=== PATIENT | male | born 1995 | race Caucasian/White ===

== ENCOUNTER 2017-12-17 23:28 | Emergency (ER) | payer MEDICAID, OTHER ==
[2017-12-18] MEDS ORDERED: Lopressor 50 MG PO ONE (00:06)
--- NOTE | 2017-12-18 00:06 | ERPHSYRPT ---
- History of Present Illness Time Seen by Provider: 12/17/17 23:55 Source: patient Exam Limitations: clinical condition Patient Subjective Stated Complaint: pt states he has a swollen gland on the right side of his throat that has been painful and edematous for approx 1 week. Triage Nursing Assessment: pt a&o x3; skin p, w, & d; no obvious distress noted ; ambulated to room per self. Physician History: PATIENT COMPLAINS OF SWOLLEN GLANDS, PAIN UPON SWALLOWING, OVER THE PAST 2 DAYS. DENIES DYSPNEA, COUGH, FEVER. Timing/Duration: day(s) Cough Quality/Degree: no cough Possible Cause: occasional episodes Modifying Factors: Improves With: activity Associated Symptoms: sore throat International travel in last 2 weeks: No Allergies/Adverse Reactions: No Known Drug Allergies Allergy (Verified 12/17/17 23:51) Hx Tetanus, Diphtheria Vaccination/Date Given: Yes Hx Influenza Vaccination/Date Given: No Hx Pneumococcal Vaccination/Date Given: Yes Immunizations Up to Date: No - Review of Systems Constitutional: No Fever, No Chills Eyes: No Symptoms Ears, Nose, & Throat: Throat Pain Respiratory: No Symptoms Cardiac: No Symptoms Abdominal/Gastrointestinal: No Symptoms Musculoskeletal: No Symptoms - Past Medical History Pertinent Past Medical History: Yes Neurological History: No Pertinent History ENT History: No Pertinent History Cardiac History: Arrhythmia Respiratory History: Asthma Endocrine Medical History: Hyperthyroidism, Other Musculoskeletal History: No Pertinent History GI Medical History: No Pertinent History History: No Pertinent History Psycho-Social History: Anxiety, Panic Disorder Male Reproductive Disorders: No Pertinent History Other Medical History: TACHYCARDIA. GRAVES DISEASE - Past Surgical History Past Surgical History: Yes Neuro Surgical History: No Pertinent History Cardiac: No Pertinent History Respiratory: No Pertinent History Gastrointestinal: No Pertinent History Genitourinary: No Pertinent History Musculoskeletal: No Pertinent History Male Surgical History: No Pertinent History Other Surgical History: TONSILS - Social History Smoking Status: Current every day smoker How long have you smoked: 5 Exposure to second hand smoke: Yes Drug Use: none Patient Lives Alone: No - Nursing Vital Signs Nursing Vital Signs: Initial Vital Signs Temperature 97.8 F 12/17/17 23:37 Pulse Rate 144 H 12/17/17 23:37 Respiratory Rate 20 12/17/17 23:37 Blood Pressure 137/90 12/17/17 23:37 O2 Sat by Pulse Oximetry 98 12/17/17 23:37 Pain Scale Pain Intensity 0 - Physical Exam General Appearance: no apparent distress, alert Eye Exam: PERRL/EOMI, eyes nml inspection Ears, Nose, Throat Exam: normal ENT inspection, TMs normal, pharynx normal, moist mucous membranes Neck Exam: normal inspection, non-tender, supple, full range of motion, lymphadenopathy Respiratory Exam: normal breath sounds, lungs clear, No respiratory distress Cardiovascular Exam: regular rate/rhythm, normal heart sounds, tachycardia Gastrointestinal/Abdomen Exam: soft, No tenderness Back Exam: normal inspection, No CVA tenderness, No vertebral tenderness Extremity Exam: normal inspection, normal range of motion Neurologic Exam: alert, oriented x 3, cooperative, normal mood/affect, sensation nml, No motor deficits Skin Exam: normal color, warm, dry, No rash Lymphatic Exam: No adenopathy SpO2: 98 Oxygen Delivery: Room Air Ordered Tests: Medication Summary Discontinued Medications Generic Name Dose Route Start Last Admin Trade Name Redq PRN Reason Stop Dose Admin Metoprolol Tartrate 50 mg 12/18/17 00:06 12/18/17 00:11 Lopressor 50 Mg PO 12/18/17 00:07 50 mg STAT ONE Administration Metoprolol Tartrate Confirm 12/18/17 00:10 Lopressor 50 Mg Administered 12/18/17 00:11 Dose 50 mg .ROUTE .[facility]-MED ONE - Progress Progress: re-examined, unchanged Progress Note: 12/18/17 00:32 ADMINISTERED LOPRESSOR 50MG ORALLY, AMOXICILLIN 500MG ORALLY Counseled pt/family regarding: lab results, diagnosis, need for follow-up - Departure Time of Disposition: 01:00 Departure Disposition: Home Clinical Impression: CERVICAL ADENITIS, MEDICATION NONCOMPLIANCE Condition: Stable Critical Care Time: No Referrals: EDDIE ROBERTSON [ACTIVE STAFF] - Additional Instructions: TAKE MEDICATIONS LOPRESSOR 50MG TWICE DAILY AND METHIMAZOLE 20 MG DAILY ALONG WITH ANTIBIOTIC AMOXICILLIN 500MG EVERY 8 HOURS FOR 10 DAYS. CONSULT YOUR PRIMARY CARE PROVIDER FOR FOLLOWUP IN 1 WEEK. Prescriptions: Amoxicillin 500 mg PO TID #21 capsule Methimazole [Northyx] 20 mg PO DAILY #30 tablet Metoprolol Tartrate [Lopressor] 50 mg PO BID #60 tablet
[2017-12-18] MEDS ORDERED: Lopressor 50 MG ONE (00:10)
[2017-12-18 01:08] VITALS: BP 115/91; PULSE 112; O2SAT 100
== END 2017-12-18 01:05 | disposition home or self-care (01) ==
LOC: ED 23:28
DX: I88.9 Nonspecific lymphadenitis, unspecified (principal); Z91.14 Patient's other noncompliance with medication regimen
CPT/HCPCS: 87651; 99283; A9270-GY

== ENCOUNTER 2017-12-27 08:27 | Emergency (ER) | payer OTHER ==
[2017-12-27] MEDS ORDERED: Sodium Chloride 0.9% 1000 ML 1,000 ML IV STA (08:38)
[2017-12-27] MEDS ORDERED: MORPHINE SULFATE 4 MG INJ IV ONE (08:38)
[2017-12-27] MEDS ORDERED: Zofran 4 MG/2 ML VIAL IV ONE (08:38)
[2017-12-27] MEDS ORDERED: Sodium Chloride 0.9% 1000 ML 1,000 ML ONE (08:43)
[2017-12-27] MEDS ORDERED: Zofran 4 MG/2 ML VIAL ONE (08:46)
[2017-12-27] MEDS ORDERED: MORPHINE SULFATE 4 MG INJ ONE (08:46)
[2017-12-27] MEDS ORDERED: BABY ASPIRIN 81 MG CHEW ONE (08:47)
[2017-12-27] MEDS ORDERED: BABY ASPIRIN 81 MG CHEW PO ONE (08:49)
--- NOTE | 2017-12-27 08:49 | ERPHSYRPT ---
- History of Present Illness Time Seen by Provider: 12/27/17 08:43 Historian: patient Exam Limitations: no limitations Physician History: 22-year-old white male with history of hyperthyroidism, asthma, arrhythmia, panic disorder, anxiety, tachycardia, Patient arrives with complaint of pain in the epigastric and low substernal region described as sharp worse with breathing associated with nausea associated with shortness of breath onset at approximately 7:30 this morning patient states he was playing video games when it came on. Past medical history includes hyperthyroidism, asthma, arrhythmia, panic disorder, anxiety, tachycardia. Past surgical history includes tonsils is he still him him social history includes tobacco use gasoline given aspirin there is no reason he can't transfer techs to him. . Timing/Duration: today (7:30 this morning states similar episode yesterday am same time) Activities at Onset: other (playing video games) Quality: sharpness Location: substernal, epigastric Chest Pain Radiation: no radiation Severity of Pain-Max: moderate Modifying Factors: Improves With: breathing (worse with breathing) Associated Symptoms: nausea, abdominal pain (epigastric pain), shortness of breath, hurts to breathe (pain with breathing), No vomiting, No palpitations, No heartburn, No cough, No diaphoresis, No fever, No fatigue, No weakness, No swelling/lump in chest, No syncope, No rash, No headache, No dizziness, No edema , No back pain Prior Chest Pain/Cardiac Workup: no prior chest pain Nitro Today/Relief: no nitro taken today Aspirin Treatment Today: 81 mg x 4, provided by ED Allergies/Adverse Reactions: No Known Drug Allergies Allergy (Verified 12/17/17 23:51) Hx Tetanus, Diphtheria Vaccination/Date Given: Yes Hx Influenza Vaccination/Date Given: No Hx Pneumococcal Vaccination/Date Given: Yes - Review of Systems Constitutional: No Fever, No Chills Eyes: No Symptoms Ears, Nose, & Throat: No Symptoms, Stridor Respiratory: Dyspnea, No Cough, No Cyanosis, No Stridor, No Wheezing, No Other Cardiac: Chest Pain (low substernal and epigastric chest pain) Abdominal/Gastrointestinal: Abdominal Pain (Epigastric pain), Nausea, No Vomiting, No Diarrhea, No Constipation, No Hematemesis, No Hematochezia, No Melena, No Dysphagia, No Appetite Changes Genitourinary Symptoms: No Symptoms Musculoskeletal: No Back Pain, No Neck Pain Skin: No Symptoms, No Rash Neurological: No Dizziness, No Focal Weakness, No Sensory Changes Psychological: No Symptoms Endocrine: No Symptoms All Other Systems: Reviewed and Negative - Past Medical History Pertinent Past Medical History: Yes Neurological History: No Pertinent History ENT History: No Pertinent History Cardiac History: Arrhythmia Respiratory History: Asthma Endocrine Medical History: Hyperthyroidism, Other Musculoskeletal History: No Pertinent History GI Medical History: No Pertinent History History: No Pertinent History Psycho-Social History: Anxiety, Panic Disorder Male Reproductive Disorders: No Pertinent History Other Medical History: TACHYCARDIA. GRAVES DISEASE - Past Surgical History Past Surgical History: Yes Neuro Surgical History: No Pertinent History Cardiac: No Pertinent History Respiratory: No Pertinent History Gastrointestinal: No Pertinent History Genitourinary: No Pertinent History Musculoskeletal: No Pertinent History Male Surgical History: No Pertinent History Other Surgical History: TONSILS - Social History Smoking Status: Current every day smoker How long have you smoked: 5 Exposure to second hand smoke: Yes Drug Use: none Patient Lives Alone: No - Nursing Vital Signs Nursing Vital Signs: Initial Vital Signs Temperature 97.7 F 12/27/17 08:28 Pulse Rate 118 H 12/27/17 08:28 Respiratory Rate 18 12/27/17 08:28 Blood Pressure 160/99 12/27/17 08:28 O2 Sat by Pulse Oximetry 99 12/27/17 08:28 Pain Scale Pain Intensity 0 - Physical Exam General Appearance: moderate distress, anxiety, thin Eye Exam: PERRL/EOMI, eyes nml inspection Ears, Nose, Throat Exam: normal ENT inspection, moist mucous membranes Neck Exam: normal inspection, non-tender, supple, full range of motion Respiratory Exam: normal breath sounds, lungs clear, No respiratory distress Cardiovascular Exam: regular rate/rhythm, normal heart sounds, tachycardia ( mild tachycardia), capillary refill <2 sec Gastrointestinal/Abdomen Exam: soft, normal bowel sounds, No tenderness, No mass Back Exam: normal inspection, No CVA tenderness, No vertebral tenderness Extremity Exam: normal inspection, normal range of motion Neurologic Exam: alert, oriented x 3, cooperative, note teller II-XII nml as tested, normal mood/affect, sensation nml, No motor deficits Skin Exam: normal color, warm, dry SpO2 Interpretation: normal (99%), borderline oxygenation - Course Nursing assessment & vital signs reviewed: Yes EKG Interpreted by Me: RATE (105 bpm), Sinus Rhythm, Sinus Tach, NORMAL AXIS, Other (EKG: Sinus tachycardia 105 bpm, normal axis, no acute ST or T wave changes) - Radiology Exams Chest X-ray Interpretation: Interpreted by me (no acute disease process noted) Ordered Tests: Active Orders 24 hr Category Date Time Status Refrigerator Repairman STAT Care 12/27/17 08:39 Active EKG-ER Only STAT Care 12/27/17 08:38 Active IV Insertion STAT Care 12/27/17 08:38 Active Pulse Oximetry (ED) STAT Care 12/27/17 08:38 Active Regular Diet Diet 12/27/17 Dinner Active CHEST 1 VIEW (PORTABLE) Stat Exams 12/27/17 08:39 Taken AMYLASE Routine Lab 12/27/17 08:40 Completed CBC W DIFF Stat Lab 12/27/17 08:40 Completed CMP Routine Lab 12/27/17 08:40 Completed D-DIMER QUANTITATION Stat Lab 12/27/17 08:40 Completed LIPASE Routine Lab 12/27/17 08:40 Completed PROTIME WITH INR Stat Lab 12/27/17 08:40 Completed PTT Stat Lab 12/27/17 08:40 Completed TROPONIN Q3H Lab 12/27/17 08:40 Completed TROPONIN Q3H Lab 12/27/17 11:47 Completed TROPONIN Q3H Lab 12/27/17 14:45 Ordered TROPONIN Q3H Lab 12/27/17 17:45 Ordered TROPONIN Q3H Lab 12/27/17 20:45 Ordered TSH [TSH, 3RD Generation] Stat Lab 12/27/17 08:40 Completed Urine Triage Profile Stat Lab 12/27/17 09:47 Completed Medication Summary Discontinued Medications Generic Name Dose Route Start Last Admin Trade Name Freq PRN Reason Stop Dose Admin Aspirin 324 mg 12/27/17 08:49 12/27/17 08:58 Baby Aspirin 81 Mg Chew PO 12/27/17 08:50 324 mg STAT ONE Administration Aspirin Confirm 12/27/17 08:47 Baby Aspirin 81 Mg Chew Administered 12/27/17 08:48 Dose 324 mg .ROUTE .STK-MED ONE Sodium Chloride 1,000 mls @ 999 mls/hr 12/27/17 08:38 12/27/17 10:05 Sodium Chloride 0.9% 1000 Ml IV 12/27/17 09:38 Infused .Q1H1M STA Infusion Sodium Chloride Confirm 12/27/17 08:43 Sodium Chloride 0.9% 1000 Ml Administered 12/27/17 08:44 Dose 1,000 mls @ ud .ROUTE .STK-MED ONE Morphine Sulfate 4 mg 12/27/17 08:38 12/27/17 08:48 Morphine Sulfate 4 Mg Inj IV 12/27/17 08:39 4 mg STAT ONE Administration Morphine Sulfate Confirm 12/27/17 08:46 Morphine Sulfate 4 Mg Inj Administered 12/27/17 08:47 Dose 4 mg .ROUTE .STK-MED ONE Ondansetron HCl 4 mg 12/27/17 08:38 12/27/17 08:48 Zofran 4 Mg/2 Ml Vial IV 12/27/17 08:39 4 mg STAT ONE Administration Ondansetron HCl Confirm 12/27/17 08:46 Zofran 4 Mg/2 Ml Vial Administered 12/27/17 08:47 Dose 4 mg .ROUTE .STK-MED ONE Potassium Chloride 20 meq 12/27/17 09:49 12/27/17 10:02 Klor Con 10 Meq PO 12/27/17 09:50 20 meq STAT ONE Administration Potassium Chloride Confirm 12/27/17 10:01 Klor Con 10 Meq Administered 12/27/17 10:02 Dose 20 meq PO .STK-MED ONE Lab/Rad Data: Laboratory Result Diagrams 12/27/17 08:40 12/27/17 08:40 Laboratory Results 12/27/17 12/27/17 12/27/17 Range/Units 11:47 09:47 08:40 WBC (4.0-10.5) K/mm3 RBC (4.1-5.6) M/mm3 Hgb (12.5-18.0) gm/dl Hct (42-50) % MCV (78-100) fl MCH (26-32) pg MCHC (32-36) g/dl RDW (11.5-14.0) % Plt Count (150-450) K/mm3 MPV (6-9.5) fl Gran % (36.0-66.0) % Eos # (Auto) (0-0.5) Absolute Lymphs (auto) (1.0-4.6) Absolute Monos (auto) (0.0-1.3) Lymphocytes % (24.0-44.0) % Monocytes % (0.0-12.0) % Eosinophils % (0.00-5.0) % Basophils % (0.0-0.4) % Absolute Granulocytes (1.4-6.9) Basophils # (0-0.4) PT (8.83-12.87) SECONDS INR (0.8-3.0) APTT (24.1-36.1) SECONDS D-Dimer (215-500) ng/mL Sodium (137-145) mmol/L Potassium (3.5-5.1) mmol/L Chloride (98-107) mmol/L Carbon Dioxide (22-30) mmol/L Anion Gap (5-15) MEQ/L BUN (9-20) mg/dL Creatinine (0.66-1.25) mg/dL Estimated GFR ML/MIN Glucose (74-106) mg/dL Calcium (8.4-10.2) mg/dL Total Bilirubin (0.2-1.3) mg/dL AST (17-59) U/L ALT (0-50) U/L Alkaline Phosphatase (38-126) U/L Troponin I < 0.012 (0.000-0.034) ng/mL Serum Total Protein (6.3-8.2) g/dL Albumin (3.5-5.0) g/dL Amylase (30-110) U/L Lipase (23-300) U/L Free T4 5.02 H (0.76-1.46) ng/dL TSH 3rd Generation (0.47-4.68) mIU/L Urine Opiates Level POSITIVE (NEGATIVE) Ur Methadone NEGATIVE (NEGATIVE) Urine Barbiturates NEGATIVE (NEGATIVE) Ur Phencyclidine (PCP) NEGATIVE (NEGATIVE) Urine Amphetamine NEGATIVE (NEGATIVE) U Benzodiazepine Level NEGATIVE (NEGATIVE) Urine Cocaine NEGATIVE (NEGATIVE) Urine Marijuana (THC) NEGATIVE (NEGATIVE) Slides for Path Review 12/27/17 12/27/17 12/27/17 Range/Units 08:40 08:40 08:40 WBC (4.0-10.5) K/mm3 RBC (4.1-5.6) M/mm3 Hgb (12.5-18.0) gm/dl Hct (42-50) % MCV (78-100) fl MCH (26-32) pg MCHC (32-36) g/dl RDW (11.5-14.0) % Plt Count (150-450) K/mm3 MPV (6-9.5) fl Gran % (36.0-66.0) % Eos # (Auto) (0-0.5) Absolute Lymphs (auto) (1.0-4.6) Absolute Monos (auto) (0.0-1.3) Lymphocytes % (24.0-44.0) % Monocytes % (0.0-12.0) % Eosinophils % (0.00-5.0) % Basophils % (0.0-0.4) % Absolute Granulocytes (1.4-6.9) Basophils # (0-0.4) PT 12.6 (8.83-12.87) SECONDS INR 1.08 (0.8-3.0) APTT 29.5 (24.1-36.1) SECONDS D-Dimer < 215 L (215-500) ng/mL Sodium 139 (137-145) mmol/L Potassium 3.2 L (3.5-5.1) mmol/L Chloride 101 (98-107) mmol/L Carbon Dioxide 25 (22-30) mmol/L Anion Gap 16.4 H (5-15) MEQ/L BUN 10 (9-20) mg/dL Creatinine 0.33 L (0.66-1.25) mg/dL Estimated GFR > 60.0 ML/MIN Glucose 120 H (74-106) mg/dL Calcium 9.9 (8.4-10.2) mg/dL Total Bilirubin 0.40 (0.2-1.3) mg/dL AST 30 (17-59) U/L ALT 31 (0-50) U/L Alkaline Phosphatase 206 H (38-126) U/L Troponin I < 0.012 (0.000-0.034) ng/mL Serum Total Protein 7.9 (6.3-8.2) g/dL Albumin 4.8 (3.5-5.0) g/dL Amylase 43 (30-110) U/L Lipase 72 (23-300) U/L Free T4 (0.76-1.46) ng/dL TSH 3rd Generation < 0.015 L (0.47-4.68) mIU/L Urine Opiates Level (NEGATIVE) Ur Methadone (NEGATIVE) Urine Barbiturates (NEGATIVE) Ur Phencyclidine (PCP) (NEGATIVE) Urine Amphetamine (NEGATIVE) U Benzodiazepine Level (NEGATIVE) Urine Cocaine (NEGATIVE) Urine Marijuana (THC) (NEGATIVE) Slides for Path Review 12/27/17 Range/Units 08:40 WBC 11.1 H (4.0-10.5) K/mm3 RBC 5.37 (4.1-5.6) M/mm3 Hgb 14.7 (12.5-18.0) gm/dl Hct 44.0 (42-50) % MCV 81.9 (78-100) fl MCH 27.4 (26-32) pg MCHC 33.4 (32-36) g/dl RDW 13.0 (11.5-14.0) % Plt Count 270 (150-450) K/mm3 MPV 10.0 H (6-9.5) fl Gran % 39.6 (36.0-66.0) % Eos # (Auto) 0.25 (0-0.5) Absolute Lymphs (auto) 5.32 H (1.0-4.6) Absolute Monos (auto) 1.09 (0.0-1.3) Lymphocytes % 48.1 H (24.0-44.0) % Monocytes % 9.8 (0.0-12.0) % Eosinophils % 2.3 (0.00-5.0) % Basophils % 0.2 (0.0-0.4) % Absolute Granulocytes 4.39 (1.4-6.9) Basophils # 0.02 (0-0.4) PT (8.83-12.87) SECONDS INR (0.8-3.0) APTT (24.1-36.1) SECONDS D-Dimer (215-500) ng/mL Sodium (137-145) mmol/L Potassium (3.5-5.1) mmol/L Chloride (98-107) mmol/L Carbon Dioxide (22-30) mmol/L Anion Gap (5-15) MEQ/L BUN (9-20) mg/dL Creatinine (0.66-1.25) mg/dL Estimated GFR ML/MIN Glucose (74-106) mg/dL Calcium (8.4-10.2) mg/dL Total Bilirubin (0.2-1.3) mg/dL AST (17-59) U/L ALT (0-50) U/L Alkaline Phosphatase (38-126) U/L Troponin I (0.000-0.034) ng/mL Serum Total Protein (6.3-8.2) g/dL Albumin (3.5-5.0) g/dL Amylase (30-110) U/L Lipase (23-300) U/L Free T4 (0.76-1.46) ng/dL TSH 3rd Generation (0.47-4.68) mIU/L Urine Opiates Level (NEGATIVE) Ur Methadone (NEGATIVE) Urine Barbiturates (NEGATIVE) Ur Phencyclidine (PCP) (NEGATIVE) Urine Amphetamine (NEGATIVE) U Benzodiazepine Level (NEGATIVE) Urine Cocaine (NEGATIVE) Urine Marijuana (THC) (NEGATIVE) Slides for Path Review YES - Progress Progress: improved Air Movement: fair Progress Note: 12/27/17 09:39 22-year-old white male with history of hyperthyroidism, asthma, arrhythmia, panic disorder, anxiety, tachycardia, Graves' disease Patient arrives with complaint of epigastric and low substernal chest pain described as a sharpness onset at 7:30 this morning associated with nausea and shortness of breath. Patient states he took a metoprolol tablet this morning He states he has not been taking this regularly. He is given morphine and Zofran 1 L of fluids he is feeling better. Blood pressure is somewhat elevated. Patient's labs essentially normal with the exception of a potassium of 3.2 troponin within normal limits white count mildly elevated at 11.1 chest x-ray no acute disease process are noted. Plan to repeat troponin 3 hours after last draw. 12/27/17 10:40 Patient continues to do well. Blood pressure is stable heart rate improved. Family states patient has not been taking his home medications. Patient's troponin within normal limits chemistry essentially normal with the exception of a potassium of 3.2. CBC White blood cell 11.1 hemoglobin 14.7 hematocrit 44. Amylase and lipase within normal limits chest x-ray no acute changes EKG sinus tachycardia 10 5 bpm normal axis no acute ST or T wave changes. Patient did have elevated free T4 of 5.02 TSH is less than 0.015. I've discussed the patient's case with Dr. Fontenot. Patient will most likely be released after second troponin if it is normal. will be reinforced that the patient needs to take his medications as prescribed on a regular basis. Patient will need to follow-up with Dr. Fontenot. 12/27/17 12:32 Patient without further chest pain. Patient's blood pressure heart rate are stable. Repeat troponin within normal limits. Will plan to discharge patient. Patient advised to be sure that he takes his medications at home as prescribed. Patient advised to contact Dr. Fontenot's office and schedule an appointment for follow-up. - Departure Time of Disposition: 12:33 Departure Disposition: Home Clinical Impression: Hyperthyroidism, Epigastric abdominal pain Chest pain Qualifiers: Chest pain type: unspecified Qualified Code(s): R07.9 - Chest pain, unspecified Condition: Fair Critical Care Time: No Referrals: DOCTOR,NO FAMILY [NON-STAFF PHY W/O PRIVILEGES] - Additional Instructions: Return home. Rest. Take your medications as prescribed by your family doctor. Follow-up with your family doctor. Return for acute distress or for severe symptoms.
[2017-12-27 09:15] LABS: BASOPHIL % 0.2 % (0.0-0.4); Basophil (Absolute #) 0.02 (0-0.4); Eosinophil % 2.3 % (0.00-5.0); Eosinophil (Absolute #) 0.25 (0-0.5); Granulocyte Absolute (ANC) 4.39 (1.4-6.9); Granulocytes % 39.6 % (36.0-66.0); Hemoglobin 14.7 gm/dl (12.5-18.0); Lymphocyte (Absolute #) 5.32 (1.0-4.6); Lymphocytes % 48.1 % (24.0-44.0); Mean Cell Volume 81.9 fl (78-100); Mean Corpuscular Hemoglobin 27.4 pg (26-32); Mean Corpuscular Hgb Concent. 33.4 g/dl (32-36); Monocyte (Absolute #) 1.09 (0.0-1.3); Monocytes % 9.8 % (0.0-12.0); Platelet Count 270 K/mm3 (150-450); Red Blood Count 5.37 M/mm3 (4.1-5.6); White Blood Count 11.1 K/mm3 (4.0-10.5)
[2017-12-27 09:17] LABS: INR 1.08 (0.8-3.0)
[2017-12-27 09:19] LABS: PTT 29.5 SECONDS (24.1-36.1)
[2017-12-27 09:30] LABS: D-DIMER QUANTITATION < 215 ng/mL (215-500)
[2017-12-27 09:32] LABS: ALBUMIN 4.8 g/dL (3.5-5.0); ALKALINE PHOSPHATASE 206 U/L (38-126); AMYLASE 43 U/L (30-110); ANION GAP 16.4 MEQ/L (5-15); BLOOD UREA NITROGEN 10 mg/dL (9-20); CHLORIDE 101 mmol/L (98-107); Calcium 9.9 mg/dL (8.4-10.2); Carbon Dioxide 25 mmol/L (22-30); Creatinine 1 0.33 mg/dL (0.66-1.25); Glucose 120 mg/dL (74-106); LIPASE 72 U/L (23-300); Potassium 3.2 mmol/L (3.5-5.1); SGOT/AST 30 U/L (17-59); SGPT/ALT 31 U/L (0-50); SODIUM 139 mmol/L (137-145); TROPONIN < 0.012 ng/mL (0.000-0.034); Total Protein 7.9 g/dL (6.3-8.2)
[2017-12-27] MEDS ORDERED: Klor Con 10 MEQ PO ONE ×2 (09:49→10:01)
[2017-12-27 10:11] LABS: Amphetamine,Urine NEGATIVE (NEGATIVE); Barbiturate,Urine NEGATIVE (NEGATIVE); Benzodiazepine,Urine NEGATIVE (NEGATIVE); Cocaine,Urine NEGATIVE (NEGATIVE); Methadone,Urine NEGATIVE (NEGATIVE); Opiate,Urine POSITIVE (NEGATIVE); PCP,Urine NEGATIVE (NEGATIVE); THC,Urine NEGATIVE (NEGATIVE)
[2017-12-27 11:37] LABS: Slide Review 1 YES
[2017-12-27 12:45] VITALS: BP 126/63; PULSE 80; O2SAT 97
--- NOTE | 2017-12-28 10:48 | XRAY ---
Indication: Lower chest/upper abdomen pain. Comparison: June 10, 2014. Portable chest remains hyperinflated and clear. Heart and mediastinal structures within normal limits. Bony thorax intact. Impression: Stable nonacute hyperinflated chest.
== END 2017-12-27 12:43 | disposition home or self-care (01) ==
LOC: ED 08:27
DX: R07.89 Other chest pain (principal); E05.90 Thyrotoxicosis, unspecified without thyrotoxic crisis or storm; R10.13 Epigastric pain; R06.00 Dyspnea, unspecified; R11.0 Nausea
CPT/HCPCS: 36000; 36415; 71045; 80053; 80307; 82150; 83690; 84439; 84443; 84484; 85025; 85379; 85610; 85730; 93005; 93041; 96360; 96374; 96375; 99284; J2270; J2405; A9270-GY

== ENCOUNTER 2017-12-31 04:13 | Observation (INO) | payer OTHER ==
[2017-12-31] MEDS ORDERED: Sodium Chloride 0.9% 1000 ML 1,000 ML IV STA (04:28)
[2017-12-31] MEDS ORDERED: BABY ASPIRIN 81 MG CHEW PO ONE (04:28)
[2017-12-31] MEDS ORDERED: Pepcid 20 MG VIAL IV ONE ×2 (04:30→04:33)
[2017-12-31] MEDS ORDERED: Sodium Chloride 0.9% 1000 ML 1,000 ML ONE (04:30)
[2017-12-31] MEDS ORDERED: BABY ASPIRIN 81 MG CHEW ONE (04:33)
--- NOTE | 2017-12-31 04:36 | ERPHSYRPT ---
- History of Present Illness Time Seen by Provider: 12/31/17 04:26 Historian: patient Exam Limitations: no limitations Patient Subjective Stated Complaint: pt states he has been having chest pain since approx . points to lt lower chest/luq Triage Nursing Assessment: pt alert and oriented, asnwers questions approp. pt ambulatory with steady gait noted. respirations nonlabored with lungs cta. heart rate 110 on monitor sinus tach. skin pink warn and dry. Physician History: This is a 22-year-old white male with history of hyperthyroidism, asthma, arrhythmia, panic disorder, anxiety, tachycardia, Graves' disease Patient arrives with complaint of pain in his upper abdomen low chest the symptoms for 1-3 hours associated with shortness of breath no nausea no vomiting. Patient was seen here on December 27 for the same thing at that time patient had normal EKG normal troponin 2 he was noted to have an elevated free T4 and a decreased thyroid stimulating hormone. Patient at that time as well had not been taking his metoprolol. He states he has now been taking his metoprolol he states he was out walking when the pain began today. Past medical history includes hyperthyroidism, asthma, arrhythmia, panic disorder, anxiety, tachycardia, Graves' disease. Past surgical history includes tonsils. Timing/Duration: today (1-3 hours ago) Activities at Onset: other (walking) Quality: sharpness Location: epigastric, abdomen (upper abdomen), other (low chest epigastric region) Chest Pain Radiation: no radiation Severity of Pain-Max: moderate Severity of Pain-Current: moderate Modifying Factors: Improves With: nothing Associated Symptoms: shortness of breath, No nausea, No vomiting, No palpitations, No heartburn, No abdominal pain, No cough, No hurts to breathe, No diaphoresis, No chills, No fever, No fatigue, No weakness, No swelling/lump in chest, No syncope, No rash, No headache, No dizziness, No edema, No back pain Prior Chest Pain/Cardiac Workup: no prior chest pain (patient seen here 4 days ago for same complaint) Nitro Today/Relief: no nitro taken today Aspirin Treatment Today: 81 mg x 4, provided by ED Allergies/Adverse Reactions: No Known Drug Allergies Allergy (Verified 12/31/17 04:24) Hx Tetanus, Diphtheria Vaccination/Date Given: Yes Hx Influenza Vaccination/Date Given: No Hx Pneumococcal Vaccination/Date Given: Yes Immunizations Up to Date: Yes - Review of Systems Constitutional: No Fever, No Chills Eyes: No Symptoms Ears, Nose, & Throat: No Symptoms Respiratory: Dyspnea, No Cough, No Cyanosis, No Dyspnea on Exertion (LINDQUIST), No Stridor Cardiac: Chest Pain, No Edema, No Palpitations, No Syncope, No Orthopnea Abdominal/Gastrointestinal: No Abdominal Pain, No Nausea, No Vomiting, No Diarrhea Genitourinary Symptoms: No Dysuria Musculoskeletal: No Back Pain, No Neck Pain Skin: No Rash Neurological: No Dizziness, No Focal Weakness, No Sensory Changes Psychological: No Symptoms Endocrine: No Symptoms All Other Systems: Reviewed and Negative - Past Medical History Pertinent Past Medical History: Yes Neurological History: No Pertinent History ENT History: No Pertinent History Cardiac History: Arrhythmia Respiratory History: Asthma Endocrine Medical History: Hyperthyroidism, Other Musculoskeletal History: No Pertinent History GI Medical History: No Pertinent History History: No Pertinent History Psycho-Social History: Anxiety, Panic Disorder Male Reproductive Disorders: No Pertinent History Other Medical History: TACHYCARDIA. GRAVES DISEASE - Past Surgical History Past Surgical History: Yes Neuro Surgical History: No Pertinent History Cardiac: No Pertinent History Respiratory: No Pertinent History Gastrointestinal: No Pertinent History Genitourinary: No Pertinent History Musculoskeletal: No Pertinent History Male Surgical History: No Pertinent History Other Surgical History: TONSILS - Social History Smoking Status: Current every day smoker How long have you smoked: 5 Exposure to second hand smoke: Yes Drug Use: none Patient Lives Alone: No - Nursing Vital Signs Nursing Vital Signs: Initial Vital Signs Pulse Rate 110 H 12/31/17 04:14 Respiratory Rate 18 12/31/17 04:14 Blood Pressure 152/90 12/31/17 04:14 O2 Sat by Pulse Oximetry 100 12/31/17 04:14 Pain Scale Pain Intensity 5 - Physical Exam General Appearance: mild distress, anxiety Eye Exam: PERRL/EOMI, eyes nml inspection Ears, Nose, Throat Exam: normal ENT inspection, moist mucous membranes Neck Exam: normal inspection, non-tender, supple, full range of motion Respiratory Exam: normal breath sounds, lungs clear, No respiratory distress Cardiovascular Exam: tachycardia Gastrointestinal/Abdomen Exam: soft, No tenderness, No mass Back Exam: normal inspection, No CVA tenderness, No vertebral tenderness Extremity Exam: normal inspection, normal range of motion Neurologic Exam: alert, oriented x 3, cooperative, director of patient financial services II-XII nml as tested, normal mood/affect, sensation nml, No motor deficits Skin Exam: normal color, warm, dry SpO2 Interpretation: normal (100%) SpO2: 100 Oxygen Delivery: Room Air - Course Nursing assessment & vital signs reviewed: Yes EKG Interpreted by Me: RATE (101 bpm), Sinus Tach, NORMAL AXIS, Other (EKG: Sinus tachycardia, 101 bpm, normal axis, no acute sst or t wave changes noted.) Ordered Tests: Active Orders 24 hr Category Date Time Status Entry Driver Operator STAT Care 12/31/17 04:29 Active EKG-ER Only STAT Care 12/31/17 04:28 Active IV Insertion STAT Care 12/31/17 04:28 Active Pulse Oximetry (ED) STAT Care 12/31/17 04:28 Active CHEST 1 VIEW (PORTABLE) Stat Exams 12/31/17 04:29 Taken AMYLASE Stat Lab 12/31/17 04:20 Completed CBC W DIFF Stat Lab 12/31/17 04:20 Completed CMP Stat Lab 12/31/17 04:20 Completed D-DIMER QUANTITATION Stat Lab 12/31/17 04:20 Completed LIPASE Stat Lab 12/31/17 04:20 Completed PROTIME WITH INR Stat Lab 12/31/17 04:20 Completed PTT Stat Lab 12/31/17 04:20 Completed TROPONIN Q3H Lab 12/31/17 04:20 Completed TROPONIN Q3H Lab 12/31/17 07:30 Ordered TROPONIN Q3H Lab 12/31/17 10:30 Ordered TROPONIN Q3H Lab 12/31/17 13:30 Ordered TROPONIN Q3H Lab 12/31/17 16:30 Ordered Medication Summary Discontinued Medications Generic Name Dose Route Start Last Admin Trade Name Freq PRN Reason Stop Dose Admin Aspirin 324 mg 12/31/17 04:28 12/31/17 04:38 Baby Aspirin 81 Mg Chew PO 12/31/17 04:29 324 mg STAT ONE Administration Aspirin Confirm 12/31/17 04:33 Baby Aspirin 81 Mg Chew Administered 12/31/17 04:34 Dose 324 mg .ROUTE .STK-MED ONE Famotidine 20 mg 12/31/17 04:30 12/31/17 04:38 Pepcid 20 Mg Vial IV 12/31/17 04:31 20 mg STAT ONE Administration Famotidine Confirm 12/31/17 04:33 Pepcid 20 Mg Vial Administered 12/31/17 04:34 Dose 20 mg IV .STK-MED ONE Sodium Chloride 1,000 mls @ 999 mls/hr 12/31/17 04:28 12/31/17 04:38 Sodium Chloride 0.9% 1000 Ml IV 12/31/17 05:28 999 mls/hr .Q1H1M STA Administration Sodium Chloride Confirm 12/31/17 04:30 Sodium Chloride 0.9% 1000 Ml Administered 12/31/17 04:31 Dose 1,000 mls @ ud .ROUTE .STK-MED ONE Lab/Rad Data: Laboratory Result Diagrams 12/31/17 04:20 12/31/17 04:20 Laboratory Results 12/31/17 12/31/17 12/31/17 Range/Units 04:20 04:20 04:20 WBC (4.0-10.5) K/mm3 RBC (4.1-5.6) M/mm3 Hgb (12.5-18.0) gm/dl Hct (42-50) % MCV (78-100) fl MCH (26-32) pg MCHC (32-36) g/dl RDW (11.5-14.0) % Plt Count (150-450) K/mm3 MPV (6-9.5) fl Gran % (36.0-66.0) % Eos # (Auto) (0-0.5) Absolute Lymphs (auto) (1.0-4.6) Absolute Monos (auto) (0.0-1.3) Lymphocytes % (24.0-44.0) % Monocytes % (0.0-12.0) % Eosinophils % (0.00-5.0) % Basophils % (0.0-0.4) % Absolute Granulocytes (1.4-6.9) Basophils # (0-0.4) PT 12.9 H (8.83-12.87) SECONDS INR 1.11 (0.8-3.0) APTT 30.7 (24.1-36.1) SECONDS D-Dimer < 215 L (215-500) ng/mL Sodium (137-145) mmol/L Potassium (3.5-5.1) mmol/L Chloride (98-107) mmol/L Carbon Dioxide (22-30) mmol/L Anion Gap (5-15) MEQ/L BUN (9-20) mg/dL Creatinine (0.66-1.25) mg/dL Estimated GFR ML/MIN Glucose (74-106) mg/dL Calcium (8.4-10.2) mg/dL Total Bilirubin (0.2-1.3) mg/dL AST (17-59) U/L ALT (0-50) U/L Alkaline Phosphatase (38-126) U/L Troponin I < 0.012 (0.000-0.034) ng/mL Serum Total Protein (6.3-8.2) g/dL Albumin (3.5-5.0) g/dL Amylase 34 (30-110) U/L Lipase 69 (23-300) U/L 12/31/17 12/31/17 Range/Units 04:20 04:20 WBC 8.9 (4.0-10.5) K/mm3 RBC 5.89 H (4.1-5.6) M/mm3 Hgb 16.2 (12.5-18.0) gm/dl Hct 48.2 (42-50) % MCV 81.8 (78-100) fl MCH 27.5 (26-32) pg MCHC 33.6 (32-36) g/dl RDW 13.3 (11.5-14.0) % Plt Count 264 (150-450) K/mm3 MPV 9.9 H (6-9.5) fl Gran % 52.8 (36.0-66.0) % Eos # (Auto) 0.17 (0-0.5) Absolute Lymphs (auto) 3.38 (1.0-4.6) Absolute Monos (auto) 0.65 (0.0-1.3) Lymphocytes % 37.9 (24.0-44.0) % Monocytes % 7.3 (0.0-12.0) % Eosinophils % 1.9 (0.00-5.0) % Basophils % 0.1 (0.0-0.4) % Absolute Granulocytes 4.71 (1.4-6.9) Basophils # 0.01 (0-0.4) PT (8.83-12.87) SECONDS INR (0.8-3.0) APTT (24.1-36.1) SECONDS D-Dimer (215-500) ng/mL Sodium 138 (137-145) mmol/L Potassium 3.6 (3.5-5.1) mmol/L Chloride 100 (98-107) mmol/L Carbon Dioxide 24 (22-30) mmol/L Anion Gap 17.5 H (5-15) MEQ/L BUN 13 (9-20) mg/dL Creatinine 0.37 L (0.66-1.25) mg/dL Estimated GFR > 60.0 ML/MIN Glucose 106 (74-106) mg/dL Calcium 10.0 (8.4-10.2) mg/dL Total Bilirubin 0.40 (0.2-1.3) mg/dL AST 20 (17-59) U/L ALT 28 (0-50) U/L Alkaline Phosphatase 200 H (38-126) U/L Troponin I (0.000-0.034) ng/mL Serum Total Protein 8.4 H (6.3-8.2) g/dL Albumin 5.2 H (3.5-5.0) g/dL Amylase (30-110) U/L Lipase (23-300) U/L - Progress Progress: improved Air Movement: fair Progress Note: 12/31/17 05:31 22-year-old white male with history of hyperthyroidism, asthma, arrhythmia, panic disorder, anxiety, tachycardia, Graves' disease. Patient arrives with complaint of pain in his anterior chest upper abdomen described as sharp and shortness of breath for 1-3 hours prior to arrival. Patient had been seen on December 27 for essentially the same thing. At that time patient had normal troponin normal chest x-ray he did was noted to have an elevated free T4 and a decreased TSH. Patient also at that time was not taking his metoprolol. Patient states that he was out walking when his pain began today was sharp upper abdomen and lower chest he did have shortness of breath. Patient with mild tachycardia on arrival vitals were otherwise normal patient's EKG today sinus tachycardia 101 bpm normal axis no acute ST or T wave changes. Chest x-ray no acute disease process noted patient's chemistry CBC essentially normal troponin is normal d-dimer is normal. I've discussed the patient's case with Dr. Ron this is the patient's second presentation to the emergency room in 4 days secondary to the same complaint. Will plan on placing patient on telemetry obtaining serial enzymes. Patient has already received aspirin 324 mg as well as Pepcid 20 mg IV. . . - Departure Time of Disposition: 05:34 Departure Disposition: Observation Clinical Impression: Hyperthyroidism Chest pain Qualifiers: Chest pain type: unspecified Qualified Code(s): R07.9 - Chest pain, unspecified Condition: Fair Critical Care Time: No Referrals: ALEXEY KATE MD [Primary Care Provider] -
[2017-12-31 04:47] LABS: BASOPHIL % 0.1 % (0.0-0.4); Basophil (Absolute #) 0.01 (0-0.4); Eosinophil % 1.9 % (0.00-5.0); Eosinophil (Absolute #) 0.17 (0-0.5); Granulocyte Absolute (ANC) 4.71 (1.4-6.9); Granulocytes % 52.8 % (36.0-66.0); Hematocrit 48.2 % (42-50); Hemoglobin 16.2 gm/dl (12.5-18.0); Lymphocyte (Absolute #) 3.38 (1.0-4.6); Lymphocytes % 37.9 % (24.0-44.0); Mean Cell Volume 81.8 fl (78-100); Mean Corpuscular Hemoglobin 27.5 pg (26-32); Mean Corpuscular Hgb Concent. 33.6 g/dl (32-36); Mean Platelet Volume 9.9 fl (6-9.5); Monocyte (Absolute #) 0.65 (0.0-1.3); Monocytes % 7.3 % (0.0-12.0); Platelet Count 264 K/mm3 (150-450); Red Blood Count 5.89 M/mm3 (4.1-5.6); Red Cell Distribution Width 13.3 % (11.5-14.0); White Blood Count 8.9 K/mm3 (4.0-10.5)
[2017-12-31 04:59] LABS: INR 1.11 (0.8-3.0)
[2017-12-31 05:02] LABS: PTT 30.7 SECONDS (24.1-36.1)
[2017-12-31 05:04] LABS: ALBUMIN 5.2 g/dL (3.5-5.0); ALKALINE PHOSPHATASE 200 U/L (38-126); ANION GAP 17.5 MEQ/L (5-15); BLOOD UREA NITROGEN 13 mg/dL (9-20); CHLORIDE 100 mmol/L (98-107); Carbon Dioxide 24 mmol/L (22-30); Creatinine 1 0.37 mg/dL (0.66-1.25); Glucose 106 mg/dL (74-106); Potassium 3.6 mmol/L (3.5-5.1); SGOT/AST 20 U/L (17-59); SGPT/ALT 28 U/L (0-50); SODIUM 138 mmol/L (137-145); Total Protein 8.4 g/dL (6.3-8.2)
[2017-12-31 05:05] LABS: AMYLASE 34 U/L (30-110); D-DIMER QUANTITATION < 215 ng/mL (215-500); LIPASE 69 U/L (23-300)
[2017-12-31] MEDS ORDERED: Sodium Chloride 0.9% 10 ML FLUSH Syringe IV PRN (08:20)
--- NOTE | 2017-12-31 08:57 | PCM.HP ---
History of Present Illness - Chief Complaint Chief Complaint: chest pain History of Present Illness: is a 22 year old male with a history of hyperthyroidism who was last seen locally by Dr Marvin Majano in 2014, he has a history of hyperthyroidism and admits to not taking his methimazole on a regular basis as of late. He has been having chest pain the last several days and has been to the ER twice. He has no pain currently. He states he had been living in [facility] and was seeing a physician there but just recently moved back to the area. He denies hoarseness or difficulty swallowing. - Review of Systems Constitutional: No Fever, No Chills Respiratory: No Cough, No Short Of Breath Cardiac: Chest Pain Abdominal/Gastrointestinal: No Abdominal Pain, No Nausea, No Vomiting, No Diarrhea Genitourinary Symptoms: No Dysuria All Other Systems: Reviewed and Negative Medications & Allergies Home Medications: Home Medication List Methimazole [Northyx] 20 mg PO DAILY #30 tablet 12/18/17 [Rx Confirmed 12/31/17] Metoprolol Tartrate [Lopressor] 50 mg PO BID #60 tablet 12/18/17 [Rx Confirmed 12/31/17] Allergies/Adverse Reactions: Allergies Allergy/AdvReac Type Severity Reaction Status Date / Time No Known Drug Allergies Allergy Verified 12/31/17 04:24 - Past Medical History Past Medical History: Yes Neurological History: No Pertinent History ENT History: No Pertinent History Cardiac History: Arrhythmia Respiratory History: Asthma Endocrine Medical History: Hyperthyroidism, Other Musculoskelatal History: No Pertinent History GI Medical History: No Pertinent History History: No Pertinent History Pyscho-Social History: Anxiety, Panic Disorder Male Reproductive Disorders: No Pertinent History Comment: TACHYCARDIA. GRAVES DISEASE - Past Surgical History Past Surgical History: Yes Neuro Surgical History: No Pertinent History Cardiac History: No Pertinent History Respiratory Surgery: No Pertinent History GI Surgical History: No Pertinent History Genitourinary Surgical Hx: No Pertinent History Musculskeletal Surgical Hx: No Pertinent History Male Surgical History: No Pertinent History Other Surgical History: TONSILS - Social History Smoking Status: Current every day smoker How long have you smoked: "5 years" Exposure to second hand smoke: Yes Alcohol: None Drug Use: none - Physical Exam Vital Signs: Vital Signs - 24 hr Temp Pulse Pulse Resp BP Pulse Ox 12/31/17 08:01 97.7 F 103 H 18 115/68 98 10/31/18 06:24 97.7 F 103 H 18 115/68 97 12/31/17 05:55 104 H 18 125/74 100 12/31/17 05:34 100 12/31/17 05:29 79.7 F 103 H 18 135/75 100 12/31/17 05:07 99 H 20 133/75 100 12/31/17 04:31 100 12/31/17 04:14 113 H 110 H 18 152/90 100 General Appearance: no apparent distress, alert, thin Neurologic Exam: alert, oriented x 3, cooperative, normal mood/affect, nml cerebellar function, nml station & gait, sensation nml, No motor deficits Eye Exam: PERRL/EOMI, eyes nml inspection Neck Exam: normal inspection, non-tender, supple, No thyromegaly Respiratory Exam: normal breath sounds, lungs clear, No respiratory distress Cardiovascular Exam: regular rate/rhythm, normal heart sounds, normal peripheral pulses Gastrointestinal/Abdomen Exam: soft, normal bowel sounds, No tenderness, No mass Extremity Exam: normal inspection, normal range of motion, pelvis stable Skin Exam: normal color, warm, dry, No rash Results - Labs Lab/Micro Results: Lab Results-Last 24 Hours 12/31/17 12/31/17 12/31/17 Range/Units 04:20 04:20 04:20 WBC 8.9 (4.0-10.5) K/mm3 RBC 5.89 H (4.1-5.6) M/mm3 Hgb 16.2 (12.5-18.0) gm/dl Hct 48.2 (42-50) % MCV 81.8 (78-100) fl MCH 27.5 (26-32) pg MCHC 33.6 (32-36) g/dl RDW 13.3 (11.5-14.0) % Plt Count 264 (150-450) K/mm3 MPV 9.9 H (6-9.5) fl Gran % 52.8 (36.0-66.0) % Eos # (Auto) 0.17 (0-0.5) Absolute Lymphs (auto) 3.38 (1.0-4.6) Absolute Monos (auto) 0.65 (0.0-1.3) Lymphocytes % 37.9 (24.0-44.0) % Monocytes % 7.3 (0.0-12.0) % Eosinophils % 1.9 (0.00-5.0) % Basophils % 0.1 (0.0-0.4) % Absolute Granulocytes 4.71 (1.4-6.9) Basophils # 0.01 (0-0.4) PT 12.9 H (8.83-12.87) SECONDS INR 1.11 (0.8-3.0) APTT 30.7 (24.1-36.1) SECONDS D-Dimer < 215 L (215-500) ng/mL Sodium 138 (137-145) mmol/L Potassium 3.6 (3.5-5.1) mmol/L Chloride 100 (98-107) mmol/L Carbon Dioxide 24 (22-30) mmol/L Anion Gap 17.5 H (5-15) MEQ/L BUN 13 (9-20) mg/dL Creatinine 0.37 L (0.66-1.25) mg/dL Estimated GFR > 60.0 ML/MIN Glucose 106 (74-106) mg/dL Calcium 10.0 (8.4-10.2) mg/dL Total Bilirubin 0.40 (0.2-1.3) mg/dL AST 20 (17-59) U/L ALT 28 (0-50) U/L Alkaline Phosphatase 200 H (38-126) U/L Troponin I (0.000-0.034) ng/mL Serum Total Protein 8.4 H (6.3-8.2) g/dL Albumin 5.2 H (3.5-5.0) g/dL Amylase (30-110) U/L Lipase (23-300) U/L 12/31/17 12/31/17 Range/Units 04:20 04:20 WBC (4.0-10.5) K/mm3 RBC (4.1-5.6) M/mm3 Hgb (12.5-18.0) gm/dl Hct (42-50) % MCV (78-100) fl MCH (26-32) pg MCHC (32-36) g/dl RDW (11.5-14.0) % Plt Count (150-450) K/mm3 MPV (6-9.5) fl Gran % (36.0-66.0) % Eos # (Auto) (0-0.5) Absolute Lymphs (auto) (1.0-4.6) Absolute Monos (auto) (0.0-1.3) Lymphocytes % (24.0-44.0) % Monocytes % (0.0-12.0) % Eosinophils % (0.00-5.0) % Basophils % (0.0-0.4) % Absolute Granulocytes (1.4-6.9) Basophils # (0-0.4) PT (8.83-12.87) SECONDS INR (0.8-3.0) APTT (24.1-36.1) SECONDS D-Dimer (215-500) ng/mL Sodium (137-145) mmol/L Potassium (3.5-5.1) mmol/L Chloride (98-107) mmol/L Carbon Dioxide (22-30) mmol/L Anion Gap (5-15) MEQ/L BUN (9-20) mg/dL Creatinine (0.66-1.25) mg/dL Estimated GFR ML/MIN Glucose (74-106) mg/dL Calcium (8.4-10.2) mg/dL Total Bilirubin (0.2-1.3) mg/dL AST (17-59) U/L ALT (0-50) U/L Alkaline Phosphatase (38-126) U/L Troponin I < 0.012 (0.000-0.034) ng/mL Serum Total Protein (6.3-8.2) g/dL Albumin (3.5-5.0) g/dL Amylase 34 (30-110) U/L Lipase 69 (23-300) U/L - Radiology Impressions Radiology Exams & Impressions: Radiology Procedures Category Date Time Status CHEST 1 VIEW (PORTABLE) Stat Exams 12/31/17 04:29 Taken - Other Procedures and Tests Respiratory Therapy 12/31/17 08:29 Smoking Cessation Education ONCE Assessment/Plan (1) Chest pain Current Visit: Yes Status: Acute Onset Date: ~12/31/17 Qualifiers: Chest pain type: unspecified Qualified Code(s): R07.9 - Chest pain, unspecified Assessment & Plan: will r/o [place], get echo. likely related to over hyperthyroidism Code(s): R07.9 - CHEST PAIN, UNSPECIFIED (2) Hyperthyroidism Current Visit: Yes Status: Acute Onset Date: ~12/31/17 Assessment & Plan: stressed importance of compliance with medications. Code(s): E05.90 - THYROTOXICOSIS, UNSP WITHOUT THYROTOXIC CRISIS OR STORM
--- NOTE | 2017-12-31 09:02 | XRAY ---
Indication: Chest pain. Comparison: December 27, 2017. Portable chest remains hyperinflated and clear with a few incidental calcified granulomas. Heart is not enlarged. No new/acute findings.
[2017-12-31] MEDS ORDERED: MEDICATION INTERVENTION PO SCH (09:45)
[2017-12-31] MEDS ORDERED: METHIMAZOLE 20 MG PO SCH (10:00)
[2017-12-31] MEDS: Pepcid 20 MG VIAL IV SCH ×2 (11:07→22:45)
[2017-12-31] MEDS: Lopressor 50 MG PO SCH ×2 (11:07→22:45)
[2017-12-31] MEDS: Sodium Chloride 0.9% 10 ML FLUSH Syringe IV SCH ×2 (13:42→22:45)
[2018-01-01] MEDS: Sodium Chloride 0.9% 10 ML FLUSH Syringe IV SCH (05:27)
[2018-01-01 05:48] LABS: BASOPHIL % 0.2 % (0.0-0.4); Basophil (Absolute #) 0.01 (0-0.4); Eosinophil % 2.3 % (0.00-5.0); Eosinophil (Absolute #) 0.14 (0-0.5); Granulocyte Absolute (ANC) 3.24 (1.4-6.9); Granulocytes % 52.8 % (36.0-66.0); Hematocrit 40.6 % (42-50); Hemoglobin 13.2 gm/dl (12.5-18.0); Lymphocyte (Absolute #) 2.17 (1.0-4.6); Lymphocytes % 35.3 % (24.0-44.0); Mean Cell Volume 83.9 fl (78-100); Mean Corpuscular Hemoglobin 27.3 pg (26-32); Mean Corpuscular Hgb Concent. 32.5 g/dl (32-36); Mean Platelet Volume 9.8 fl (6-9.5); Monocyte (Absolute #) 0.58 (0.0-1.3); Monocytes % 9.4 % (0.0-12.0); Platelet Count 195 K/mm3 (150-450); Red Blood Count 4.84 M/mm3 (4.1-5.6); Red Cell Distribution Width 12.8 % (11.5-14.0); White Blood Count 6.1 K/mm3 (4.0-10.5)
[2018-01-01 06:29] LABS: ALKALINE PHOSPHATASE 180 U/L (38-126); ANION GAP 13.8 MEQ/L (5-15); BLOOD UREA NITROGEN 7 mg/dL (9-20); CHLORIDE 104 mmol/L (98-107); Calcium 9.8 mg/dL (8.4-10.2); Carbon Dioxide 27 mmol/L (22-30); Creatinine 1 0.35 mg/dL (0.66-1.25); Glucose 109 mg/dL (74-106); Potassium 3.8 mmol/L (3.5-5.1); SGOT/AST 19 U/L (17-59); SGPT/ALT 23 U/L (0-50); SODIUM 141 mmol/L (137-145); Total Protein 6.8 g/dL (6.3-8.2)
[2018-01-01] MEDS: Lopressor 50 MG PO SCH (08:36)
[2018-01-01] MEDS: Pepcid 20 MG VIAL IV SCH (08:36)
--- NOTE | 2018-01-01 09:04 | PCM.DS ---
Discharge Summary Date of Admission: 12/31/17 06:23 Admitting Physician: ALEXEY KATE Primary Care Provider: ALEXEY KATE Allergies Allergies No Known Drug Allergies Allergy (Verified 12/31/17 04:24) Hospital Summary - Hospital Course Hospital Course: patient was admitted with chest pain, has been to ER twice in the last few days. d-dimer was normal, troponin and ekg negative. hx hyperthyroidism and recently moved back to [facility]. admits to noncompliance with his meds. - Vitals & Intake/Output Vital Signs: Vital Signs Temperature 97.6 F 01/01/18 07:11 Pulse Rate 69 01/01/18 07:11 Respiratory Rate 16 01/01/18 07:11 Blood Pressure 120/65 01/01/18 07:11 O2 Sat by Pulse Oximetry 99 01/01/18 07:11 Intake & Output: Intake & Output 12/29/17 12/30/17 12/31/17 01/01/18 11:59 11:59 11:59 11:59 Intake Total 680 2240 Balance 680 2240 Weight 64.9 kg 64.9 kg - Lab Result Diagrams: 01/01/18 05:33 01/01/18 05:33 Lab Results-Last 24 Hrs: Lab Results-Last 24 Hours 12/31/17 12/31/17 01/01/18 Range/Units 07:40 10:41 05:33 WBC 6.1 (4.0-10.5) K/mm3 RBC 4.84 (4.1-5.6) M/mm3 Hgb 13.2 (12.5-18.0) gm/dl Hct 40.6 L (42-50) % MCV 83.9 (78-100) fl MCH 27.3 (26-32) pg MCHC 32.5 (32-36) g/dl RDW 12.8 (11.5-14.0) % Plt Count 195 (150-450) K/mm3 MPV 9.8 H (6-9.5) fl Gran % 52.8 (36.0-66.0) % Eos # (Auto) 0.14 (0-0.5) Absolute Lymphs (auto) 2.17 (1.0-4.6) Absolute Monos (auto) 0.58 (0.0-1.3) Lymphocytes % 35.3 (24.0-44.0) % Monocytes % 9.4 (0.0-12.0) % Eosinophils % 2.3 (0.00-5.0) % Basophils % 0.2 (0.0-0.4) % Absolute Granulocytes 3.24 (1.4-6.9) Basophils # 0.01 (0-0.4) Sodium (137-145) mmol/L Potassium (3.5-5.1) mmol/L Chloride (98-107) mmol/L Carbon Dioxide (22-30) mmol/L Anion Gap (5-15) MEQ/L BUN (9-20) mg/dL Creatinine (0.66-1.25) mg/dL Estimated GFR ML/MIN Glucose (74-106) mg/dL Calcium (8.4-10.2) mg/dL Total Bilirubin (0.2-1.3) mg/dL AST (17-59) U/L ALT (0-50) U/L Alkaline Phosphatase (38-126) U/L Troponin I < 0.012 < 0.012 (0.000-0.034) ng/mL Serum Total Protein (6.3-8.2) g/dL Albumin (3.5-5.0) g/dL 01/01/18 Range/Units 05:33 WBC (4.0-10.5) K/mm3 RBC (4.1-5.6) M/mm3 Hgb (12.5-18.0) gm/dl Hct (42-50) % MCV (78-100) fl MCH (26-32) pg MCHC (32-36) g/dl RDW (11.5-14.0) % Plt Count (150-450) K/mm3 MPV (6-9.5) fl Gran % (36.0-66.0) % Eos # (Auto) (0-0.5) Absolute Lymphs (auto) (1.0-4.6) Absolute Monos (auto) (0.0-1.3) Lymphocytes % (24.0-44.0) % Monocytes % (0.0-12.0) % Eosinophils % (0.00-5.0) % Basophils % (0.0-0.4) % Absolute Granulocytes (1.4-6.9) Basophils # (0-0.4) Sodium 141 (137-145) mmol/L Potassium 3.8 (3.5-5.1) mmol/L Chloride 104 (98-107) mmol/L Carbon Dioxide 27 (22-30) mmol/L Anion Gap 13.8 (5-15) MEQ/L BUN 7 L (9-20) mg/dL Creatinine 0.35 L (0.66-1.25) mg/dL Estimated GFR > 60.0 ML/MIN Glucose 109 H (74-106) mg/dL Calcium 9.8 (8.4-10.2) mg/dL Total Bilirubin 0.30 (0.2-1.3) mg/dL AST 19 (17-59) U/L ALT 23 (0-50) U/L Alkaline Phosphatase 180 H (38-126) U/L Troponin I (0.000-0.034) ng/mL Serum Total Protein 6.8 (6.3-8.2) g/dL Albumin 4.0 (3.5-5.0) g/dL - Radiology Exams Ordered Rad Exams-Entire Visit: Radiology Procedures Category Date Time Status CHEST 1 VIEW (PORTABLE) Stat Exams 12/31/17 04:29 Completed ECHO W/2D AND DOPPLER [US] Routine Exams 12/31/17 13:40 Taken - Procedures and Test Procedures and Tests throughout Hospitalization: Therapy Orders & Screens 12/31/17 08:29 Smoking Cessation Education ONCE Comment: Diagnosis: chest pain Smoking Status: Current every day smoker How long have you smoked: "5 years" Have you smoked in the past 12 months: Yes Approximately how many cigarettes per day: 15 Do you dip or chew tobacco: Yes Discharge Exam General Appearance: no apparent distress, alert, thin Neurologic Exam: alert, oriented x 3 Skin Exam: normal color Respiratory Exam: normal breath sounds, lungs clear, No respiratory distress Cardiovascular Exam: regular rate/rhythm, normal heart sounds Gastrointestinal/Abdomen Exam: soft, No tenderness, No mass Extremity Exam: normal inspection, normal range of motion Final Diagnosis/Problem List - Final Discharge Diagnosis/Problem (1) Chest pain Current Visit: Yes Status: Acute Onset Date: ~12/31/17 Assessment & Plan: PR ruled out, tachycardia resolved with beta michele. stressed compliance with methimazole and role of thyroid function in his symptoms etc (2) Hyperthyroidism Current Visit: Yes Status: Acute Onset Date: ~12/31/17 Assessment & Plan: f/u 1 month for labs - Discharge Disposition: Home, Self-Care Condition: Fair Prescriptions: Continue Methimazole [Northyx] 20 mg PO DAILY #30 tablet Metoprolol Tartrate [Lopressor] 50 mg PO BID #60 tablet Follow up with: ALEXEY KATE MD [Primary Care Provider] - 1 month
[2018-01-01 10:17] VITALS: BP 130/77; PULSE 88; O2SAT 97
== END 2018-01-01 10:18 | disposition home or self-care (01) ==
LOC: ED 04:13 → MED SURG 06:23
PROVIDERS: ADMIT Family Medicine; ATTEND Family Medicine
DX: R07.9 Chest pain, unspecified (principal); E05.90 Thyrotoxicosis, unspecified without thyrotoxic crisis or storm; Z72.0 Tobacco use; J45.909 Unspecified asthma, uncomplicated; F41.9 Anxiety disorder, unspecified; E05.00 Thyrotoxicosis with diffuse goiter without thyrotoxic crisis or storm
CPT/HCPCS: 36000; 36415; 71045; 80053; 82150; 83690; 84484; 85025; 85379; 85610; 85730; 93005; 93041; 93268; 93306; 96360; 96374; 99285; A9270-GY; G0378

== ENCOUNTER 2020-10-16 12:08 | Emergency (ER) | payer OTHER ==
[2020-10-16] MEDS ORDERED: Sodium Chloride 0.9% 1000 ML 1,000 ML IV STA (12:14)
[2020-10-16] MEDS ORDERED: Zofran 4 MG/2 ML VIAL IV ONE (12:20)
[2020-10-16] MEDS ORDERED: Sodium Chloride 0.9% 1000 ML 1,000 ML ONE (12:40)
[2020-10-16] MEDS ORDERED: Zofran 4 MG/2 ML VIAL ONE (12:40)
[2020-10-16 12:43] LABS: Absolute Neutrophil Ct (ANC) 3.72 (1.4-6.9); BASOPHIL % 0.3 % (0.0-0.4); Basophil (Absolute #) 0.02 (0-0.4); Eosinophil % 1.5 % (0.00-5.0); Eosinophil (Absolute #) 0.09 (0-0.5); Hematocrit 46.6 % (42-50); Hemoglobin 15.5 gm/dl (12.5-18.0); Lymphocyte (Absolute #) 1.89 (1.0-4.6); Lymphocytes % 30.8 % (24.0-44.0); Mean Cell Volume 88.1 fl (78-100); Mean Corpuscular Hemoglobin 29.3 pg (26-32); Mean Corpuscular Hgb Concent. 33.3 g/dl (32-36); Mean Platelet Volume 9.5 fl (7.5-11.0); Monocyte (Absolute #) 0.41 (0.0-1.3); Monocytes % 6.7 % (0.0-12.0); Neutrophil % 60.7 % (36.0-66.0); Platelet Count 238 K/mm3 (150-450); Red Blood Count 5.29 M/mm3 (4.1-5.6); Red Cell Distribution Width 12.8 % (11.5-14.0); White Blood Count 6.1 K/mm3 (4.0-10.5)
[2020-10-16 12:53] LABS: ALBUMIN 4.4 g/dL (3.5-5.0); ALKALINE PHOSPHATASE 90 U/L (38-126); ANION GAP 12.6 MEQ/L (5-15); BLOOD UREA NITROGEN 9 mg/dL (9-20); CHLORIDE 107 mmol/L (98-107); Calcium 9.4 mg/dL (8.4-10.2); Carbon Dioxide 25 mmol/L (22-30); Creatinine 1 0.56 mg/dL (0.66-1.25); EST GLOMERULAR FILTRATION RATE > 60.0 ML/MIN; Glucose 100 mg/dL (74-106); Potassium 4.1 mmol/L (3.5-5.1); SGOT/AST 22 U/L (17-59); SGPT/ALT 22 U/L (0-50); SODIUM 140 mmol/L (137-145); Total Protein 7.3 g/dL (6.3-8.2)
--- NOTE | 2020-10-16 13:03 | ERPHSYRPT ---
- History of Present Illness Time Seen by Provider: 10/16/20 12:30 Source: patient Exam Limitations: no limitations Patient Subjective Stated Complaint: vomiting diarrhea x 2 weeks Triage Nursing Assessment: pt to ED c/o NVD x 2 weeks. also reports smoking cough that is not new. rates 8/10 cramping abd pain that does not radiate. no urinary sx reported. last emesis Friday morning and last loose stool was yesterday. Physician History: Patient is a 24-year-old male presents to emergency department for evaluation of nausea vomiting and diarrhea x2 weeks. Patient experienced nausea and vomiting today. Patient is a smoker. Patient admits to history of chronic coughs. Patient is here today because of his ongoing nausea and vomiting. Patient also complaining of abdominal cramping. The cramping is generalized. No associated trauma. No fever. Symptoms are constant. Symptoms are moderate in intensity. No specific worsening improving factors. Patient states he is otherwise healthy. Patient voices no other complaints concerns at this time. Patient had that he is currently on an oral antibiotic for a chin abscess. Patient has been taking his antibiotic intermittently for approximately 1 month. The prescription was for 2 weeks. Patient does not know which antibiotic he is currently taking. Timing/Duration: week(s) (2 weeks) Severity: moderate Modifying Factors: Improves With: nothing Associated Symptoms: cough (Chronic cough), No shortness of breath, No diaphoresis, No chills, No chest pain, No fever, No headaches, No malaise, No syncope, No seizure Allergies/Adverse Reactions: No Known Drug Allergies Allergy (Verified 12/31/17 04:24) Hx Tetanus, Diphtheria Vaccination/Date Given: Yes Hx Influenza Vaccination/Date Given: No Hx Pneumococcal Vaccination/Date Given: Yes Immunizations Up to Date: Yes Travel Risk - International Travel Have you traveled outside of the country in past 3 weeks: No - Coronavirus Screening Are you exhibiting any of the following symptoms?: Yes Symptoms: Vomiting/Diarrhea Close contact with a COVID-19 positive Pt in past 14-21 Days: No - Vaccine Status Have you recieved a Covid-19 vaccination: Yes 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 - Vaccination Dates Date of 2cond Vaccination (if applicable): may - Review of Systems Constitutional: No Symptoms, No Fever, No Chills Eyes: No Symptoms Ears, Nose, & Throat: No Symptoms Respiratory: No Symptoms, No Cough, No Dyspnea Cardiac: No Symptoms, No Chest Pain, No Edema, No Syncope Abdominal/Gastrointestinal: No Symptoms, No Abdominal Pain, No Nausea, No Vomiting, No Diarrhea Genitourinary Symptoms: No Symptoms, No Dysuria Musculoskeletal: No Symptoms, No Back Pain, No Neck Pain Skin: No Symptoms, No Rash Neurological: No Symptoms, No Dizziness, No Focal Weakness, No Sensory Changes Psychological: No Symptoms Endocrine: No Symptoms Hematologic/Lymphatic: No Symptoms Immunological/Allergic: No Symptoms All Other Systems: Reviewed and Negative - Past Medical History Pertinent Past Medical History: Yes Neurological History: No Pertinent History ENT History: No Pertinent History Cardiac History: Arrhythmia Respiratory History: Asthma Endocrine Medical History: Hyperthyroidism, Other Musculoskeletal History: No Pertinent History GI Medical History: No Pertinent History History: No Pertinent History Psycho-Social History: Anxiety, Panic Disorder Male Reproductive Disorders: No Pertinent History Other Medical History: TACHYCARDIA. GRAVES DISEASE - Past Surgical History Past Surgical History: Yes Neuro Surgical History: No Pertinent History Cardiac: No Pertinent History Respiratory: No Pertinent History Gastrointestinal: No Pertinent History Genitourinary: No Pertinent History Musculoskeletal: No Pertinent History Male Surgical History: No Pertinent History Other Surgical History: TONSILS - Social History Smoking Status: Current every day smoker How long have you smoked: "5 years" Exposure to second hand smoke: Yes Drug Use: none Patient Lives Alone: No - Nursing Vital Signs Nursing Vital Signs: Initial Vital Signs Temperature 98.0 F 10/16/20 12:21 Pulse Rate 71 10/16/20 12:21 Respiratory Rate 16 10/16/20 12:21 Blood Pressure 133/67 10/16/20 12:21 O2 Sat by Pulse Oximetry 98 10/16/20 12:21 Pain Scale Pain Intensity 0 - Physical Exam General Appearance: no apparent distress, alert Eye Exam: PERRL/EOMI, eyes nml inspection Ears, Nose, Throat Exam: normal ENT inspection, TMs normal, pharynx normal, moist mucous membranes Neck Exam: normal inspection, non-tender, supple, full range of motion Respiratory Exam: normal breath sounds, lungs clear, No respiratory distress Cardiovascular Exam: regular rate/rhythm, normal heart sounds, normal peripheral pulses Gastrointestinal/Abdomen Exam: soft, normal bowel sounds, No tenderness, No mass Back Exam: normal inspection, normal range of motion, No CVA tenderness, No vertebral tenderness Extremity Exam: normal inspection, normal range of motion, pelvis stable Neurologic Exam: alert, oriented x 3, cooperative, normal mood/affect, nml cerebellar function, nml station & gait, sensation nml, No motor deficits Skin Exam: normal color, warm, dry, No rash Lymphatic Exam: No adenopathy SpO2 Interpretation: normal SpO2: 98 O2 Delivery: Room Air - Course Nursing assessment & vital signs reviewed: Yes - CT Exams Abdomen/Pelvis CT Interpretation: Tele-radiologist Report (The spleen is slightly enlarged measuring 14.2 cm in greatest caudocranial dimension on coronal image #80. This appears to be unchanged. No other acute intra-abdominal or pelvic processes seen. A few shotty periaortic lymph nodes are again seen representing no change from the prior CT dated ) Ordered Tests: Active Orders 24 hr Category Date Time Status IV Insertion STAT Care 10/16/20 12:14 Active Pulse Oximetry (ED) STAT Care 10/16/20 12:14 Active ABDOMEN AND PELVIS W CONTRAST [CT] Stat Exams 10/16/20 12:54 Completed CBC W DIFF Stat Lab 10/16/20 12:25 Completed CMP Stat Lab 10/16/20 12:25 Completed INFLUENZA A+B FEROZ Stat Lab 10/16/20 12:50 Completed LIPASE Stat Lab 10/16/20 12:25 Completed Lactic Acid Stat Lab 10/16/20 12:35 Completed UA W/RFX UR CULTURE Stat Lab 10/16/20 14:30 Ordered Medication Summary Discontinued Medications Generic Name Dose Route Start Last Admin Trade Name Freq PRN Reason Stop Dose Admin Sodium Chloride 1,000 mls @ 999 mls/hr 10/16/20 12:14 10/16/20 14:25 Sodium Chloride 0.9% 1000 Ml IV 10/16/20 13:14 Infused .Q1H1M STA Infusion Sodium Chloride Confirm 10/16/20 12:40 Sodium Chloride 0.9% 1000 Ml Administered 10/16/20 12:41 Dose 1,000 mls @ ud .ROUTE .STK-MED ONE Ondansetron HCl 4 mg 10/16/20 12:20 10/16/20 12:44 Zofran 4 Mg/2 Ml Vial IV 10/16/20 12:21 4 mg STAT ONE Administration Ondansetron HCl Confirm 10/16/20 12:40 Zofran 4 Mg/2 Ml Vial Administered 10/16/20 12:41 Dose 4 mg .ROUTE .STK-MED ONE Lab/Rad Data: Laboratory Result Diagrams 10/16/20 12:25 10/16/20 12:25 Laboratory Results 10/16/20 10/16/20 10/16/20 Range/Units 12:50 12:35 12:25 WBC (4.0-10.5) K/mm3 RBC (4.1-5.6) M/mm3 Hgb (12.5-18.0) gm/dl Hct (42-50) % MCV (78-100) fl MCH (26-32) pg MCHC (32-36) g/dl RDW (11.5-14.0) % Plt Count (150-450) K/mm3 MPV (7.5-11.0) fl Gran % (36.0-66.0) % Eos # (Auto) (0-0.5) Absolute Lymphs (auto) (1.0-4.6) Absolute Monos (auto) (0.0-1.3) Lymphocytes % (24.0-44.0) % Monocytes % (0.0-12.0) % Eosinophils % (0.00-5.0) % Basophils % (0.0-0.4) % Absolute Granulocytes (1.4-6.9) Basophils # (0-0.4) Sodium (137-145) mmol/L Potassium (3.5-5.1) mmol/L Chloride (98-107) mmol/L Carbon Dioxide (22-30) mmol/L Anion Gap (5-15) MEQ/L BUN (9-20) mg/dL Creatinine (0.66-1.25) mg/dL Estimated GFR ML/MIN Glucose (74-106) mg/dL Lactic Acid 0.9 (0.4-2.0) Calcium (8.4-10.2) mg/dL Total Bilirubin (0.2-1.3) mg/dL AST (17-59) U/L ALT (0-50) U/L Alkaline Phosphatase (38-126) U/L Serum Total Protein (6.3-8.2) g/dL Albumin (3.5-5.0) g/dL Lipase 35 (23-300) U/L Influenza Type A Ag NEGATIVE (NEGATIVE) Influenza Type B Ag NEGATIVE (NEGATIVE) 10/16/20 10/16/20 Range/Units 12:25 12:25 WBC 6.1 (4.0-10.5) K/mm3 RBC 5.29 (4.1-5.6) M/mm3 Hgb 15.5 (12.5-18.0) gm/dl Hct 46.6 (42-50) % MCV 88.1 (78-100) fl MCH 29.3 (26-32) pg MCHC 33.3 (32-36) g/dl RDW 12.8 (11.5-14.0) % Plt Count 238 (150-450) K/mm3 MPV 9.5 (7.5-11.0) fl Gran % 60.7 (36.0-66.0) % Eos # (Auto) 0.09 (0-0.5) Absolute Lymphs (auto) 1.89 (1.0-4.6) Absolute Monos (auto) 0.41 (0.0-1.3) Lymphocytes % 30.8 (24.0-44.0) % Monocytes % 6.7 (0.0-12.0) % Eosinophils % 1.5 (0.00-5.0) % Basophils % 0.3 (0.0-0.4) % Absolute Granulocytes 3.72 (1.4-6.9) Basophils # 0.02 (0-0.4) Sodium 140 (137-145) mmol/L Potassium 4.1 (3.5-5.1) mmol/L Chloride 107 (98-107) mmol/L Carbon Dioxide 25 (22-30) mmol/L Anion Gap 12.6 (5-15) MEQ/L BUN 9 (9-20) mg/dL Creatinine 0.56 L (0.66-1.25) mg/dL Estimated GFR > 60.0 ML/MIN Glucose 100 (74-106) mg/dL Lactic Acid (0.4-2.0) Calcium 9.4 (8.4-10.2) mg/dL Total Bilirubin 0.60 (0.2-1.3) mg/dL AST 22 (17-59) U/L ALT 22 (0-50) U/L Alkaline Phosphatase 90 (38-126) U/L Serum Total Protein 7.3 (6.3-8.2) g/dL Albumin 4.4 (3.5-5.0) g/dL Lipase (23-300) U/L Influenza Type A Ag (NEGATIVE) Influenza Type B Ag (NEGATIVE) - Departure Departure Disposition: Home Clinical Impression: Splenomegaly, Hepatomegaly, Nausea vomiting and diarrhea Condition: Stable Critical Care Time: No Referrals: ALEXEY KATE MD [Primary Care Provider] - Additional Instructions: Discharge/Care Plan JUSTIN ALVAREZ was seen on 10/16/20 in the Emergency Room. The patient was counseled regarding Diagnosis,Lab results, Imaging studies, need for follow up and when to return to the Emergency Room. Prescriptions given: Discharge Note I have spoken with the patient and/or caregivers. I have explained the patient's condition, diagnosis and treatment plan based on the information available to me at this time. I have answered the patient's and/or caregiver's questions and addressed any concerns. The patient and/or caregivers have as good understanding of the patient's diagnosis, condition and treatment plan as can be expected at this point. The vital signs have been stable. The patient's condition is stable and appropriate for discharge from the emergency department. The patient will pursue further outpatient evaluation with the primary care physician or other designated or consulting physician as outlined in the discharge instructions. The patient and/or caregivers are agreeable to this plan of care and follow-up instructions have been explained in detail. The patient and/or caregivers have received these instruction. The patient/and or caregivers are aware that any significant change in condition or worsening of symptoms shou ld prompt an immediate return to this or the closest emergency department or call 911.
[2020-10-16 13:12] LABS: INFLUENZA A NEGATIVE (NEGATIVE); INFLUENZA B NEGATIVE (NEGATIVE)
[2020-10-16 14:47] LABS: Appearance CLEAR (CLEAR); Bilirubin NEGATIVE (NEGATIVE); Blood NEGATIVE Ery/ul (0-5); Glucose NEGATIVE (NEGATIVE); Ketones NEGATIVE (NEGATIVE); Leukocyte Esterase NEGATIVE (NEGATIVE); Nitrite NEGATIVE (NEGATIVE); Protein,Urine Dip NEGATIVE (Negative); RBC 0-2 /HPF (0-2); Specific Gravity 1.033 (1.005-1.025); Urobilinogen NEGATIVE mg/dL (0-1)
[2020-10-16 15:14] VITALS: BP 118/67; PULSE 59
--- NOTE | 2020-10-16 15:19 | XRAY ---
Exam: CT of the abdomen and pelvis with IV contrast from 10/16/2020. CTDI: 5.08 mGy Comparison: CT of the abdomen and pelvis without IV contrast from 01/31/2015. Indication: 24-year-old male with diarrhea and vomiting for 2 weeks. Technique: Post-IV contrast axial images were obtained through the abdomen and pelvis during automated intravenous injection of 80 cc of Isovue-370 contrast material. Reconstructed coronal and sagittal images were created and reviewed. Findings: The visualized lung bases appear unremarkable. The transverse heart size is normal. The liver appears of unremarkable size and attenuation. No focal hepatic mass or intrahepatic biliary duct distention is seen. The gallbladder reveals a mucosal fold within the fundus. No dense calcifications are seen within the gallbladder lumen. No extrahepatic biliary duct distention is seen. The spleen appears slightly enlarged with a greatest craniocaudal dimension of 14.2 cm on coronal image #80. This is relatively similar to 01/31/2015. No focal splenic mass is seen. The pancreas reveals no focal or diffuse enlargement, pancreatic duct distention, or peripancreatic inflammatory changes. No pancreatic calcifications are seen. The adrenal glands appear normal size and configuration. The kidneys are of unremarkable size and reveal no mass, hydronephrosis, or renal calculi. Both kidneys function on delayed images. Portions of both ureters are opacified and appear unremarkable. The abdominal aorta appears of normal size. A few shotty periaortic lymph nodes are seen which I believe are unchanged from the previous study. I do not definitely see any abnormal mesenteric lymph nodes. No other pathological lymphadenopathy is seen. No free air or ventral abdominal wall hernia is seen. The bowel appears nonobstructed. A mild amount of scattered colonic stool is seen. The appendix is identified within the right lower quadrant and appears unremarkable. The urinary bladder reveals no significant abnormality. The seminal vesicles and prostate gland appear normal. No free fluid is seen within the lower pelvis. No abnormally enlarged pelvic lymph nodes are seen. The groin areas reveal only some small nonspecific lymph nodes. There appears to be a transitional vertebra at the lumbosacral junction with partial sacralization on the right representing no change. Minimal convexity of the lower lumbar spine toward the left is again seen. No acute fracture or other aggressive bone lesion is seen. Impression: 1. The spleen is slightly enlarged measuring 14.2 cm in greatest craniocaudal dimension on coronal image #80. I believe this is unchanged from 01/31/2015. 2. No other acute intra-abdominal or pelvic process is seen. A few shoddy periaortic lymph nodes are again seen representing no change from the prior CT dated 01/31/2015. No abnormal pathological lymphadenopathy is seen. 3. Stable skeletal findings, as discussed above.
[2020-10-16 15:34] VITALS: O2SAT 98
== END 2020-10-16 15:45 | disposition home or self-care (01) ==
LOC: ED 12:08
DX: R16.1 Splenomegaly, not elsewhere classified (principal); R16.0 Hepatomegaly, not elsewhere classified; R11.2 Nausea with vomiting, unspecified; R19.7 Diarrhea, unspecified
CPT/HCPCS: 36000; 36415; 74177; 80053; 81001; 83605; 83690; 85025; 87400; 94760; 96360; 96374; 99284; J2405

== ENCOUNTER → 2020-12-31 | Emergency (ER) | payer OTHER ==
[2012-03-05 21:13] VITALS: BP 104/65
== END | disposition left against medical advice (07) ==
LOC: ED 02:50
DX: Z53.9 Procedure and treatment not carried out, unspecified reason (principal)

== ENCOUNTER 2021-01-01 14:13 | Emergency (ER) | payer OTHER ==
[2021-01-01 14:27] VITALS: O2SAT 98
--- NOTE | 2021-01-01 14:48 | ERPHSYRPT ---
- History of Present Illness Time Seen by Provider: 01/01/21 14:36 Source: patient Exam Limitations: no limitations Patient Subjective Stated Complaint: Mouth pain Triage Nursing Assessment: Patient ambulated back to ED and transferred self to bed. Patient A+O X 3. Patient's skin pink, warm and dry. Patient complains of right sided mouth pain for 1 week. Patient states he was seen at [facility] in ER on Friday and was prescribed atb, but patient can't afford meds. Patient complains of pain 08/10. Decayed teeth noted on right side of mouth. Physician History: The patient is a 25-year-old male with a chief complaint of swelling to the right side of the mandible. Onset reportedly was a week or so ago. He reportedly went to [facility] this past Friday for it and was told that he needed to see a dentist because he likely had a "abscess" to one of his teeth. I suspect based on the patient's description the provider at that location may have thought he had a periapical abscess. He reported was prescribed amoxicillin and a "narcotic" but he reportedly cannot afford to fill his medications. His medications were sent to the pharmacy in [facility]. He denies fever, chills, headache, drainage from the affected site, dizziness, difficulty swallowing or difficulty breathing. The patient smokes cigarettes. He also reportedly has a history of hyperthyroidism and is supposed to be taken methimazole however he does not take this medications because he "feels fine." Timing/Duration: week(s) (1) Associated Symptoms: No nausea, No vomiting, No abdominal pain, No shortness of breath, No headaches Allergies/Adverse Reactions: No Known Drug Allergies Allergy (Verified 01/01/21 14:18) Hx Tetanus, Diphtheria Vaccination/Date Given: Yes Hx Influenza Vaccination/Date Given: No Hx Pneumococcal Vaccination/Date Given: No Immunizations Up to Date: Yes Travel Risk - International Travel Have you traveled outside of the country in past 3 weeks: No - Coronavirus Screening Are you exhibiting any of the following symptoms?: No Close contact with a COVID-19 positive Pt in past 14-21 Days: No - Vaccine Status Have you recieved a Covid-19 vaccination: Yes Watch Technician: Moderna - Vaccination Dates Date of 2cond Vaccination (if applicable): August 2020 - Review of Systems Constitutional: No Symptoms, No Fever, No Chills Eyes: No Symptoms Ears, Nose, & Throat: Other (Right sided facial swelling, specifically to the right side of the mandible) Respiratory: No Symptoms Cardiac: No No Symptoms Abdominal/Gastrointestinal: No No Symptoms - Past Medical History Pertinent Past Medical History: Yes Neurological History: No Pertinent History ENT History: No Pertinent History Cardiac History: Arrhythmia Respiratory History: Asthma Endocrine Medical History: Hyperthyroidism, Other Musculoskeletal History: No Pertinent History GI Medical History: No Pertinent History History: No Pertinent History Psycho-Social History: Anxiety, Panic Disorder Male Reproductive Disorders: No Pertinent History Other Medical History: TACHYCARDIA. GRAVES DISEASE - Past Surgical History Past Surgical History: Yes Neuro Surgical History: No Pertinent History Cardiac: No Pertinent History Respiratory: No Pertinent History Gastrointestinal: No Pertinent History Genitourinary: No Pertinent History Musculoskeletal: No Pertinent History Male Surgical History: No Pertinent History Other Surgical History: TONSILS - Social History Smoking Status: Current every day smoker How long have you smoked: years Exposure to second hand smoke: Yes Drug Use: none Patient Lives Alone: No - Nursing Vital Signs Nursing Vital Signs: Initial Vital Signs Temperature 98.4 F 01/01/21 14:21 Pulse Rate 87 01/01/21 14:21 Respiratory Rate 18 01/01/21 14:21 Blood Pressure 136/77 01/01/21 14:21 O2 Sat by Pulse Oximetry 98 01/01/21 14:21 Pain Scale Pain Intensity 9 - Physical Exam General Appearance: no apparent distress, alert Eye Exam: PERRL/EOMI, eyes nml inspection, No scleral icterus Ears, Nose, Throat Exam: pharynx normal, moist mucous membranes (Sublingual floor was supple and there was no evidence of [place], uvula was midline and there was no evidence of GI TECH), other (The patient had poor dentition with multiple missing teeth. The patient appeared to have swelling located the right side of the mandible and upon inspection of the gumline it appeared to be indurated and was tender mainly located to the lateral aspect of #32 or 31 , #32 or #31 was severely decayed), No pharyngeal erythema, No tonsillar exudate Neck Exam: normal inspection, non-tender, supple Respiratory Exam: normal breath sounds, lungs clear, airway intact, No chest tenderness, No respiratory distress, No diminished breath sounds Cardiovascular Exam: regular rate/rhythm, normal heart sounds, normal peripheral pulses, No murmur, No friction rub, No gallop Gastrointestinal/Abdomen Exam: soft Extremity Exam: normal inspection Neurologic Exam: alert, oriented x 3 Skin Exam: normal color SpO2: 98 O2 Delivery: Room Air - Progress Progress: unchanged Progress Note: 01/01/21 15:00 The patient presents with swelling located to the right side of his mandible likely secondary to periodontal disease, specifically decay and possible periapical abscess involving either #31-32 but is difficult to tell which tooth given that he was missing multiple teeth. There is no evidence of fluctuance or evidence of any bedside draining which possible in the emergency department at this point time. The patient's nurse contacted his pharmacy and had his antibiotic transferred over to the [facility] pharmacy in [place], [place]. I instructed the patient to fill his narcotic pain medicine at the pharmacy located in [place] and prescribe Peridex mouthwash for the patient to use as well until he can follow-up with a dentist for definitive management. A list of dental clinics were provided prior to discharge and I instructed him to call and establish care. ED return precautions for dental abscess in addition to deep space neck abscess were given. I do not believe he has a deep space infection at this point time. Counseled pt/family regarding: diagnosis, need for follow-up, smoking cessation - Departure Departure Disposition: Home Clinical Impression: Dental caries, Periodontal disease Condition: Stable Critical Care Time: No Referrals: JUSTIN HEBERT MD [Primary Care Provider] - Additional Instructions: Please follow-up with a dentist of your choice with the listed dentist that was provided to you upon being discharged. The nurse has called the pharmacy in [place] and has had your prescriptions transferred to the [facility] pharmacy located in [place], specifically your antibiotic. However, your narcotic pain medicine cannot be transferred and you will need to go to the pharmacy located in [facility] to have this medication filled. In the meantime, please refrain from smoking. Please take ibuprofen, specifically 400 mg, every 8 hours as needed for pain. You can purchase this medication [id number]. Please take food when taking this medication. Prescriptions: Chlorhexidine Gluconate [Peridex] 15 ml MM BID #220 ml
[2021-01-01 15:02] VITALS: BP 129/73; PULSE 82
== END 2021-01-01 15:02 | disposition home or self-care (01) ==
LOC: ED 14:13
DX: K02.9 Dental caries, unspecified (principal)
CPT/HCPCS: 99283

== ENCOUNTER 2021-02-12 23:55 | Emergency (ER) | payer OTHER ==
[2021-02-13] MEDS ORDERED: TORAdol 30 mg Injection IV ONE (00:19)
[2021-02-13] MEDS ORDERED: TORAdol 30 mg Injection ONE (00:24)
[2021-02-13 00:32] LABS: Absolute Neutrophil Ct (ANC) 4.23 (1.4-6.9); BASOPHIL % 0.1 % (0.0-0.4); Basophil (Absolute #) 0.01 (0-0.4); Eosinophil % 1.8 % (0.00-5.0); Eosinophil (Absolute #) 0.14 (0-0.5); Hematocrit 47.3 % (42-50); Hemoglobin 15.4 gm/dl (12.5-18.0); Lymphocyte (Absolute #) 2.93 (1.0-4.6); Lymphocytes % 37.1 % (24.0-44.0); Mean Cell Volume 89.6 fl (78-100); Mean Corpuscular Hemoglobin 29.2 pg (26-32); Mean Corpuscular Hgb Concent. 32.6 g/dl (32-36); Mean Platelet Volume 10.2 fl (7.5-11.0); Monocyte (Absolute #) 0.58 (0.0-1.3); Monocytes % 7.4 % (0.0-12.0); Neutrophil % 53.6 % (36.0-66.0); Platelet Count 231 K/mm3 (150-450); Red Blood Count 5.28 M/mm3 (4.1-5.6); Red Cell Distribution Width 12.3 % (11.5-14.0); White Blood Count 7.9 K/mm3 (4.0-10.5)
--- NOTE | 2021-02-13 00:34 | ERPHSYRPT ---
- History of Present Illness Historian: patient, EMS Exam Limitations: no limitations Patient Subjective Stated Complaint: my side hurts so bad Triage Nursing Assessment: pt c/o rt lower rib pain x1 week, got much worse tonight around 2100 while he was cooking. Pt denies any sob or chest pain. Pt denies any injury or fall to the area. Lungs clear, heart tones reg, abd soft with active bs x4 quad. Rt lower rib area is tender on palpation, describes it as stabbing pain. LBM this morning. Pt denies any cough except occasional smokers cough. Physician History: 25 yo wm w R inferior, anterolateral chest pain x 5days. Pt denies injury and pain worse w movement/coughing. States that cough is chronic smokers cough. He denies dyspnea/N/V/fever/coryza. Timing/Duration: other (5 days) Quality: sharpness, stabbing Location: other (R inferior, anterolateral) Chest Pain Radiation: no radiation Severity of Pain-Max: severe Severity of Pain-Current: severe Modifying Factors: Improves With: breathing, coughing, movement. Worsens With: defecating, eating Associated Symptoms: hurts to breathe, No nausea, No vomiting, No palpitations, No heartburn, No abdominal pain, No shortness of breath, No cough, No diaphoresis, No chills, No fever, No fatigue, No weakness, No swelling/lump in chest, No syncope, No rash, No headache, No dizziness, No edema, No back pain Prior Chest Pain/Cardiac Workup: no prior chest pain Nitro Today/Relief: no nitro taken today Aspirin Treatment Today: no aspirin today Allergies/Adverse Reactions: No Known Drug Allergies Allergy (Verified 02/13/21 00:10) Hx Tetanus, Diphtheria Vaccination/Date Given: Yes Hx Influenza Vaccination/Date Given: No Hx Pneumococcal Vaccination/Date Given: No Immunizations Up to Date: Yes Travel Risk - International Travel Have you traveled outside of the country in past 3 weeks: No - Coronavirus Screening Are you exhibiting any of the following symptoms?: No Close contact with a COVID-19 positive Pt in past 14-21 Days: No - Vaccine Status Have you recieved a Covid-19 vaccination: Yes Automotive Salesperson: Moderna - Vaccination Dates Date of 2cond Vaccination (if applicable): 07/15/20 - Review of Systems Constitutional: No Symptoms Eyes: No Symptoms Ears, Nose, & Throat: No Symptoms Respiratory: No Symptoms Cardiac: No Symptoms Abdominal/Gastrointestinal: No Symptoms Genitourinary Symptoms: No Symptoms Musculoskeletal: No Symptoms Skin: No Symptoms Neurological: No Symptoms Psychological: No Symptoms Endocrine: No Symptoms Hematologic/Lymphatic: No Symptoms Immunological/Allergic: No Symptoms - Past Medical History Pertinent Past Medical History: Yes Neurological History: No Pertinent History ENT History: No Pertinent History Cardiac History: Arrhythmia Respiratory History: Asthma Endocrine Medical History: Hyperthyroidism, Other Musculoskeletal History: No Pertinent History GI Medical History: No Pertinent History History: No Pertinent History Psycho-Social History: Anxiety, Depression, Panic Disorder Male Reproductive Disorders: No Pertinent History Other Medical History: TACHYCARDIA. GRAVES DISEASE. IRREGULAR HR - Past Surgical History Past Surgical History: Yes Neuro Surgical History: No Pertinent History Cardiac: No Pertinent History Respiratory: No Pertinent History Gastrointestinal: No Pertinent History Genitourinary: No Pertinent History Musculoskeletal: No Pertinent History Male Surgical History: No Pertinent History Other Surgical History: TONSILS - Social History Smoking Status: Current every day smoker How long have you smoked: 8 yrs Exposure to second hand smoke: Yes Drug Use: none Patient Lives Alone: No Significant Family History: no pertinent family hx - Nursing Vital Signs Nursing Vital Signs: Initial Vital Signs Temperature 98.5 F 02/12/21 23:57 Pulse Rate 82 02/12/21 23:57 Respiratory Rate 18 02/12/21 23:57 Blood Pressure 146/85 02/12/21 23:57 O2 Sat by Pulse Oximetry 99 02/12/21 23:57 Pain Scale Pain Intensity 4 Hypertensive - Physical Exam General Appearance: no apparent distress Eye Exam: PERRL/EOMI Ears, Nose, Throat Exam: normal ENT inspection, TMs normal, pharynx normal, moist mucous membranes Neck Exam: normal inspection, non-tender, supple, full range of motion, No meningismus, No mass, No Brudzinski, No Kernig's Respiratory Exam: normal breath sounds, chest tenderness (R inferior, anterolateral), lungs clear, airway intact, No respiratory distress Cardiovascular Exam: regular rate/rhythm, normal heart sounds, No murmur Gastrointestinal/Abdomen Exam: soft, normal bowel sounds, No tenderness Back Exam: normal inspection, normal range of motion Extremity Exam: normal inspection, normal range of motion Neurologic Exam: alert, oriented x 3, cooperative, newspaper columnist II-XII nml as tested, nor mal mood/affect, nml cerebellar function, nml station & gait, sensation nml, No motor deficits, No sensory deficit Skin Exam: normal color, warm, dry, No rash Lymphatic Exam: No adenopathy SpO2 Interpretation: normal SpO2: 99 O2 Delivery: Room Air - Course EKG Interpreted by Me: RATE (NSR/Rate65/Normal QT-QTc/Increasaed voltage/No acute ST-Twave changes) - Radiology Exams Chest X-ray Interpretation: Interpreted by me (CXR nad) - CT Exams Chest CT Interpretation: Tele-radiologist Report (CTA chest neg per telerad) Ordered Tests: Active Orders 24 hr Category Date Time Status EKG-ER Only STAT Care 02/13/21 00:20 Completed CHEST 1 VIEW (PORTABLE) Stat Exams 02/13/21 00:19 Taken CHEST WITH CONTRAST [CT] Stat Exams 02/13/21 01:17 Taken CBC W DIFF Stat Lab 02/13/21 00:25 Completed CMP Stat Lab 02/13/21 00:25 Completed D-DIMER QUANTITATIVE Stat Lab 02/13/21 00:25 Completed NT PRO BNP Stat Lab 02/13/21 00:25 Completed PROTIME WITH INR Stat Lab 02/13/21 00:25 Completed PTT Stat Lab 02/13/21 00:25 Completed TROPONIN Q3H Lab 02/13/21 00:25 Completed Medication Summary Discontinued Medications Generic Name Dose Route Start Last Admin Trade Name Felix PRN Reason Stop Dose Admin Hydrocodone Bitart/Acetaminophen 1 tab 02/13/21 03:07 02/13/21 03:12 Hydrocodone/Apap 5/325 Mg Tablet PO 02/13/21 03:08 1 tab STAT ONE Administration Hydrocodone Bitart/Acetaminophen Confirm 02/13/21 03:12 Hydrocodone/Apap 5/325 Mg Tablet Administered 02/13/21 03:13 Dose 1 tab .ROUTE .STK-MED ONE Ketorolac Tromethamine 30 mg 02/13/21 00:19 02/13/21 00:25 Ketorolac Tromethamine 30 Mg/Ml Inj IV 02/13/21 00:20 30 mg STAT ONE Administration Ketorolac Tromethamine Confirm 02/13/21 00:24 Ketorolac Tromethamine 30 Mg/Ml Inj Administered 02/13/21 00:25 Dose 30 mg .ROUTE .STK-MED ONE Lab/Rad Data: Laboratory Result Diagrams 02/13/21 00:25 02/13/21 00:25 Laboratory Results 02/13/21 02/13/21 02/13/21 Range/Units 00:25 00:25 00:25 WBC (4.0-10.5) K/mm3 RBC (4.1-5.6) M/mm3 Hgb (12.5-18.0) gm/dl Hct (42-50) % MCV (78-100) fl MCH (26-32) pg MCHC (32-36) g/dl RDW (11.5-14.0) % Plt Count (150-450) K/mm3 MPV (7.5-11.0) fl Gran % (36.0-66.0) % Eos # (Auto) (0-0.5) Absolute Lymphs (auto) (1.0-4.6) Absolute Monos (auto) (0.0-1.3) Lymphocytes % (24.0-44.0) % Monocytes % (0.0-12.0) % Eosinophils % (0.00-5.0) % Basophils % (0.0-0.4) % Absolute Granulocytes (1.4-6.9) Basophils # (0-0.4) PT 11.5 (9.4-12.5) SECONDS INR 0.97 (0.8-3.0) APTT 31.0 (25.1-36.5) SECONDS D-Dimer 222 (215-500) ng/mL Sodium 141 (137-145) mmol/L Potassium 4.1 (3.5-5.1) mmol/L Chloride 103 (98-107) mmol/L Carbon Dioxide 27 (22-30) mmol/L Anion Gap 15.1 H (5-15) MEQ/L BUN 5 L (9-20) mg/dL Creatinine 0.63 L (0.66-1.25) mg/dL Estimated GFR > 60.0 ML/MIN Glucose 95 (74-106) mg/dL Calcium 9.5 (8.4-10.2) mg/dL Total Bilirubin 0.50 (0.2-1.3) mg/dL AST 20 (17-59) U/L ALT 21 (0-50) U/L Alkaline Phosphatase 95 (38-126) U/L Troponin I < 0.012 (0.000-0.034) ng/mL NT-Pro-B Natriuret Pep 48.0 (0-450) pg/mL Serum Total Protein 7.6 (6.3-8.2) g/dL Albumin 4.9 (3.5-5.0) g/dL 02/13/21 Range/Units 00:25 WBC 7.9 (4.0-10.5) K/mm3 RBC 5.28 (4.1-5.6) M/mm3 Hgb 15.4 (12.5-18.0) gm/dl Hct 47.3 (42-50) % MCV 89.6 (78-100) fl MCH 29.2 (26-32) pg MCHC 32.6 (32-36) g/dl RDW 12.3 (11.5-14.0) % Plt Count 231 (150-450) K/mm3 MPV 10.2 (7.5-11.0) fl Gran % 53.6 (36.0-66.0) % Eos # (Auto) 0.14 (0-0.5) Absolute Lymphs (auto) 2.93 (1.0-4.6) Absolute Monos (auto) 0.58 (0.0-1.3) Lymphocytes % 37.1 (24.0-44.0) % Monocytes % 7.4 (0.0-12.0) % Eosinophils % 1.8 (0.00-5.0) % Basophils % 0.1 (0.0-0.4) % Absolute Granulocytes 4.23 (1.4-6.9) Basophils # 0.01 (0-0.4) PT (9.4-12.5) SECONDS INR (0.8-3.0) APTT (25.1-36.5) SECONDS D-Dimer (215-500) ng/mL Sodium (137-145) mmol/L Potassium (3.5-5.1) mmol/L Chloride (98-107) mmol/L Carbon Dioxide (22-30) mmol/L Anion Gap (5-15) MEQ/L BUN (9-20) mg/dL Creatinine (0.66-1.25) mg/dL Estimated GFR ML/MIN Glucose (74-106) mg/dL Calcium (8.4-10.2) mg/dL Total Bilirubin (0.2-1.3) mg/dL AST (17-59) U/L ALT (0-50) U/L Alkaline Phosphatase (38-126) U/L Troponin I (0.000-0.034) ng/mL NT-Pro-B Natriuret Pep (0-450) pg/mL Serum Total Protein (6.3-8.2) g/dL Albumin (3.5-5.0) g/dL - Progress Progress: improved Progress Note: 02/13/21 03:07 30mg IV Toradol Norco5 po x1 Counseled pt/family regarding: lab results, diagnosis, need for follow-up, rad results - Departure Departure Disposition: Home Clinical Impression: Chest pain Condition: Stable Critical Care Time: No Referrals: JUSTIN HEBERT MD [Primary Care Provider] - Follow up/PCP as directed Instructions: Chest Pain That Is Not Caused by the Heart (DC), Chest Pain (DC) Additional Instructions: Follow up with your family MD Return to ER for increasing chest pain or shortness of breath Forms: Work/School Release Form Prescriptions: Etodolac 400 mg [Lodine 400 mg] 400 mg PO BID PRN #10 tablet PRN Reason: Pain
[2021-02-13 00:48] LABS: INR 0.97 (0.8-3.0); PROTIME 11.5 SECONDS (9.4-12.5)
[2021-02-13 00:51] LABS: ALBUMIN 4.9 g/dL (3.5-5.0); ALKALINE PHOSPHATASE 95 U/L (38-126); ANION GAP 15.1 MEQ/L (5-15); BLOOD UREA NITROGEN 5 mg/dL (9-20); CHLORIDE 103 mmol/L (98-107); Calcium 9.5 mg/dL (8.4-10.2); Carbon Dioxide 27 mmol/L (22-30); Creatinine 1 0.63 mg/dL (0.66-1.25); EST GLOMERULAR FILTRATION RATE > 60.0 ML/MIN; Glucose 95 mg/dL (74-106); Potassium 4.1 mmol/L (3.5-5.1); SGOT/AST 20 U/L (17-59); SGPT/ALT 21 U/L (0-50); SODIUM 141 mmol/L (137-145); Total Protein 7.6 g/dL (6.3-8.2)
[2021-02-13] MEDS ORDERED: NORCO 5/325 MG PO ONE (03:07)
[2021-02-13 03:10] VITALS: BP 114/72; PULSE 64
[2021-02-13 03:11] VITALS: O2SAT 99
[2021-02-13] MEDS ORDERED: NORCO 5/325 MG ONE (03:12)
--- NOTE | 2021-02-13 09:29 | XRAY ---
Indication: Chest pain. Comparison: December 31, 2017. Portable chest again demonstrates normal heart and lungs. Bony thorax intact. No new/acute findings.
--- NOTE | 2021-02-13 09:29 | XRAY ---
Indication: Right chest pain. Multiple contiguous axial images obtained through the chest using 100 cc Isovue 370 contrast and PE protocol. Comparison: None There is good opacification of the pulmonary arteries to include the lobar and segmental branches. No pulmonary embolus. Heart is not enlarged. Aorta is normal in course and caliber. Small calcified nodes in the AP window. No pathologic mediastinal/hilar lymphadenopathy. Lungs are clear. Bony thorax intact. Limited upper abdomen including adrenal glands are unremarkable. Impression: Negative pulmonary embolus. No acute cardiopulmonary abnormalities. Comment: Preliminary interpretation made by [facility]. No critical discrepancy.
== END 2021-02-13 03:21 | disposition home or self-care (01) ==
LOC: ED 23:55
DX: R07.89 Other chest pain (principal); J41.0 Simple chronic bronchitis; Z72.0 Tobacco use
CPT/HCPCS: 36000; 36415; 71045; 71260; 80053; 83880; 84484; 85025; 85379; 85610; 85730; 93005; 96374; 99284; J1885; A9270-GY

== ENCOUNTER 2021-02-18 07:30 | Emergency (ER) | payer OTHER ==
[2021-02-18] MEDS ORDERED: Sodium Chloride 0.9% 1000 ML 1,000 ML ONE (08:02)
[2021-02-18] MEDS ORDERED: Reglan 10 MG/2 ML ONE (08:02)
[2021-02-18] MEDS ORDERED: TORAdol 30 mg Injection ONE (08:02)
[2021-02-18] MEDS ORDERED: BENADRYL 50 MG/ML ONE (08:02)
--- NOTE | 2021-02-18 08:02 | ERPHSYRPT ---
- History of Present Illness Time Seen by Provider: 02/18/21 07:59 Historian: patient Exam Limitations: other (History taking limited by rather histrionic white male) Patient Subjective Stated Complaint: Pt states that he has been having pain in his RUQ for the past week and it is radiating to the LUQ Triage Nursing Assessment: Pt brought to the ER by EMS, tachycardic, rates pain 12/10, states that the pain began in his RUQ and has moved to LUQ, denies N&V, denies fever, pt had went to [facility] and waited for an hour in the waiting room and left due to not being seen, pt denies any issues with his bowel movements, pt states that he had a couple of shots of liquour last night and that was the first time in a while, pt tender to the LUQ with palpatation Physician History: Patient is a 25-year-old white male who presents with a complaint of right upper quadrant pain for a week now radiating across the upper abdomen into the left upper quadrant he said no nausea vomiting diaphoresis or diarrhea no fever chills or sweats that he is aware of he was seen in the ER few days ago had a CT of his chest because his pain is somewhat pleuritic. Timing/Duration: week(s) (1) Activities at Onset: none Quality: cramping, stabbing Abdominal Pain Onset Location: RUQ Pain Radiation: LUQ Severity of Pain-Max: severe (According to patient) Severity of Pain-Current: mild (His pain is mild to the point where he is no longer moaning or writhing when he is on his cell phone) Previous symptoms: same symptoms as today (Pain for 1 week) Allergies/Adverse Reactions: No Known Drug Allergies Allergy (Verified 02/18/21 07:49) Hx Tetanus, Diphtheria Vaccination/Date Given: Yes Hx Influenza Vaccination/Date Given: No Hx Pneumococcal Vaccination/Date Given: No Travel Risk - International Travel Have you traveled outside of the country in past 3 weeks: No - Coronavirus Screening Are you exhibiting any of the following symptoms?: No - Vaccine Status Have you recieved a Covid-19 vaccination: Yes In Process Inspector: Moderna - Vaccination Dates Date of 2cond Vaccination (if applicable): 07/15/20 - Review of Systems Constitutional: No Fever, No Chills Eyes: No Symptoms Ears, Nose, & Throat: No Symptoms Respiratory: No Cough, No Dyspnea Cardiac: No Chest Pain, No Edema, No Syncope Abdominal/Gastrointestinal: Abdominal Pain, No Nausea, No Vomiting, No Diarrhea Genitourinary Symptoms: No Dysuria Musculoskeletal: No Back Pain, No Neck Pain Skin: No Rash Neurological: No Dizziness, No Focal Weakness, No Sensory Changes Psychological: No Symptoms Endocrine: No Symptoms All Other Systems: Reviewed and Negative - Past Medical History Pertinent Past Medical History: Yes Neurological History: No Pertinent History ENT History: No Pertinent History Cardiac History: Arrhythmia Respiratory History: Asthma Endocrine Medical History: Hyperthyroidism, Other Musculoskeletal History: No Pertinent History GI Medical History: No Pertinent History History: No Pertinent History Psycho-Social History: Anxiety, Depression, Panic Disorder Male Reproductive Disorders: No Pertinent History Other Medical History: TACHYCARDIA. GRAVES DISEASE. IRREGULAR HR - Past Surgical History Past Surgical History: Yes Neuro Surgical History: No Pertinent History Cardiac: No Pertinent History Respiratory: No Pertinent History Gastrointestinal: No Pertinent History Genitourinary: No Pertinent History Musculoskeletal: No Pertinent History Male Surgical History: No Pertinent History Other Surgical History: TONSILS - Social History Smoking Status: Current every day smoker How long have you smoked: 8 yrs Exposure to second hand smoke: Yes Drug Use: none Patient Lives Alone: No Significant Family History: no pertinent family hx - Nursing Vital Signs Nursing Vital Signs: Initial Vital Signs Temperature 97.9 F 02/18/21 07:36 Pulse Rate 114 H 02/18/21 07:36 Blood Pressure 128/80 02/18/21 07:36 O2 Sat by Pulse Oximetry 98 02/18/21 07:36 Pain Scale Pain Intensity 0 - Physical Exam General Appearance: mild distress, alert Eye Exam: PERRL/EOMI, eyes nml inspection Ears, Nose, Throat Exam: normal ENT inspection, pharynx normal, moist mucous membranes Neck Exam: normal inspection, non-tender, supple, full range of motion Respiratory Exam: normal breath sounds, lungs clear, No respiratory distress Cardiovascular Exam: regular rate/rhythm, normal heart sounds Gastrointestinal/Abdomen Exam: normal bowel sounds, tenderness, No mass, No guarding, No rebound Back Exam: normal inspection, normal range of motion, No CVA tenderness, No vertebral tenderness Extremity Exam: normal inspection, normal range of motion, pelvis stable Neurologic Exam: alert, oriented x 3, cooperative, normal mood/affect, nml cerebellar function, sensation nml, No motor deficits Skin Exam: normal color, warm, dry SpO2 Interpretation: normal SpO2: 98 O2 Delivery: Room Air - Course Nursing assessment & vital signs reviewed: Yes - Radiology Exams Chest X-ray Interpretation: Interpreted by me, Negative Ordered Tests: Active Orders 24 hr Category Date Time Status IV Insertion STAT Care 02/18/21 07:52 Active ABDOMEN AND PELVIS W CONTRAST [CT] Stat Exams 02/18/21 10:24 Taken CHEST 1 VIEW (PORTABLE) Stat Exams 02/18/21 07:53 Taken AMYLASE Stat Lab 02/18/21 08:10 Completed CBC W DIFF Stat Lab 02/18/21 08:10 Completed CMP Stat Lab 02/18/21 08:10 Completed LIPASE Stat Lab 02/18/21 08:10 Completed Lactic Acid Stat Lab 02/18/21 08:10 Completed Lactic Acid Stat Lab 02/18/21 10:42 Received PROTIME WITH INR Stat Lab 02/18/21 08:10 Completed UA W/RFX UR CULTURE Stat Lab 02/18/21 08:10 Completed Urine Triage Profile Stat Lab 02/18/21 08:10 Completed Medication Summary Discontinued Medications Generic Name Dose Route Start Last Admin Trade Name Freq PRN Reason Stop Dose Admin Diphenhydramine HCl 25 mg 02/18/21 07:52 02/18/21 08:04 Diphenhydramine Hcl 50 Mg/Ml Vial IV 02/18/21 07:53 25 mg STAT ONE Administration Diphenhydramine HCl Confirm 02/18/21 08:02 Diphenhydramine Hcl 50 Mg/Ml Vial Administered 02/18/21 08:03 Dose 50 mg .ROUTE .STK-MED ONE Sodium Chloride 1,000 mls @ 999 mls/hr 02/18/21 07:52 02/18/21 09:07 Sodium Chloride 0.9% 1000 Ml IV 02/18/21 08:52 Infused .Q1H1M STA Infusion Sodium Chloride Confirm 02/18/21 08:02 Sodium Chloride 0.9% 1000 Ml Administered 02/18/21 08:03 Dose 1,000 mls @ ud .ROUTE .STK-MED ONE Ketorolac Tromethamine 30 mg 02/18/21 07:52 02/18/21 08:04 Ketorolac Tromethamine 30 Mg/Ml Inj IV 02/18/21 07:53 30 mg STAT ONE Administration Ketorolac Tromethamine Confirm 02/18/21 08:02 Ketorolac Tromethamine 30 Mg/Ml Inj Administered 02/18/21 08:03 Dose 30 mg .ROUTE .STK-MED ONE Metoclopramide HCl 10 mg 02/18/21 07:52 02/18/21 08:04 Metoclopramide Hcl 10 Mg/2 Ml Vial IV 02/18/21 07:53 10 mg STAT ONE Administration Metoclopramide HCl Confirm 02/18/21 08:02 Metoclopramide Hcl 10 Mg/2 Ml Vial Administered 02/18/21 08:03 Dose 10 mg .ROUTE .STK-MED ONE Pantoprazole Sodium 40 mg 02/18/21 09:52 02/18/21 10:13 Pantoprazole 40 Mg Vial IV 02/18/21 09:53 40 mg STAT ONE Administration Pantoprazole Sodium Confirm 02/18/21 10:12 Pantoprazole 40 Mg Vial Administered 02/18/21 10:13 Dose 40 mg IV .STK-MED ONE Lab/Rad Data: Laboratory Result Diagrams 02/18/21 08:10 02/18/21 08:10 Laboratory Results 02/18/21 02/18/21 02/18/21 Range/Units 08:10 08:10 08:10 WBC (4.0-10.5) K/mm3 RBC (4.1-5.6) M/mm3 Hgb (12.5-18.0) gm/dl Hct (42-50) % MCV (78-100) fl MCH (26-32) pg MCHC (32-36) g/dl RDW (11.5-14.0) % Plt Count (150-450) K/mm3 MPV (7.5-11.0) fl Gran % (36.0-66.0) % Eos # (Auto) (0-0.5) Absolute Lymphs (auto) (1.0-4.6) Absolute Monos (auto) (0.0-1.3) Lymphocytes % (24.0-44.0) % Monocytes % (0.0-12.0) % Eosinophils % (0.00-5.0) % Basophils % (0.0-0.4) % Absolute Granulocytes (1.4-6.9) Basophils # (0-0.4) PT 13.6 H (9.4-12.5) SECONDS INR 1.15 (0.8-3.0) Sodium (137-145) mmol/L Potassium (3.5-5.1) mmol/L Chloride (98-107) mmol/L Carbon Dioxide (22-30) mmol/L Anion Gap (5-15) MEQ/L BUN (9-20) mg/dL Creatinine (0.66-1.25) mg/dL Estimated GFR ML/MIN Glucose (74-106) mg/dL Lactic Acid (0.4-2.0) Calcium (8.4-10.2) mg/dL Total Bilirubin (0.2-1.3) mg/dL AST (17-59) U/L ALT (0-50) U/L Alkaline Phosphatase (38-126) U/L Serum Total Protein (6.3-8.2) g/dL Albumin (3.5-5.0) g/dL Amylase (30-110) U/L Lipase (23-300) U/L Urine Color STRAW (YELLOW) Urine Appearance CLEAR (CLEAR) Urine pH 6.0 (5-6) Ur Specific [place] 1.004 (1.005-1.025) Urine Protein NEGATIVE (Negative) Urine Ketones NEGATIVE (NEGATIVE) Urine Blood SMALL (0-5) Heriberto/ul Urine Nitrite NEGATIVE (NEGATIVE) Urine Bilirubin NEGATIVE (NEGATIVE) Urine Urobilinogen NEGATIVE (0-1) mg/dL Ur Leukocyte Esterase NEGATIVE (NEGATIVE) Urine WBC (Auto) NONE (0-5) /HPF Urine RBC (Auto) NONE (0-2) /HPF U Epithel Cells (Auto) NONE (FEW) /HPF Urine Bacteria (Auto) NONE (NEGATIVE) /HPF Urine Culture Reflexed NO (NO) Urine Glucose NEGATIVE (NEGATIVE) mg/dL Urine Opiates Level POSITIVE (NEGATIVE) Ur Methadone NEGATIVE (NEGATIVE) Urine Barbiturates NEGATIVE (NEGATIVE) Ur Phencyclidine (PCP) NEGATIVE (NEGATIVE) Urine Amphetamine NEGATIVE (NEGATIVE) U Benzodiazepine Level NEGATIVE (NEGATIVE) Urine Cocaine NEGATIVE (NEGATIVE) Urine Marijuana (THC) NEGATIVE (NEGATIVE) 02/18/21 02/18/21 02/18/21 Range/Units 08:10 08:10 08:10 WBC 10.3 (4.0-10.5) K/mm3 RBC 5.28 (4.1-5.6) M/mm3 Hgb 15.6 (12.5-18.0) gm/dl Hct 46.5 (42-50) % MCV 88.1 (78-100) fl MCH 29.5 (26-32) pg MCHC 33.5 (32-36) g/dl RDW 12.6 (11.5-14.0) % Plt Count 240 (150-450) K/mm3 MPV 9.2 (7.5-11.0) fl Gran % 67.1 H (36.0-66.0) % Eos # (Auto) 0.07 (0-0.5) Absolute Lymphs (auto) 2.59 (1.0-4.6) Absolute Monos (auto) 0.71 (0.0-1.3) Lymphocytes % 25.1 (24.0-44.0) % Monocytes % 6.9 (0.0-12.0) % Eosinophils % 0.7 (0.00-5.0) % Basophils % 0.2 (0.0-0.4) % Absolute Granulocytes 6.91 H (1.4-6.9) Basophils # 0.02 (0-0.4) PT (9.4-12.5) SECONDS INR (0.8-3.0) Sodium 143 (137-145) mmol/L Potassium 3.4 L (3.5-5.1) mmol/L Chloride 107 (98-107) mmol/L Carbon Dioxide 26 (22-30) mmol/L Anion Gap 14.2 (5-15) MEQ/L BUN 4 L (9-20) mg/dL Creatinine 0.53 L (0.66-1.25) mg/dL Estimated GFR > 60.0 ML/MIN Glucose 97 (74-106) mg/dL Lactic Acid 1.9 (0.4-2.0) Calcium 9.3 (8.4-10.2) mg/dL Total Bilirubin 0.30 (0.2-1.3) mg/dL AST 23 (17-59) U/L ALT 23 (0-50) U/L Alkaline Phosphatase 83 (38-126) U/L Serum Total Protein 7.4 (6.3-8.2) g/dL Albumin 4.8 (3.5-5.0) g/dL Amylase < 30 L (30-110) U/L Lipase 56 (23-300) U/L Urine Color (YELLOW) Urine Appearance (CLEAR) Urine pH (5-6) Ur Specific [place] (1.005-1.025) Urine Protein (Negative) Urine Ketones (NEGATIVE) Urine Blood (0-5) Heriberto/ul Urine Nitrite (NEGATIVE) Urine Bilirubin (NEGATIVE) Urine Urobilinogen (0-1) mg/dL Ur Leukocyte Esterase (NEGATIVE) Urine WBC (Auto) (0-5) /HPF Urine RBC (Auto) (0-2) /HPF U Epithel Cells (Auto) (FEW) /HPF Urine Bacteria (Auto) (NEGATIVE) /HPF Urine Culture Reflexed (NO) Urine Glucose (NEGATIVE) mg/dL Urine Opiates Level (NEGATIVE) Ur Methadone (NEGATIVE) Urine Barbiturates (NEGATIVE) Ur Phencyclidine (PCP) (NEGATIVE) Urine Amphetamine (NEGATIVE) U Benzodiazepine Level (NEGATIVE) Urine Cocaine (NEGATIVE) Urine Marijuana (THC) (NEGATIVE) - Progress Progress: improved - Departure Departure Disposition: Home Clinical Impression: Peptic ulcer disease Condition: Stable Critical Care Time: No Referrals: JUSTIN HEBERT MD [Primary Care Provider] - Follow up/PCP as directed Instructions: Peptic Ulcers (DC) Prescriptions: PANTOPRAZOLE 40 mg Tablet [Protonix 40MG Tablet] 40 mg PO QAM 30 Days #30 tab Tramadol HCl 50 mg [Ultram 50 mg] 50 mg PO Q6H 3 Days #12 tablet
[2021-02-18] MEDS: Sodium Chloride 0.9% 1000 ML 1,000 ML IV STA (08:03)
[2021-02-18] MEDS: BENADRYL 50 MG/ML IV ONE (08:04)
[2021-02-18] MEDS: Reglan 10 MG/2 ML IV ONE (08:04)
[2021-02-18] MEDS: TORAdol 30 mg Injection IV ONE (08:04)
[2021-02-18 08:24] LABS: Absolute Neutrophil Ct (ANC) 6.91 (1.4-6.9); BASOPHIL % 0.2 % (0.0-0.4); Basophil (Absolute #) 0.02 (0-0.4); Eosinophil % 0.7 % (0.00-5.0); Eosinophil (Absolute #) 0.07 (0-0.5); Hematocrit 46.5 % (42-50); Hemoglobin 15.6 gm/dl (12.5-18.0); Lymphocyte (Absolute #) 2.59 (1.0-4.6); Lymphocytes % 25.1 % (24.0-44.0); Mean Cell Volume 88.1 fl (78-100); Mean Corpuscular Hemoglobin 29.5 pg (26-32); Mean Corpuscular Hgb Concent. 33.5 g/dl (32-36); Mean Platelet Volume 9.2 fl (7.5-11.0); Monocyte (Absolute #) 0.71 (0.0-1.3); Monocytes % 6.9 % (0.0-12.0); Neutrophil % 67.1 % (36.0-66.0); Platelet Count 240 K/mm3 (150-450); Red Blood Count 5.28 M/mm3 (4.1-5.6); Red Cell Distribution Width 12.6 % (11.5-14.0); White Blood Count 10.3 K/mm3 (4.0-10.5)
[2021-02-18 08:29] LABS: Appearance CLEAR (CLEAR); Bilirubin NEGATIVE (NEGATIVE); Blood SMALL Ery/ul (0-5); Glucose NEGATIVE (NEGATIVE); Ketones NEGATIVE (NEGATIVE); Leukocyte Esterase NEGATIVE (NEGATIVE); Nitrite NEGATIVE (NEGATIVE); Protein,Urine Dip NEGATIVE (Negative); Specific Gravity 1.004 (1.005-1.025); Urobilinogen NEGATIVE mg/dL (0-1)
[2021-02-18 08:42] LABS: INR 1.15 (0.8-3.0); PROTIME 13.6 SECONDS (9.4-12.5)
[2021-02-18 08:43] LABS: Amphetamine,Urine NEGATIVE (NEGATIVE); Barbiturate,Urine NEGATIVE (NEGATIVE); Benzodiazepine,Urine NEGATIVE (NEGATIVE); Cocaine,Urine NEGATIVE (NEGATIVE); Methadone,Urine NEGATIVE (NEGATIVE); Opiate,Urine POSITIVE (NEGATIVE); PCP,Urine NEGATIVE (NEGATIVE); THC,Urine NEGATIVE (NEGATIVE)
[2021-02-18 08:48] LABS: ALBUMIN 4.8 g/dL (3.5-5.0); ALKALINE PHOSPHATASE 83 U/L (38-126); AMYLASE < 30 U/L (30-110); ANION GAP 14.2 MEQ/L (5-15); BLOOD UREA NITROGEN 4 mg/dL (9-20); CHLORIDE 107 mmol/L (98-107); Calcium 9.3 mg/dL (8.4-10.2); Carbon Dioxide 26 mmol/L (22-30); Creatinine 1 0.53 mg/dL (0.66-1.25); EST GLOMERULAR FILTRATION RATE > 60.0 ML/MIN; Glucose 97 mg/dL (74-106); LIPASE 56 U/L (23-300); Potassium 3.4 mmol/L (3.5-5.1); SGOT/AST 23 U/L (17-59); SGPT/ALT 23 U/L (0-50); SODIUM 143 mmol/L (137-145); Total Protein 7.4 g/dL (6.3-8.2)
[2021-02-18] MEDS ORDERED: PROTONIX 40 MG IV IV ONE (10:12)
[2021-02-18] MEDS: PROTONIX 40 MG IV IV ONE (10:13)
[2021-02-18 11:14] VITALS: BP 104/60; PULSE 89; O2SAT 98
--- NOTE | 2021-02-18 19:04 | XRAY ---
Indication: Abdomen pain 1.5 weeks. Multiple contiguous axial images obtained through the abdomen and pelvis using 80 cc Isovue 370 contrast. Comparison: October 16, 2020. Lung bases remain clear. Heart not enlarged. Noncontrasted stomach and bowel loops nonobstructed. Normal appendix. No free fluid/air. Remaining liver, gallbladder, pancreas, spleen, adrenal glands, kidneys, ureters, bladder, and aorta appear unremarkable. No pathologic retroperitoneal lymphadenopathy. Osseous structures intact. Impression: Continued negative CT abdomen/pelvis with contrast exam. Comment: Preliminary interpretation made by [facility]. No critical discrepancy.
--- NOTE | 2021-02-18 19:05 | XRAY ---
Indication: Chest pain. Comparison: February 13, 2021. Portable chest remains hyperinflated and clear. Heart not enlarged. Bony thorax intact. No new/acute findings.
== END 2021-02-18 11:30 | disposition home or self-care (01) ==
LOC: ED 07:30
DX: K30 Functional dyspepsia (principal); Z72.0 Tobacco use; Z79.891 Long term (current) use of opiate analgesic
CPT/HCPCS: 36415; 71045; 74177; 80053; 80307; 81001; 82150; 83605; 83690; 85025; 85610; 96360; 96374; 96375; 99284; J1200; J1885

== ENCOUNTER 2021-02-19 12:12 | Emergency (ER) | payer OTHER ==
--- NOTE | 2021-02-19 13:14 | ERPHSYRPT ---
- History of Present Illness Historian: patient Exam Limitations: other (Poor historian) Patient Subjective Stated Complaint: Pt states "I was here yesterday for the same thing. It all started with pain in my right upper abdomen that moved to the left, now it is in my back and my side is swollen." Triage Nursing Assessment: Pt presented alert and oriented X 3, skin pwd Pt ambulates with an upright steady gait, able to speak in clear full sentences. Pt in no apparent respiratory distress. Pt stated that they have done the ct and the labs and found nothing, he wants an ultrasound." Physician History: 25 yo wm seen on 02/18 and 02/12 for abdominal pain presents w the same RUQ pain which he rates a 10. He denies chest pain/dyspnea/fever but does have a mild cough. CT ab-pelvis w contrast neg 02/18 and CTA of chest neg on 02/13. Timing/Duration: other (Since 02/12/21) Quality: sharpness Abdominal Pain Onset Location: RUQ Severity of Pain-Max: severe Severity of Pain-Current: severe Modifying Factors: Improves With: nothing, movement Associated Symptoms: No back, No chest pain, No diaphoresis, No diarrhea, No fever/chills, No fatigue, No headache, No heartburn, No loss of appetite, No nausea, No neck pain, No rash, No shortness of breath, No syncope, No testicular pain, No vomiting, No weakness Previous symptoms: same symptoms as today Allergies/Adverse Reactions: No Known Drug Allergies Allergy (Verified 02/18/21 07:49) Hx Tetanus, Diphtheria Vaccination/Date Given: Yes Hx Influenza Vaccination/Date Given: No Hx Pneumococcal Vaccination/Date Given: No Immunizations Up to Date: Yes Travel Risk - International Travel Have you traveled outside of the country in past 3 weeks: No - Coronavirus Screening Are you exhibiting any of the following symptoms?: No Close contact with a COVID-19 positive Pt in past 14-21 Days: No - Vaccine Status Have you recieved a Covid-19 vaccination: Yes [employer]ner: Moderna - Vaccination Dates Date of 2cond Vaccination (if applicable): 07/15/20 - Review of Systems Constitutional: No Symptoms Eyes: No Symptoms Ears, Nose, & Throat: No Symptoms Respiratory: No Symptoms, Cough Cardiac: No Symptoms Abdominal/Gastrointestinal: No Symptoms, Abdominal Pain Genitourinary Symptoms: No Symptoms Musculoskeletal: No Symptoms Skin: No Symptoms Neurological: No Symptoms Psychological: No Symptoms Endocrine: No Symptoms Hematologic/Lymphatic: No Symptoms Immunological/Allergic: No Symptoms - Past Medical History Pertinent Past Medical History: Yes Neurological History: No Pertinent History ENT History: No Pertinent History Cardiac History: Arrhythmia Respiratory History: Asthma Endocrine Medical History: Hyperthyroidism, Other Musculoskeletal History: No Pertinent History GI Medical History: No Pertinent History History: No Pertinent History Psycho-Social History: Anxiety, Depression, Panic Disorder Male Reproductive Disorders: No Pertinent History Other Medical History: TACHYCARDIA. GRAVES DISEASE. IRREGULAR HR - Past Surgical History Past Surgical History: Yes Neuro Surgical History: No Pertinent History Cardiac: No Pertinent History Respiratory: No Pertinent History Gastrointestinal: No Pertinent History Genitourinary: No Pertinent History Musculoskeletal: No Pertinent History Male Surgical History: No Pertinent History Other Surgical History: TONSILS - Social History Smoking Status: Current every day smoker How long have you smoked: 8 yrs Exposure to second hand smoke: Yes Drug Use: none Patient Lives Alone: No Significant Family History: no pertinent family hx - Nursing Vital Signs Nursing Vital Signs: Initial Vital Signs Temperature 98.3 F 02/19/21 12:13 Pulse Rate 101 H 02/19/21 12:13 Respiratory Rate 24 02/19/21 12:13 Blood Pressure 152/102 02/19/21 12:13 O2 Sat by Pulse Oximetry 98 02/19/21 12:13 Pain Scale Pain Intensity 10 Hypertensive/tachy - Physical Exam General Appearance: no apparent distress, anxiety Eye Exam: PERRL/EOMI, eyes nml inspection Ears, Nose, Throat Exam: normal ENT inspection, TMs normal, pharynx normal, moist mucous membranes Neck Exam: normal inspection, non-tender, supple, full range of motion, No meningismus, No mass, No Brudzinski, No Kernig's Respiratory Exam: normal breath sounds, chest tenderness (Mild R anterior- inferior ttp), lungs clear, airway intact, No respiratory distress Cardiovascular Exam: tachycardia Gastrointestinal/Abdomen Exam: soft, normal bowel sounds, No tenderness Back Exam: normal inspection, normal range of motion, No CVA tenderness Extremity Exam: normal inspection, normal range of motion Neurologic Exam: alert, oriented x 3, cooperative, bridge leverman II-XII nml as tested, normal mood/affect, nml cerebellar function, nml station & gait, sensation nml, No motor deficits, No sensory deficit Skin Exam: normal color, warm, dry, No jaundice SpO2 Interpretation: normal SpO2: 98 O2 Delivery: Room Air - Course Nursing assessment & vital signs reviewed: Yes Ordered Tests: Active Orders 24 hr Category Date Time Status CBC W DIFF Stat Lab 02/19/21 12:50 Completed CMP Stat Lab 02/19/21 12:50 Completed D-DIMER QUANTITATIVE Stat Lab 02/19/21 12:50 Completed TROPONIN Q3H Lab 02/19/21 12:50 Completed UA W/RFX UR CULTURE Stat Lab 02/19/21 13:23 Completed Urine Triage Profile Stat Lab 02/19/21 13:47 Completed Medication Summary Discontinued Medications Generic Name Dose Route Start Last Admin Trade Name Freq PRN Reason Stop Dose Admin Ketorolac Tromethamine 30 mg 02/19/21 14:14 02/19/21 14:25 Ketorolac Tromethamine 30 Mg/Ml Inj IM 02/19/21 14:15 30 mg STAT ONE Administration Ketorolac Tromethamine Confirm 02/19/21 14:23 Ketorolac Tromethamine 30 Mg/Ml Inj Administered 02/19/21 14:24 Dose 30 mg .ROUTE .NitroSell ONE Lab/Rad Data: Laboratory Result Diagrams 02/19/21 12:50 02/19/21 12:50 Laboratory Results 02/19/21 02/19/21 02/19/21 Range/Units 13:47 13:23 12:50 WBC (4.0-10.5) K/mm3 RBC (4.1-5.6) M/mm3 Hgb (12.5-18.0) gm/dl Hct (42-50) % MCV (78-100) fl MCH (26-32) pg MCHC (32-36) g/dl RDW (11.5-14.0) % Plt Count (150-450) K/mm3 MPV (7.5-11.0) fl Gran % (36.0-66.0) % Eos # (Auto) (0-0.5) Absolute Lymphs (auto) (1.0-4.6) Absolute Monos (auto) (0.0-1.3) Lymphocytes % (24.0-44.0) % Monocytes % (0.0-12.0) % Eosinophils % (0.00-5.0) % Basophils % (0.0-0.4) % Absolute Granulocytes (1.4-6.9) Basophils # (0-0.4) D-Dimer < 215 L (215-500) ng/mL Sodium (137-145) mmol/L Potassium (3.5-5.1) mmol/L Chloride (98-107) mmol/L Carbon Dioxide (22-30) mmol/L Anion Gap (5-15) MEQ/L BUN (9-20) mg/dL Creatinine (0.66-1.25) mg/dL Estimated GFR ML/MIN Glucose (74-106) mg/dL Calcium (8.4-10.2) mg/dL Total Bilirubin (0.2-1.3) mg/dL AST (17-59) U/L ALT (0-50) U/L Alkaline Phosphatase (38-126) U/L Troponin I (0.000-0.034) ng/mL Serum Total Protein (6.3-8.2) g/dL Albumin (3.5-5.0) g/dL Urine Color YELLOW (YELLOW) Urine Appearance CLEAR (CLEAR) Urine pH 9.0 (5-6) Ur Specific [place] 1.013 (1.005-1.025) Urine Protein NEGATIVE (Negative) Urine Ketones NEGATIVE (NEGATIVE) Urine Blood NEGATIVE (0-5) Heriberto/ul Urine Nitrite NEGATIVE (NEGATIVE) Urine Bilirubin NEGATIVE (NEGATIVE) Urine Urobilinogen NEGATIVE (0-1) mg/dL Ur Leukocyte Esterase NEGATIVE (NEGATIVE) Urine WBC (Auto) NONE (0-5) /HPF Urine RBC (Auto) 0-2 (0-2) /HPF U Epithel Cells (Auto) NONE (FEW) /HPF Urine Bacteria (Auto) NONE (NEGATIVE) /HPF Urine Mucus (Auto) SLIGHT (NEGATIVE) /HPF Urine Culture Reflexed NO (NO) Urine Glucose NEGATIVE (NEGATIVE) mg/dL Urine Opiates Level NEGATIVE (NEGATIVE) Ur Methadone NEGATIVE (NEGATIVE) Urine Barbiturates NEGATIVE (NEGATIVE) Ur Phencyclidine (PCP) NEGATIVE (NEGATIVE) Urine Amphetamine NEGATIVE (NEGATIVE) U Benzodiazepine Level NEGATIVE (NEGATIVE) Urine Cocaine NEGATIVE (NEGATIVE) Urine Marijuana (THC) NEGATIVE (NEGATIVE) 02/19/21 02/19/21 02/19/21 Range/Units 12:50 12:50 12:50 WBC 9.0 (4.0-10.5) K/mm3 RBC 4.89 (4.1-5.6) M/mm3 Hgb 14.4 (12.5-18.0) gm/dl Hct 43.9 (42-50) % MCV 89.8 (78-100) fl MCH 29.4 (26-32) pg MCHC 32.8 (32-36) g/dl RDW 12.5 (11.5-14.0) % Plt Count 225 (150-450) K/mm3 MPV 9.7 (7.5-11.0) fl Gran % 78.1 H (36.0-66.0) % Eos # (Auto) 0.05 (0-0.5) Absolute Lymphs (auto) 1.39 (1.0-4.6) Absolute Monos (auto) 0.51 (0.0-1.3) Lymphocytes % 15.4 L (24.0-44.0) % Monocytes % 5.7 (0.0-12.0) % Eosinophils % 0.6 (0.00-5.0) % Basophils % 0.2 (0.0-0.4) % Absolute Granulocytes 7.05 H (1.4-6.9) Basophils # 0.02 (0-0.4) D-Dimer (215-500) ng/mL Sodium 137 (137-145) mmol/L Potassium 3.8 (3.5-5.1) mmol/L Chloride 103 (98-107) mmol/L Carbon Dioxide 26 (22-30) mmol/L Anion Gap 12.2 (5-15) MEQ/L BUN 13 (9-20) mg/dL Creatinine 0.63 L (0.66-1.25) mg/dL Estimated GFR > 60.0 ML/MIN Glucose 101 (74-106) mg/dL Calcium 9.2 (8.4-10.2) mg/dL Total Bilirubin 0.40 (0.2-1.3) mg/dL AST 26 (17-59) U/L ALT 25 (0-50) U/L Alkaline Phosphatase 87 (38-126) U/L Troponin I < 0.012 (0.000-0.034) ng/mL Serum Total Protein 7.1 (6.3-8.2) g/dL Albumin 4.5 (3.5-5.0) g/dL Urine Color (YELLOW) Urine Appearance (CLEAR) Urine pH (5-6) Ur Specific [place] (1.005-1.025) Urine Protein (Negative) Urine Ketones (NEGATIVE) Urine Blood (0-5) Heriberto/ul Urine Nitrite (NEGATIVE) Urine Bilirubin (NEGATIVE) Urine Urobilinogen (0-1) mg/dL Ur Leukocyte Esterase (NEGATIVE) Urine WBC (Auto) (0-5) /HPF Urine RBC (Auto) (0-2) /HPF U Epithel Cells (Auto) (FEW) /HPF Urine Bacteria (Auto) (NEGATIVE) /HPF Urine Mucus (Auto) (NEGATIVE) /HPF Urine Culture Reflexed (NO) Urine Glucose (NEGATIVE) mg/dL Urine Opiates Level (NEGATIVE) Ur Methadone (NEGATIVE) Urine Barbiturates (NEGATIVE) Ur Phencyclidine (PCP) (NEGATIVE) Urine Amphetamine (NEGATIVE) U Benzodiazepine Level (NEGATIVE) Urine Cocaine (NEGATIVE) Urine Marijuana (THC) (NEGATIVE) - Progress Progress Note: 02/19/21 14:15 Unable to obtain gallbladder US since pt actively drinking [employer] NRG drink 30mg IM Toradol Counseled pt/family regarding: lab results, diagnosis, need for follow-up - Departure Departure Disposition: Home Clinical Impression: Thoracic back pain Condition: Stable Critical Care Time: No Referrals: JUSTIN HEBERT MD [Primary Care Provider] - Follow up/PCP as directed Instructions: Upper Back Pain (DC) Additional Instructions: Follow up with your family MD in 1-2 days Return to ER for increasing pain or shortness of breath Forms: Work/School Release Form
[2021-02-19 13:17] LABS: Absolute Neutrophil Ct (ANC) 7.05 (1.4-6.9); BASOPHIL % 0.2 % (0.0-0.4); Basophil (Absolute #) 0.02 (0-0.4); Eosinophil % 0.6 % (0.00-5.0); Eosinophil (Absolute #) 0.05 (0-0.5); Hematocrit 43.9 % (42-50); Hemoglobin 14.4 gm/dl (12.5-18.0); Lymphocyte (Absolute #) 1.39 (1.0-4.6); Lymphocytes % 15.4 % (24.0-44.0); Mean Cell Volume 89.8 fl (78-100); Mean Corpuscular Hemoglobin 29.4 pg (26-32); Mean Corpuscular Hgb Concent. 32.8 g/dl (32-36); Mean Platelet Volume 9.7 fl (7.5-11.0); Monocyte (Absolute #) 0.51 (0.0-1.3); Monocytes % 5.7 % (0.0-12.0); Neutrophil % 78.1 % (36.0-66.0); Platelet Count 225 K/mm3 (150-450); Red Blood Count 4.89 M/mm3 (4.1-5.6); Red Cell Distribution Width 12.5 % (11.5-14.0)
[2021-02-19 13:20] VITALS: O2SAT 98
[2021-02-19 13:29] LABS: ALBUMIN 4.5 g/dL (3.5-5.0); ALKALINE PHOSPHATASE 87 U/L (38-126); ANION GAP 12.2 MEQ/L (5-15); BLOOD UREA NITROGEN 13 mg/dL (9-20); CHLORIDE 103 mmol/L (98-107); Calcium 9.2 mg/dL (8.4-10.2); Carbon Dioxide 26 mmol/L (22-30); Creatinine 1 0.63 mg/dL (0.66-1.25); EST GLOMERULAR FILTRATION RATE > 60.0 ML/MIN; Glucose 101 mg/dL (74-106); Potassium 3.8 mmol/L (3.5-5.1); SGOT/AST 26 U/L (17-59); SGPT/ALT 25 U/L (0-50); SODIUM 137 mmol/L (137-145); Total Protein 7.1 g/dL (6.3-8.2)
[2021-02-19 13:38] LABS: Appearance CLEAR (CLEAR); Bilirubin NEGATIVE (NEGATIVE); Blood NEGATIVE Ery/ul (0-5); Glucose NEGATIVE (NEGATIVE); Ketones NEGATIVE (NEGATIVE); Leukocyte Esterase NEGATIVE (NEGATIVE); Mucus SLIGHT /HPF (NEGATIVE); Nitrite NEGATIVE (NEGATIVE); Protein,Urine Dip NEGATIVE (Negative); RBC 0-2 /HPF (0-2); Specific Gravity 1.013 (1.005-1.025); Urobilinogen NEGATIVE mg/dL (0-1)
[2021-02-19 13:48] LABS: Amphetamine,Urine NEGATIVE (NEGATIVE); Barbiturate,Urine NEGATIVE (NEGATIVE); Benzodiazepine,Urine NEGATIVE (NEGATIVE); Cocaine,Urine NEGATIVE (NEGATIVE); Methadone,Urine NEGATIVE (NEGATIVE); Opiate,Urine NEGATIVE (NEGATIVE); PCP,Urine NEGATIVE (NEGATIVE); THC,Urine NEGATIVE (NEGATIVE)
[2021-02-19 14:11] VITALS: BP 118/61; PULSE 85
[2021-02-19] MEDS ORDERED: TORAdol 30 mg Injection IM ONE (14:14)
[2021-02-19] MEDS ORDERED: TORAdol 30 mg Injection ONE (14:23)
== END 2021-02-19 14:29 | disposition home or self-care (01) ==
LOC: ED 12:12
DX: M54.6 Pain in thoracic spine (principal); E05.90 Thyrotoxicosis, unspecified without thyrotoxic crisis or storm; E05.00 Thyrotoxicosis with diffuse goiter without thyrotoxic crisis or storm; Z72.0 Tobacco use; R00.0 Tachycardia, unspecified
CPT/HCPCS: 36415; 80053; 80307; 81001; 84484; 85025; 85379; 96372; 99284; J1885

== ENCOUNTER 2021-04-01 00:39 | Emergency (ER) | payer OTHER ==
--- NOTE | 2021-04-01 01:29 | ERPHSYRPT ---
- History of Present Illness Source: patient, police Exam Limitations: no limitations Patient Subjective Stated Complaint: pt states he has been drinking every day for the last 2 weeks. states he has had anywhere from a fifth a day to a half gallon of alcohol and has been drinking beer also. states he wants help before he gets any worse. denies suicidal or homicidal ideation Triage Nursing Assessment: pt awake and alert, answers questions approp. pt arrive with law enforcement, ambulates into room with steady gait noted. respirations nonlabored. pt tearful and agitated at times. skin dry and intact. pt denies pain. denies suicidal or homicidal ideation. Hx Tetanus, Diphtheria Vaccination/Date Given: Yes Hx Influenza Vaccination/Date Given: No Hx Pneumococcal Vaccination/Date Given: No Immunizations Up to Date: Yes <GILBERTO WYNN - Last Filed: 04/01/21 06:14> - History of Present Illness Timing/Duration: today Severity of Symptoms-Max: moderate Severity of Symptoms-Current: moderate Context related to: significant other Suicidal thoughts: ingestion Associated Symptoms: other (upset from breakup with girlfriend) Previous symptoms: same symptoms as today <MANDIE CHRISTINA - Last Filed: 04/01/21 11:35> - History of Present Illness Time Seen by Provider: 04/01/21 01:16 Physician History: 25 years old male with history of alcohol abuse presented in the ER with chief complaint of increasing alcohol use for the last 2 weeks which he wants to stop. Patient reports he recently had issues with his girlfriend and started drinking the last 2 weeks and drinks heavily from the fifth to half a gallon every day along with beers. His last drink was prior to arrival. Patient denies any drug use. Denies any suicidal or homicidal ideations. Wants to get help so that he does not go for any drug abuse. Reports having heavy alcohol use in the past b ut was not able to manage it at home with help of his girlfriend if she is from now and do not think would be able to do at this time at home. Denies ideas of hopelessness/helplessness. (GILBERTO WYNN) Allergies/Adverse Reactions: No Known Drug Allergies Allergy (Verified 04/01/21 01:09) Home Medications: No Reportable Medications [No Reported Medications] 04/01/21 [History] Travel Risk - International Travel Have you traveled outside of the country in past 3 weeks: No - Coronavirus Screening Are you exhibiting any of the following symptoms?: No Close contact with a COVID-19 positive Pt in past 14-21 Days: Yes - Vaccine Status Have you recieved a Covid-19 vaccination: Yes Stave Planer Tender: Moderna - Vaccination Dates Date of 2cond Vaccination (if applicable): 07/15/20 <GILBERTO WYNN - Last Filed: 04/01/21 06:14> - Past Medical History Pertinent Past Medical History: Yes Neurological History: No Pertinent History ENT History: No Pertinent History Cardiac History: Arrhythmia Respiratory History: Asthma Endocrine Medical History: Hyperthyroidism, Other Musculoskeletal History: No Pertinent History GI Medical History: No Pertinent History History: No Pertinent History Psycho-Social History: Anxiety, Depression, Panic Disorder Male Reproductive Disorders: No Pertinent History Other Medical History: TACHYCARDIA. GRAVES DISEASE. IRREGULAR HR - Past Surgical History Past Surgical History: Yes Neuro Surgical History: No Pertinent History Cardiac: No Pertinent History Respiratory: No Pertinent History Gastrointestinal: Cholecystectomy Genitourinary: No Pertinent History Musculoskeletal: No Pertinent History Male Surgical History: No Pertinent History Other Surgical History: TONSILS - Social History Smoking Status: Current every day smoker How long have you smoked: 7yrs Exposure to second hand smoke: Yes Drug Use: none Patient Lives Alone: Yes Significant Family History: no pertinent family hx <GILBERTO WYNN - Last Filed: 04/01/21 06:14> - Review of Systems Constitutional: No Symptoms Eyes: No Symptoms Ears, Nose, & Throat: No Symptoms Respiratory: No Symptoms Cardiac: No Symptoms Abdominal/Gastrointestinal: No Symptoms Genitourinary Symptoms: No Symptoms Musculoskeletal: No Symptoms Skin: No Symptoms Neurological: No Symptoms Psychological: Anxiety, Depression, Emotional Lability, No Suicidal Ideations, No Homicidal Ideations Endocrine: No Symptoms Hematologic/Lymphatic: No Symptoms Immunological/Allergic: No Symptoms <GILBERTO WYNN - Last Filed: 04/01/21 06:14> - Physical Exam General Appearance: no apparent distress, alert, anxiety Eyes, Ears, Nose, Throat Exam: normal ENT inspection, TMs normal, pharynx normal Neck Exam: normal inspection, non-tender, supple, full range of motion Respiratory Exam: normal breath sounds, lungs clear Cardiovascular Exam: normal heart sounds, tachycardia Gastrointestinal/Abdominal Exam: soft, normal bowel sounds, No tenderness Extremities Exam: normal inspection, normal range of motion Current Suicidality: denies suicide plan Neurological Exam: alert, fbi special agent II-XII nml as tested, oriented x 3, No normal mood/affect Appearance: appropriate appearance, appropriate insight, neat, no memory impa irment Behavior/Eye Contact/Speech: alert & cooperative, cooperative, good eye contact, normal speech Thoughts/Hallucinations: normal thought pattern, no apparent hallucination Skin Exam: normal color SpO2 Interpretation: normal SpO2: 98 O2 Delivery: Room Air <GILBERTO WYNN - Last Filed: 04/01/21 06:14> - Nursing Vital Signs Nursing Vital Signs: Initial Vital Signs Temperature 97.7 F 04/01/21 00:45 Pulse Rate 124 H 04/01/21 00:45 Respiratory Rate 18 04/01/21 00:45 Blood Pressure 126/100 04/01/21 00:45 O2 Sat by Pulse Oximetry 98 04/01/21 00:45 Pain Scale Pain Intensity 0 Ordered Tests: Active Orders 24 hr Category Date Time Status ACETAMINOPHEN Stat Lab 04/01/21 07:55 Completed CBC W DIFF Stat Lab 04/01/21 01:50 Completed CMP Stat Lab 04/01/21 01:50 Completed ETHYL ALCOHOL Stat Lab 04/01/21 01:50 Completed ETHYL ALCOHOL Stat Lab 04/01/21 05:12 Completed ETHYL ALCOHOL Stat Lab 04/01/21 07:55 Completed MAG [MAGNESIUM] Stat Lab 04/01/21 01:50 Completed SALICYLATE Stat Lab 04/01/21 01:50 Completed UA W/RFX UR CULTURE Stat Lab 04/01/21 01:55 Completed Urine Triage Profile Stat Lab 04/01/21 01:55 Completed Medication Summary Discontinued Medications Generic Name Dose Route Start Last Admin Trade Name Freq PRN Reason Stop Dose Admin Lorazepam 1 mg 04/01/21 01:31 04/01/21 01:56 Lorazepam 1 Mg Tablet PO 04/01/21 01:32 1 mg STAT ONE Administration Lorazepam Confirm 04/01/21 01:39 Lorazepam 1 Mg Tablet Administered 04/01/21 01:40 Dose 1 mg .ROUTE .[place]-MED ONE Lab/Rad Data: Laboratory Result Diagrams 04/01/21 01:50 04/01/21 01:50 Laboratory Results 04/01/21 04/01/21 04/01/21 Range/Units 07:55 05:12 01:55 WBC (4.0-10.5) K/mm3 RBC (4.1-5.6) M/mm3 Hgb (12.5-18.0) gm/dl Hct (42-50) % MCV (78-100) fl MCH (26-32) pg MCHC (32-36) g/dl RDW (11.5-14.0) % Plt Count (150-450) K/mm3 MPV (7.5-11.0) fl Gran % (36.0-66.0) % Eos # (Auto) (0-0.5) Absolute Lymphs (auto) (1.0-4.6) Absolute Monos (auto) (0.0-1.3) Lymphocytes % (24.0-44.0) % Monocytes % (0.0-12.0) % Eosinophils % (0.00-5.0) % Basophils % (0.0-0.4) % Absolute Granulocytes (1.4-6.9) Basophils # (0-0.4) Sodium (137-145) mmol/L Potassium (3.5-5.1) mmol/L Chloride (98-107) mmol/L Carbon Dioxide (22-30) mmol/L Anion Gap (5-15) MEQ/L BUN (9-20) mg/dL Creatinine (0.66-1.25) mg/dL Estimated GFR ML/MIN Glucose (74-106) mg/dL Calcium (8.4-10.2) mg/dL Magnesium (1.6-2.3) mg/dL Total Bilirubin (0.2-1.3) mg/dL AST (17-59) U/L ALT (0-50) U/L Alkaline Phosphatase (38-126) U/L Serum Total Protein (6.3-8.2) g/dL Albumin (3.5-5.0) g/dL Urine Color (YELLOW) Urine Appearance (CLEAR) Urine pH (5-6) Ur Specific [place] (1.005-1.025) Urine Protein (Negative) Urine Ketones (NEGATIVE) Urine Blood (0-5) Heriberto/ul Urine Nitrite (NEGATIVE) Urine Bilirubin (NEGATIVE) Urine Urobilinogen (0-1) mg/dL Ur Leukocyte Esterase (NEGATIVE) Urine WBC (Auto) (0-5) /HPF Urine RBC (Auto) (0-2) /HPF U Epithel Cells (Auto) (FEW) /HPF Urine Bacteria (Auto) (NEGATIVE) /HPF Urine Culture Reflexed (NO) Urine Glucose (NEGATIVE) mg/dL Salicylates (2-20) mg/dL Urine Opiates Level NEGATIVE (NEGATIVE) Ur Methadone NEGATIVE (NEGATIVE) Acetaminophen < 10 L (10-30) ug/ml Urine Barbiturates NEGATIVE (NEGATIVE) Ur Phencyclidine (PCP) NEGATIVE (NEGATIVE) Urine Amphetamine NEGATIVE (NEGATIVE) U Benzodiazepine Level NEGATIVE (NEGATIVE) Urine Cocaine NEGATIVE (NEGATIVE) Urine Marijuana (THC) NEGATIVE (NEGATIVE) Ethyl Alcohol 58 H 119 H (0-10) mg/dL 04/01/21 04/01/21 04/01/21 Range/Units 01:55 01:50 01:50 WBC (4.0-10.5) K/mm3 RBC (4.1-5.6) M/mm3 Hgb (12.5-18.0) gm/dl Hct (42-50) % MCV (78-100) fl MCH (26-32) pg MCHC (32-36) g/dl RDW (11.5-14.0) % Plt Count (150-450) K/mm3 MPV (7.5-11.0) fl Gran % (36.0-66.0) % Eos # (Auto) (0-0.5) Absolute Lymphs (auto) (1.0-4.6) Absolute Monos (auto) (0.0-1.3) Lymphocytes % (24.0-44.0) % Monocytes % (0.0-12.0) % Eosinophils % (0.00-5.0) % Basophils % (0.0-0.4) % Absolute Granulocytes (1.4-6.9) Basophils # (0-0.4) Sodium 143 (137-145) mmol/L Potassium 3.7 (3.5-5.1) mmol/L Chloride 103 (98-107) mmol/L Carbon Dioxide 27 (22-30) mmol/L Anion Gap 16.7 H (5-15) MEQ/L BUN < 2 L (9-20) mg/dL Creatinine 0.54 L (0.66-1.25) mg/dL Estimated GFR > 60.0 ML/MIN Glucose 102 (74-106) mg/dL Calcium 9.2 (8.4-10.2) mg/dL Magnesium 2.0 (1.6-2.3) mg/dL Total Bilirubin 0.40 (0.2-1.3) mg/dL AST 25 (17-59) U/L ALT 38 (0-50) U/L Alkaline Phosphatase 121 (38-126) U/L Serum Total Protein 7.4 (6.3-8.2) g/dL Albumin 4.8 (3.5-5.0) g/dL Urine Color STRAW (YELLOW) Urine Appearance CLEAR (CLEAR) Urine pH 8.0 (5-6) Ur Specific [place] 1.003 (1.005-1.025) Urine Protein NEGATIVE (Negative) Urine Ketones NEGATIVE (NEGATIVE) Urine Blood NEGATIVE (0-5) Heriberto/ul Urine Nitrite NEGATIVE (NEGATIVE) Urine Bilirubin NEGATIVE (NEGATIVE) Urine Urobilinogen NEGATIVE (0-1) mg/dL Ur Leukocyte Esterase NEGATIVE (NEGATIVE) Urine WBC (Auto) NONE (0-5) /HPF Urine RBC (Auto) NONE (0-2) /HPF U Epithel Cells (Auto) NONE (FEW) /HPF Urine Bacteria (Auto) NONE (NEGATIVE) /HPF Urine Culture Reflexed NO (NO) Urine Glucose NEGATIVE (NEGATIVE) mg/dL Salicylates < 1.0 L (2-20) mg/dL Urine Opiates Level (NEGATIVE) Ur Methadone (NEGATIVE) Acetaminophen (10-30) ug/ml Urine Barbiturates (NEGATIVE) Ur Phencyclidine (PCP) (NEGATIVE) Urine Amphetamine (NEGATIVE) U Benzodiazepine Level (NEGATIVE) Urine Cocaine (NEGATIVE) Urine Marijuana (THC) (NEGATIVE) Ethyl Alcohol 191 H (0-10) mg/dL 04/01/21 Range/Units 01:50 WBC 9.6 (4.0-10.5) K/mm3 RBC 5.31 (4.1-5.6) M/mm3 Hgb 15.8 (12.5-18.0) gm/dl Hct 46.8 (42-50) % MCV 88.1 (78-100) fl MCH 29.8 (26-32) pg MCHC 33.8 (32-36) g/dl RDW 13.6 (11.5-14.0) % Plt Count 330 (150-450) K/mm3 MPV 9.0 (7.5-11.0) fl Gran % 67.8 H (36.0-66.0) % Eos # (Auto) 0.01 (0-0.5) Absolute Lymphs (auto) 2.42 (1.0-4.6) Absolute Monos (auto) 0.64 (0.0-1.3) Lymphocytes % 25.3 (24.0-44.0) % Monocytes % 6.7 (0.0-12.0) % Eosinophils % 0.1 (0.00-5.0) % Basophils % 0.1 (0.0-0.4) % Absolute Granulocytes 6.50 (1.4-6.9) Basophils # 0.01 (0-0.4) Sodium (137-145) mmol/L Potassium (3.5-5.1) mmol/L Chloride (98-107) mmol/L Carbon Dioxide (22-30) mmol/L Anion Gap (5-15) MEQ/L BUN (9-20) mg/dL Creatinine (0.66-1.25) mg/dL Estimated GFR ML/MIN Glucose (74-106) mg/dL Calcium (8.4-10.2) mg/dL Magnesium (1.6-2.3) mg/dL Total Bilirubin (0.2-1.3) mg/dL AST (17-59) U/L ALT (0-50) U/L Alkaline Phosphatase (38-126) U/L Serum Total Protein (6.3-8.2) g/dL Albumin (3.5-5.0) g/dL Urine Color (YELLOW) Urine Appearance (CLEAR) Urine pH (5-6) Ur Specific [place] (1.005-1.025) Urine Protein (Negative) Urine Ketones (NEGATIVE) Urine Blood (0-5) Heriberto/ul Urine Nitrite (NEGATIVE) Urine Bilirubin (NEGATIVE) Urine Urobilinogen (0-1) mg/dL Ur Leukocyte Esterase (NEGATIVE) Urine WBC (Auto) (0-5) /HPF Urine RBC (Auto) (0-2) /HPF U Epithel Cells (Auto) (FEW) /HPF Urine Bacteria (Auto) (NEGATIVE) /HPF Urine Culture Reflexed (NO) Urine Glucose (NEGATIVE) mg/dL Salicylates (2-20) mg/dL Urine Opiates Level (NEGATIVE) Ur Methadone (NEGATIVE) Acetaminophen (10-30) ug/ml Urine Barbiturates (NEGATIVE) Ur Phencyclidine (PCP) (NEGATIVE) Urine Amphetamine (NEGATIVE) U Benzodiazepine Level (NEGATIVE) Urine Cocaine (NEGATIVE) Urine Marijuana (THC) (NEGATIVE) Ethyl Alcohol (0-10) mg/dL <GILBERTO WYNN - Last Filed: 04/01/21 06:14> - Progress Progress: improved, re-examined Counseled pt/family regarding: drug and/or alcohol abuse, lab results, diagnosis, need for follow-up <MANDIE CHRISTINA - Last Filed: 04/01/21 11:35> - Progress Progress Note: 04/01/21 01:29 Patient is not confused or altered at all and answering questions appropriately. Not in any distress. I believe patient is a heavy drinker. Will obtain baseline labs and will consult [facility] to see what they recommend. 04/01/21 06:42 Patient work-up is grossly unremarkable except for elevated blood alcohol level 191 and recheck is 119. Patient cannot be evaluated by [facility] until it drops below the legal limit of 80. We will recheck, at this point care is t ransferred to Dr. Fu due to end of my shift. (GILBERTO WYNN) 04/01/21 07:13 pt taken over from Dr. Wynn at change of shift after discussion of pending arrangement for inpt treatment with [facility] coordination for Psych Tx with hx of recurring etoh intoxication and recent breakup with girlfriend precipitating . Pt expresses wishes for Tx . will be re-eval when level is sober to determine approriate place for Tx. No signs or symptoms of injuries normal exam neuro without deficits and full ROM all ext without pain, chest clear and nontender abd soft and nontender. 04/01/21 07:41 the required wait for the etoh to decrease is as expected, adding to the time to disposition for this patient. 04/01/21 08:37 pt has ETOH decreased to below intox levels at .058 now and exam still normal neuro no chest, abd, or ext or spine tenderness or symptoms. acetamenophen added and negative. Will now be re-eval for any signs of SI/HI by telemental to determine appropriate disposition. 04/01/21 09:52 No current SI/HI - pt is going over safety plan with mental health counselor at this time. 04/01/21 11:27 no current inpatient beds available for voluntary treatment program and pt without SI/HI or clinical findings to support medical admission at this time otherwise. Mental health telemed eval has concluded that pt is safe for discharge with his current safety plan. discussed risk/benefits with pt and he wishes to choose outpt f/u while awaiting residential inpatient placement and has the capacity to make that choice at this time. 04/01/21 11:31 hr now down into 80s. (MANDIE CHRISTINA) <GILBERTO WYNN - Last Filed: 04/01/21 06:14> - Departure Departure Disposition: Home Critical Care Time: No <MANIDE CHRISTINA - Last Filed: 04/01/21 11:35> - Departure Clinical Impression: etoh overuse Condition: Good Referrals: JUSTIN HEBERT MD [Primary Care Provider] - Follow up/PCP as directed Instructions: Alcohol Abuse and Alcoholism (DC) Additional Instructions: keep in contact with the mental health professionals to monitor your progress while waiting for an inpatient treatment availability. Keep with your safety plan . Return meantime if any disturbing thoughts or symptoms or any other concerns.
[2021-04-01] MEDS ORDERED: Ativan 1 MG PO ONE (01:31)
[2021-04-01] MEDS ORDERED: Ativan 1 MG ONE (01:39)
[2021-04-01 01:53] LABS: Basophil (Absolute #) 0.01 (0-0.4); Eosinophil % 0.1 % (0.00-5.0); Eosinophil (Absolute #) 0.01 (0-0.5); Hematocrit 46.8 % (42-50); Hemoglobin 15.8 gm/dl (12.5-18.0); Lymphocyte (Absolute #) 2.42 (1.0-4.6); Lymphocytes % 25.3 % (24.0-44.0); Mean Cell Volume 88.1 fl (78-100); Mean Corpuscular Hemoglobin 29.8 pg (26-32); Mean Corpuscular Hgb Concent. 33.8 g/dl (32-36); Monocyte (Absolute #) 0.64 (0.0-1.3); Monocytes % 6.7 % (0.0-12.0); Neutrophil % 67.8 % (36.0-66.0); Platelet Count 330 K/mm3 (150-450); Red Blood Count 5.31 M/mm3 (4.1-5.6); Red Cell Distribution Width 13.6 % (11.5-14.0); White Blood Count 9.6 K/mm3 (4.0-10.5)
[2021-04-01 02:14] LABS: Appearance CLEAR (CLEAR); Bilirubin NEGATIVE (NEGATIVE); Blood NEGATIVE Ery/ul (0-5); Glucose NEGATIVE (NEGATIVE); Ketones NEGATIVE (NEGATIVE); Leukocyte Esterase NEGATIVE (NEGATIVE); Nitrite NEGATIVE (NEGATIVE); Protein,Urine Dip NEGATIVE (Negative); Specific Gravity 1.003 (1.005-1.025); Urobilinogen NEGATIVE mg/dL (0-1)
[2021-04-01 02:24] LABS: ALBUMIN 4.8 g/dL (3.5-5.0); ALKALINE PHOSPHATASE 121 U/L (38-126); ANION GAP 16.7 MEQ/L (5-15); CHLORIDE 103 mmol/L (98-107); Calcium 9.2 mg/dL (8.4-10.2); Carbon Dioxide 27 mmol/L (22-30); Creatinine 1 0.54 mg/dL (0.66-1.25); EST GLOMERULAR FILTRATION RATE > 60.0 ML/MIN; ETHYL ALCOHOL 191 mg/dL (0-10); Glucose 102 mg/dL (74-106); Potassium 3.7 mmol/L (3.5-5.1); SALICYLATE < 1.0 mg/dL (2-20); SGOT/AST 25 U/L (17-59); SGPT/ALT 38 U/L (0-50); SODIUM 143 mmol/L (137-145); Total Protein 7.4 g/dL (6.3-8.2)
[2021-04-01 02:28] LABS: Amphetamine,Urine NEGATIVE (NEGATIVE); Barbiturate,Urine NEGATIVE (NEGATIVE); Benzodiazepine,Urine NEGATIVE (NEGATIVE); Cocaine,Urine NEGATIVE (NEGATIVE); Methadone,Urine NEGATIVE (NEGATIVE); Opiate,Urine NEGATIVE (NEGATIVE); PCP,Urine NEGATIVE (NEGATIVE); THC,Urine NEGATIVE (NEGATIVE)
[2021-04-01 02:29] LABS: BLOOD UREA NITROGEN < 2 mg/dL (9-20)
[2021-04-01 08:26] LABS: ACETAMINOPHEN < 10 ug/ml (10-30); ETHYL ALCOHOL 58 mg/dL (0-10)
[2021-04-01 10:22] VITALS: PULSE 82; O2SAT 98
[2021-04-01 12:51] VITALS: BP 114/69
== END 2021-04-01 11:54 | disposition home or self-care (01) ==
LOC: ED 00:39
DX: F10.129 Alcohol abuse with intoxication, unspecified (principal); F10.120 Alcohol abuse with intoxication, uncomplicated; Y90.6 Blood alcohol level of 120-199 mg/100 ml; Z63.8 Other specified problems related to primary support group; Z72.0 Tobacco use; F32.A Depression, unspecified
CPT/HCPCS: 36415; 80053; 80307; 81001; 83735; 85025; 99284; G0480; A9270-GY

== ENCOUNTER 2021-06-18 23:45 | Emergency (ER) | payer OTHER ==
[2021-06-19 00:08] VITALS: O2SAT 99
[2021-06-19] MEDS ORDERED: BACTRIM DS TABLET PO STA (00:09)
[2021-06-19] MEDS ORDERED: BACTRIM DS TABLET PO ONE (00:18)
--- NOTE | 2021-06-19 00:20 | ERPHSYRPT ---
- History of Present Illness Time Seen by Provider: 06/18/21 23:59 Source: patient Exam Limitations: no limitations Patient Subjective Stated Complaint: Pt states " I have an abscess on my chin that keeps coming back over the last 2 years. Last time I popped it was abot 2 weeks ago." Triage Nursing Assessment: Pt alert and oriented x3, pt ambulates appropriately to cot, pt has small area on chin but has no redness, swelling, or pus/blood from area, pt denies fevers at home, pt last drained it 3 weeks ago at home and stated that the area had yellow pus come out of it, pt currently taking antibiotics for UTI but unknown what the medication is called. Physician History: Patient is a 25-year-old male presents to our ED for evaluation of suspected abscess to his chin. Patient states he has had a pimple on his chin for the past 2 weeks that he has been picking. Patient states 2 weeks ago the pimple was draining pus. Patient states he currently has a urinary tract infection and is on an unknown antibiotic. The area of involvement on his chin is indurated. No cellulitis. No trauma. No fever. No headache. Symptoms are mild to moderate in intensity. No specific worsening improving factors. No active pa in. Patient is otherwise healthy. Tetanus up-to-date. He voices no other complaints or concerns at this time. Timing/Duration: week(s) (2 weeks) Severity: moderate Modifying Factors: Improves With: nothing Associated Symptoms: denies symptoms Allergies/Adverse Reactions: No Known Drug Allergies Allergy (Verified 04/01/21 01:09) Hx Tetanus, Diphtheria Vaccination/Date Given: Yes Hx Influenza Vaccination/Date Given: No Hx Pneumococcal Vaccination/Date Given: No Immunizations Up to Date: Yes Travel Risk - International Travel Have you traveled outside of the country in past 3 weeks: No - Coronavirus Screening Are you exhibiting any of the following symptoms?: No Close contact with a COVID-19 positive Pt in past 14-21 Days: No - Vaccine Status Have you recieved a Covid-19 vaccination: Yes Morning Babysitter: Moderna - Vaccination Dates Date of 2cond Vaccination (if applicable): 06/15/2020 - Review of Systems Constitutional: No Symptoms, No Fever, No Chills Eyes: No Symptoms Ears, Nose, & Throat: No Symptoms Respiratory: No Symptoms, No Cough, No Dyspnea Cardiac: No Symptoms, No Chest Pain, No Edema, No Syncope Abdominal/Gastrointestinal: No Symptoms, No Abdominal Pain, No Nausea, No Vomiting, No Diarrhea Genitourinary Symptoms: No Symptoms, No Dysuria Musculoskeletal: No Symptoms, No Back Pain, No Neck Pain Skin: No Symptoms, No Rash Neurological: No Symptoms, No Dizziness, No Focal Weakness, No Sensory Changes Psychological: No Symptoms Endocrine: No Symptoms Hematologic/Lymphatic: No Symptoms Immunological/Allergic: No Symptoms All Other Systems: Reviewed and Negative - Past Medical History Pertinent Past Medical History: Yes Neurological History: No Pertinent History ENT History: No Pertinent History Cardiac History: Arrhythmia Respiratory History: Asthma Endocrine Medical History: Hyperthyroidism, Other Musculoskeletal History: No Pertinent History GI Medical History: No Pertinent History History: No Pertinent History Psycho-Social History: Anxiety, Depression, Panic Disorder Male Reproductive Disorders: No Pertinent History Other Medical History: TACHYCARDIA. GRAVES DISEASE. IRREGULAR HR - Past Surgical History Past Surgical History: Yes Neuro Surgical History: No Pertinent History Cardiac: No Pertinent History Respiratory: No Pertinent History Gastrointestinal: Cholecystectomy Genitourinary: No Pertinent History Musculoskeletal: No Pertinent History Male Surgical History: No Pertinent History Other Surgical History: TONSILS - Social History Smoking Status: Current every day smoker How long have you smoked: 7yrs Exposure to second hand smoke: Yes Drug Use: none Patient Lives Alone: No Significant Family History: no pertinent family hx - Nursing Vital Signs Nursing Vital Signs: Initial Vital Signs Temperature 99.2 F 06/18/21 23:58 Pulse Rate 99 H 06/18/21 23:58 Respiratory Rate 16 06/18/21 23:58 Blood Pressure 133/84 06/18/21 23:58 O2 Sat by Pulse Oximetry 99 06/18/21 23:58 Pain Scale Pain Intensity 9 - Physical Exam General Appearance: no apparent distress, alert Eye Exam: PERRL/EOMI, eyes nml inspection Ears, Nose, Throat Exam: normal ENT inspection, TMs normal, pharynx normal, moist mucous membranes, other (indurated skin at anterior chin. Early cellulitis. No open or draining lesions. There is a small papular lesion that appears to be a pimple. Patient has been picking at this lesion.) Neck Exam: normal inspection, non-tender, supple, full range of motion Respiratory Exam: normal breath sounds, lungs clear, airway intact, No respiratory distress Cardiovascular Exam: regular rate/rhythm, normal heart sounds, normal peripheral pulses Gastrointestinal/Abdomen Exam: soft, normal bowel sounds, No tenderness, No mass Back Exam: normal inspection, normal range of motion, No CVA tenderness, No vertebral tenderness Extremity Exam: normal inspection, normal range of motion, pelvis stable Neurologic Exam: alert, oriented x 3, cooperative, normal mood/affect, nml cerebellar function, nml station & gait, sensation nml, No motor deficits Skin Exam: normal color, warm, dry, No rash Lymphatic Exam: No adenopathy SpO2 Interpretation: normal SpO2: 99 O2 Delivery: Room Air - Course Nursing assessment & vital signs reviewed: Yes Ordered Tests: Medication Summary Discontinued Medications Generic Name Dose Route Start Last Admin Trade Name Freq PRN Reason Stop Dose Admin Trimethoprim/Sulfamethoxazole 1 tab 06/19/21 00:09 Smz/Tmp Ds Tablet 1 Tablet PO 06/19/21 00:10 STAT STA Trimethoprim/Sulfamethoxazole Confirm 06/19/21 00:18 Smz/Tmp Ds Tablet 1 Tablet Administered 06/19/21 00:19 Dose 1 tab PO .[place]-MED ONE - Progress Progress: improved Progress Note: Patient reassessed. He is well. Patient received a dose of Bactrim in our ED. A prescription for the same was forwarded to patient's pharmacy. Patient agrees to follow-up with his primary care doctor within 48 hours. He voices no other complaints or concerns at this time. Portions of this note were created with voice recognition technology. There may be grammatical, spelling, punctuation or sound alike errors 06/19/21 00:29 Counseled pt/family regarding: diagnosis, need for follow-up - Departure Departure Disposition: Home Clinical Impression: indurated skin, Cellulitis Condition: Stable Critical Care Time: No Referrals: JUSTIN HEBERT MD [Primary Care Provider] - Follow up/PCP as directed Additional Instructions: Discharge/Care Plan KIMJUSTIN ESPERANZA was seen on 06/19/21 in the Emergency Room. The patient was counseled regarding Diagnosis,Lab results, Imaging studies, need for follow up and when to return to the Emergency Room. Prescriptions given: Discharge Note I have spoken with the patient and/or caregivers. I have explained the patient's condition, diagnosis and treatment plan based on the information available to me at this time. I have answered the patient's and/or caregiver's questions and addressed any concerns. The patient and/or caregivers have as good understanding of the patient's diagnosis, condition and treatment plan as can be expected at this point. The vital signs have been stable. The patient's condition is stable and appropriate for discharge from the emergency department. The patient will pursue further outpatient evaluation with the primary care physician or other designated or consulting physician as outlined in the discharge instructions. The patient and/or caregivers are agreeable to this plan of care and follow-up instructions have been explained in detail. The patient and/or caregivers have received these instruction. The patient/and or caregivers are aware that any significant change in condition or worsening of symptoms should prompt an immediate return to this or the closest emergency department or call 911. Prescriptions: Smz/Tmp Ds Tablet [Bactrim Ds Tablet] 1 udtab PO BID 7 Days #14 tablet
[2021-06-19 00:28] VITALS: BP 129/83; PULSE 84
== END 2021-06-19 00:32 | disposition home or self-care (01) ==
LOC: ED 23:45
DX: L03.211 Cellulitis of face (principal); R23.4 Changes in skin texture; Z72.0 Tobacco use
CPT/HCPCS: 99283; A9270-GY

== ENCOUNTER 2021-08-10 05:57 | Day surgery (SDC) | payer OTHER ==
[2012-03-05 21:13] VITALS: BP 104/65
== END 2021-08-10 06:30 ==
LOC: SDC 05:57
PROVIDERS: ATTEND Family Medicine
DX: Z53.8 Procedure and treatment not carried out for other reasons (principal)

== ENCOUNTER 2021-12-07 09:05 | Emergency (ER) | payer OTHER ==
[2021-12-07 09:45] VITALS: O2SAT 98
[2021-12-07] MEDS ORDERED: TORAdol 30 mg Injection IM ONE (10:15)
--- NOTE | 2021-12-07 10:17 | XRAY ---
Indication: Pain. Comparison: August 27, 2006 3 view left knee demonstrates new suprapatellar metallic BB in the soft tissues and incidental small posterior fabella. No other bony, articular, or soft tissue abnormalities.
--- NOTE | 2021-12-07 10:22 | ERPHSYRPT ---
- History of Present Illness Source: patient Exam Limitations: no limitations Patient Subjective Stated Complaint: "My knee has been hurting for the past couple of weeks, the pain got so bad I felt like I could fall over at work today." Triage Nursing Assessment: Pt presents to ER with complaints of left knee pain x 2 weeks, unknown injury. Pt is alert and oriented x 3. Able to ambulate with shuffle gait. Pt skin is pink, warm, and dry. No obvious deformity noted to kn ee. Pain is rated a 8/10 scale. Pt respirations are easy and unlabored at this time. Denies any further complaints at this time. Physician History: 26 yo wm w L knee pain x 2 wks. Pt denies injury and states that pain is worse w weight bearing. Pain is an 8 w weight bearing. Pt was at work today when pain became unbearable. He denies previous L knee pain. Method of Injury: unknown Occurred: other (2 wks) Quality: constant Severity of Pain-Max: severe Severity of Pain-Current: severe Lower Extremities Pain: knee: left Modifying Factors: Improves With: movement Associated Symptoms: No unable to bear weight Allergies/Adverse Reactions: No Known Drug Allergies Allergy (Verified 12/07/21 09:45) Home Medications: Cholestyramine Light 4 gm [QUESTRAN Light 4 GM Packet] 4 gm PO BID PRN 08/01/21 [History] Diclofenac Potassium 50 mg PO BID PRN 08/01/21 [History] Hyoscyamine Sulfate [Levsin] 0.125 mg PO Q4HPRN PRN 08/01/21 [History] Trazodone HCl 50 mg [Desyrel 50 mg] 50 mg PO DAILY 08/01/21 [History] Hx Tetanus, Diphtheria Vaccination/Date Given: Yes Hx Influenza Vaccination/Date Given: Yes Hx Pneumococcal Vaccination/Date Given: Yes Immunizations Up to Date: Yes Travel Risk - International Travel Have you traveled outside of the country in past 3 weeks: No - Coronavirus Screening Are you exhibiting any of the following symptoms?: No Close contact with a COVID-19 positive Pt in past 14-21 Days: No - Vaccine Status Have you recieved a Covid-19 vaccination: Yes 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 - Vaccination Dates Date of 2cond Vaccination (if applicable): 2020 - Review of Systems Constitutional: No Symptoms Eyes: No Symptoms Ears, Nose, & Throat: No Symptoms Respiratory: No Symptoms Cardiac: No Symptoms Abdominal/Gastrointestinal: No Symptoms Genitourinary Symptoms: No Symptoms Skin: No Symptoms Neurological: No Symptoms Psychological: No Symptoms Endocrine: No Symptoms Hematologic/Lymphatic: No Symptoms Immunological/Allergic: No Symptoms - Past Medical History Pertinent Past Medical History: Yes Neurological History: No Pertinent History ENT History: No Pertinent History Cardiac History: No Pertinent History Respiratory History: Asthma Endocrine Medical History: Hyperthyroidism, Other Musculoskeletal History: Arthritis GI Medical History: Stomach Cancer History: No Pertinent History Psycho-Social History: Anxiety, Depression, Panic Disorder Male Reproductive Disorders: No Pertinent History Other Medical History: 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 GRAVES DISEASe - Past Surgical History Past Surgical History: Yes Neuro Surgical History: No Pertinent History Cardiac: No Pertinent History Respiratory: No Pertinent History Gastrointestinal: Cholecystectomy Genitourinary: No Pertinent History Musculoskeletal: No Pertinent History Male Surgical History: No Pertinent History Other Surgical History: TONSILS - Social History Smoking Status: Current every day smoker How long have you smoked: 7yrs Exposure to second hand smoke: No Drug Use: none Patient Lives Alone: No Significant Family History: no pertinent family hx - Nursing Vital Signs Nursing Vital Signs: Initial Vital Signs Temperature 96.9 F 12/07/21 09:39 Pulse Rate 75 12/07/21 09:39 Respiratory Rate 18 12/07/21 09:39 Blood Pressure 119/69 12/07/21 09:39 O2 Sat by Pulse Oximetry 98 12/07/21 09:39 Pain Scale Pain Intensity 6 - Physical Exam SpO2 Interpretation: normal SpO2: 98 O2 Delivery: Room Air - Course Nursing assessment & vital signs reviewed: Yes - Radiology Exams Knee X-ray Interpretation: Discussed w/ radiologist (L knee-Old BB/Nothing acute) Ordered Tests: Active Orders 24 hr Category Date Time Status Chinmay Bandage Application -[facility] STAT Care 12/07/21 10:15 Completed KNEE (3 VIEWS) Stat Exams 12/07/21 Completed Medication Summary Discontinued Medications Generic Name Dose Route Start Last Admin Trade Name Freq PRN Reason Stop Dose Admin Ketorolac Tromethamine 15 mg 12/07/21 10:15 12/07/21 10:29 Ketorolac Tromethamine 30 Mg/Ml Inj IM 12/07/21 10:16 15 mg STAT ONE Administration Ketorolac Tromethamine Confirm 12/07/21 10:28 Ketorolac Tromethamine 30 Mg/Ml Inj Administered 12/07/21 10:29 Dose 30 mg .ROUTE .STK-MED ONE - Progress Progress: improved Progress Note: 12/07/21 10:21 15mg IM Toradol Chinmay wrap L knee per nursing/NVI Counseled pt/family regarding: diagnosis, need for follow-up, rad results - Departure Departure Disposition: Home Clinical Impression: Knee pain, left Condition: Stable Critical Care Time: No Referrals: JUSTIN HEBERT MD [Primary Care Provider] - Follow up/PCP as directed ORTHO - BILL LUKE NP [NON-STAFF PHY W/O PRIVILEGES] - Follow up/PCP as directed Instructions: Knee Sprain (DC), Knee Pain (DC) Additional Instructions: Etodolac as needed for pain Follow up in orthopedic clinic M-Fr 8-10 Weight bearing as tolerated Forms: Work/School Release Form Prescriptions: Etodolac 400 mg PO BID PRN PRN #10 tablet PRN Reason: Pain
[2021-12-07] MEDS ORDERED: TORAdol 30 mg Injection ONE (10:28)
[2021-12-07 10:46] VITALS: BP 120/62; PULSE 70
== END 2021-12-07 10:47 | disposition home or self-care (01) ==
LOC: ED 09:05
DX: M25.562 Pain in left knee (principal); Z72.0 Tobacco use; Z79.899 Other long term (current) drug therapy
CPT/HCPCS: 73562; 96372; 99283; J1885

== ENCOUNTER 2021-12-14 23:49 | Emergency (ER) | payer OTHER ==
[2021-12-15] MEDS ORDERED: Rocephin 1000 MG INJ IM ONE (00:17)
[2021-12-15] MEDS ORDERED: TORAdol 30 mg Injection IM ONE (00:17)
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
[2021-12-15] MEDS ORDERED: Rocephin 1000 MG INJ ONE (00:32)
[2021-12-15] MEDS ORDERED: TORAdol 30 mg Injection ONE (00:32)
[2021-12-15] MEDS ORDERED: XYLOCAINE 1% HCL 20 ML MDV ONE (00:33)
[2021-12-15 00:46] VITALS: BP 123/73; PULSE 89
[2021-12-15 01:03] VITALS: O2SAT 100
== END 2021-12-15 00:45 | disposition home or self-care (01) ==
LOC: ED 23:49
DX: K04.7 Periapical abscess without sinus (principal); K02.9 Dental caries, unspecified
CPT/HCPCS: 96372; 99283; J0696; J1885

== ENCOUNTER 2021-12-17 04:14 | Emergency (ER) | payer OTHER ==
[2021-12-17 04:34] VITALS: BP 143/65; PULSE 101; O2SAT 95
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
== END 2021-12-17 05:09 | disposition home or self-care (01) ==
LOC: ED 04:14
DX: M25.512 Pain in left shoulder (principal); V48.6XXA Car passenger injured in noncollision transport accident in traffic accident, initial encounter
CPT/HCPCS: 73030; 99282

== ENCOUNTER 2021-12-20 07:02 | Emergency (ER) | payer OTHER ==
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
[2021-12-20 08:49] VITALS: BP 135/93; PULSE 100; O2SAT 100
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
== END 2021-12-20 09:00 | disposition home or self-care (01) ==
LOC: ED 07:02
DX: M25.511 Pain in right shoulder (principal); V89.2XXA Person injured in unspecified motor-vehicle accident, traffic, initial encounter; I10 Essential (primary) hypertension; Z72.0 Tobacco use; Z79.52 Long term (current) use of systemic steroids; Z79.899 Other long term (current) drug therapy
CPT/HCPCS: 73030; 99282

== ENCOUNTER 2022-01-29 18:36 | Emergency (ER) | payer OTHER ==
[2022-01-29 18:45] VITALS: O2SAT 99
--- NOTE | 2022-01-29 19:41 | ERPHSYRPT ---
- History of Present Illness Time Seen by Provider: 01/29/22 19:38 Historian: patient Patient Subjective Stated Complaint: Pt states that his RLQ has been hurting all day, he can pinpoint the spot, rates the pain as 10/10 Triage Nursing Assessment: Pt brought to the ER by EMS, micah santos, rates pain as 10/10, texting on his phone, making jokes, has been here multiple times for the same thing, doesn't appear to be in any distress Physician History: 26-year-old male presents to our ED for evaluation of right lower quadrant pain. Patient arrived via EMS. Patient states pain started this afternoon. Pain has been constant. Patient rates pain 10 on 10. He has not taken any for pain. Last meal was breakfast. No testicular pain. No hematuria no dysuria. Patient is otherwise healthy. He voices no other complaints or concerns at this time. Timing/Duration: today Activities at Onset: none Quality: aching Abdominal Pain Onset Location: RLQ Pain Radiation: no radiation Severity of Pain-Max: moderate Severity of Pain-Current: mild Modifying Factors: Improves With: palpation Associated Symptoms: denies symptoms, No testicular pain Previous symptoms: no prior history Allergies/Adverse Reactions: No Known Drug Allergies Allergy (Verified 01/29/22 18:45) Home Medications: Trazodone HCl 50 mg [Desyrel 50 mg] 50 mg PO DAILY 08/01/21 [History] Hx Tetanus, Diphtheria Vaccination/Date Given: Yes Hx Influenza Vaccination/Date Given: No Hx Pneumococcal Vaccination/Date Given: No Travel Risk - International Travel Have you traveled outside of the country in past 3 weeks: No - Coronavirus Screening Are you exhibiting any of the following symptoms?: No Close contact with a COVID-19 positive Pt in past 14-21 Days: No - Vaccine Status Have you recieved a Covid-19 vaccination: Yes [employer]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 - Vaccination Dates Date of 2cond Vaccination (if applicable): 2020 - Review of Systems Constitutional: No Symptoms, No Fever, No Chills Eyes: No Symptoms Ears, Nose, & Throat: No Symptoms Respiratory: No Symptoms, No Cough, No Dyspnea Cardiac: No Symptoms, No Chest Pain, No Edema, No Syncope Abdominal/Gastrointestinal: No Symptoms, No Abdominal Pain, No Nausea, No Vomiting, No Diarrhea Genitourinary Symptoms: No Symptoms, No Dysuria Musculoskeletal: No Symptoms, No Back Pain, No Neck Pain Skin: No Symptoms, No Rash Neurological: No Symptoms, No Dizziness, No Focal Weakness, No Sensory Changes Psychological: No Symptoms Endocrine: No Symptoms Hematologic/Lymphatic: No Symptoms Immunological/Allergic: No Symptoms All Other Systems: Reviewed and Negative - Past Medical History Pertinent Past Medical History: Yes Neurological History: No Pertinent History ENT History: No Pertinent History Cardiac History: No Pertinent History, Hypertension Respiratory History: Asthma Endocrine Medical History: Hyperthyroidism, Other Musculoskeletal History: Arthritis GI Medical History: Stomach Cancer History: No Pertinent History Psycho-Social History: Anxiety, Depression, Panic Disorder Male Reproductive Disorders: No Pertinent History Other Medical History: 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 GRAVES DISEASe - Past Surgical History Past Surgical History: Yes Neuro Surgical History: No Pertinent History Cardiac: No Pertinent History Respiratory: No Pertinent History Gastrointestinal: Cholecystectomy Genitourinary: No Pertinent History Musculoskeletal: No Pertinent History Male Surgical History: No Pertinent History Other Surgical History: TONSILS - Social History Smoking Status: Current every day smoker How long have you smoked: 9yrs Exposure to second hand smoke: Yes Drug Use: none Patient Lives Alone: No Significant Family History: no pertinent family hx - Nursing Vital Signs Nursing Vital Signs: Initial Vital Signs Temperature 97.6 F 01/29/22 18:38 Pulse Rate 62 01/29/22 18:38 Blood Pressure 124/71 01/29/22 18:38 O2 Sat by Pulse Oximetry 99 01/29/22 18:38 Pain Scale Pain Intensity 10 - Physical Exam General Appearance: no apparent distress, alert Eye Exam: PERRL/EOMI, eyes nml inspection Ears, Nose, Throat Exam: normal ENT inspection, pharynx normal, moist mucous membranes Neck Exam: normal inspection, non-tender, supple, full range of motion Respiratory Exam: normal breath sounds, lungs clear, airway intact, No respiratory distress Cardiovascular Exam: regular rate/rhythm, normal heart sounds, normal peripheral pulses Gastrointestinal/Abdomen Exam: soft, other (Tenderness to palpation right lower quadrant. Patient has no testicular pain or tenderness.), No tenderness, No mass Back Exam: normal inspection, normal range of motion, No CVA tenderness, No vertebral tenderness Extremity Exam: normal inspection, normal range of motion, pelvis stable Neurologic Exam: alert, oriented x 3, cooperative, normal mood/affect, nml cerebellar function, sensation nml, No motor deficits Skin Exam: normal color, warm, dry Lymphatic Exam: No adenopathy SpO2 Interpretation: normal SpO2: 99 O2 Delivery: Room Air - Course Nursing assessment & vital signs reviewed: Yes - CT Exams Abdomen/Pelvis CT Interpretation: Tele-radiologist Report (Mild prominence of the spleen measuring 13.8 cm in length unchanged from prior exam. Moderate fecal retention in the colon. No evidence of diverticulitis. Normal-appearing appendix. Shotty mesenteric and retroperitoneal lymph nodes.) Ordered Tests: Active Orders 24 hr Category Date Time Status ABDOMEN AND PELVIS W/0 CONTRAS [CT] Stat Exams 01/29/22 19:37 Taken CBC W DIFF Stat Lab 01/29/22 20:05 Completed CMP Stat Lab 01/29/22 20:05 Received UA W/RFX CULTURE Stat Lab 01/29/22 20:05 Completed Lab/Rad Data: Laboratory Result Diagrams 01/29/22 20:05 Laboratory Results 01/29/22 01/29/22 Range/Units 20:05 20:05 WBC 7.0 (4.0-10.5) x10^3/uL RBC 5.11 (4.1-5.6) x10^6/uL Hgb 15.2 (12.5-18.0) g/dL Hct 46.5 (42-50) % MCV 91.0 (78-100) fL MCH 29.7 (26-32) pg MCHC 32.7 (32-36) g/dL RDW 12.6 (11.5-14.0) % Plt Count 191 (150-450) x10^3/uL MPV 8.9 (7.5-11.0) fL Gran % 71.9 H (36.0-66.0) % Immature Gran % (Auto) 0.3 (0.00-0.4) % Nucleat RBC Rel Count 0.0 (0.00-0.1) % Eos # (Auto) 0.07 (0-0.5) x10^3/uL Immature Gran # (Auto) 0.02 (0.00-0.03) x10^3u/L Absolute Lymphs (auto) 1.43 (1.0-4.6) x10^3/uL Absolute Monos (auto) 0.41 (0.0-1.3) x10^3/uL Absolute Nucleated RBC 0.00 (0.00-0.01) x10^3u/L Lymphocytes % 20.5 L (24.0-44.0) % Monocytes % 5.9 (0.0-12.0) % Eosinophils % 1.0 (0.00-5.0) % Basophils % 0.4 (0.0-0.4) % Absolute Granulocytes 5.03 (1.4-6.9) x10^3/uL Basophils # 0.03 (0-0.4) x10^3/uL Urinalys Dipstick Clnc MAIN LAB Urine Color YELLOW (YELLOW) Urine Appearance CLEAR (CLEAR) Urine pH 7.0 (5-6) Ur Specific [place] 1.020 (1.005-1.025) POC Urine Protein Conf NEGATIVE (Negative) Urine Ketones SMALL A (NEGATIVE) Urine Nitrite NEGATIVE (NEGATIVE) Urine Bilirubin SMALL A (NEGATIVE) Urine Urobilinogen 0.2 (0-1) mg/dL Urine Leukocytes NEGATIVE (NEGATIVE) Urine WBC (Auto) NONE (0-5) /HPF Urine RBC (Auto) NONE (0-2) /HPF U Epithel Cells (Auto) NONE (FEW) /HPF Urine Bacteria (Auto) RARE (NEGATIVE) /HPF Urine RBC TRACE-INTACT A (0-5) Heriberto/ul Ur Culture Indicated? NO Urine Glucose 100 A (NEGATIVE) mg/dL - Progress Progress: improved Progress Note: Patient reassessed. He is resting company. Patient is declined pain medication. Patient now states he was pain medication. He has no allergies. Toradol administered. CT scan negative for appendicitis. Patient was concerned with appendicitis in light of his right lower quadrant pain. CT scan reveals fecal retention mild to moderate in quantity. Mild prominence of the spleen. No evidence of colitis or diverticulitis. Laboratory work-up shows no significant derangements Vital stable. Patient appears comfortable. No indication for further work-up. Will discharge home. Patient agrees to follow-up with his primary care doctor within 48 hours for evaluation. 01/29/22 20:29 Counseled pt/family regarding: lab results, diagnosis, need for follow-up, rad results - Departure Departure Disposition: Home Clinical Impression: Abdominal pain, Constipation Condition: Stable Critical Care Time: No Referrals: JUSTIN HEBERT MD [Primary Care Provider] - Follow up/PCP as directed Additional Instructions: Discharge/Care Plan JUSTIN ALVAREZ was seen on 01/29/22 in the Emergency Room. The patient was counseled regarding Diagnosis,Lab results, Imaging studies, need for follow up and when to return to the Emergency Room. Prescriptions given: Discharge Note I have spoken with the patient and/or caregivers. I have explained the patient's condition, diagnosis and treatment plan based on the information available to me at this time. I have answered the patient's and/or caregiver's questions and addressed any concerns. The patient and/or caregivers have as good understanding of the patient's diagnosis, condition and treatment plan as can be expected at this point. The vital signs have been stable. The patient's condition is stable and appropriate for discharge from the emergency department. The patient will pursue further outpatient evaluation with the primary care physician or other designated or consulting physician as outlined in the discharge instructions. The patient and/or caregivers are agreeable to this plan of care and follow-up instructions have been explained in detail. The patient and/or caregivers have received these instruction. The patient/and or caregivers are aware that any significant change in condition or worsening of symptoms should prompt an immediate return to this or the closest emergency department or call 911.
[2022-01-29 20:09] VITALS: PULSE 64
[2022-01-29 20:10] LABS: Absolute Neutrophil Ct (ANC) 5.03 x10^3/uL (1.4-6.9); Basophil (Absolute #) 0.03 x10^3/uL (0-0.4); Eosinophil (Absolute #) 0.07 x10^3/uL (0-0.5); Hematocrit 46.5 % (42-50); Hemoglobin 15.2 g/dL (12.5-18.0); Lymphocyte (Absolute #) 1.43 x10^3/uL (1.0-4.6); Lymphocytes % 20.5 % (24.0-44.0); Mean Corpuscular Hemoglobin 29.7 pg (26-32); Mean Corpuscular Hgb Concent. 32.7 g/dL (32-36); Mean Platelet Volume 8.9 fL (7.5-11.0); Monocyte (Absolute #) 0.41 x10^3/uL (0.0-1.3); Monocytes % 5.9 % (0.0-12.0); Neutrophil % 71.9 % (36.0-66.0); Platelet Count 191 x10^3/uL (150-450); Red Blood Count 5.11 x10^6/uL (4.1-5.6); Red Cell Distribution Width 12.6 % (11.5-14.0)
[2022-01-29 20:15] LABS: Bacteria RARE /HPF (NEGATIVE)
[2022-01-29 20:21] LABS: Appearance CLEAR (CLEAR)
[2022-01-29 20:22] LABS: Bilirubin SMALL (NEGATIVE); Dipstick done @ ? MAIN LAB; Glucose 100 mg/dL (NEGATIVE); Ketones SMALL (NEGATIVE); Nitrite NEGATIVE (NEGATIVE); Protein,Urine Dip NEGATIVE (Negative); RBC TRACE-INTACT Ery/ul (0-5); Urine Cultured Indicated? NO; Urobilinogen 0.2 mg/dL (0-1)
[2022-01-29 20:28] LABS: ALBUMIN 4.6 g/dL (3.5-5.0); ALKALINE PHOSPHATASE 105 U/L (38-126); ANION GAP 11.8 MEQ/L (5-15); BLOOD UREA NITROGEN 11 mg/dL (9-20); CHLORIDE 103 mmol/L (98-107); Calcium 8.9 mg/dL (8.4-10.2); Carbon Dioxide 28 mmol/L (22-30); Creatinine 1 0.61 mg/dL (0.66-1.25); EST GLOMERULAR FILTRATION RATE > 60.0 ML/MIN; Glucose 93 mg/dL (74-106); Potassium 4.4 mmol/L (3.5-5.1); SGOT/AST 35 U/L (17-59); SGPT/ALT 46 U/L (0-50); SODIUM 139 mmol/L (137-145); Total Protein 7.6 g/dL (6.3-8.2)
[2022-01-29] MEDS ORDERED: TORAdol 30 mg Injection IM ONE (20:28)
[2022-01-29] MEDS ORDERED: TORAdol 30 mg Injection ONE (20:32)
[2022-01-29 20:44] VITALS: BP 131/77
--- NOTE | 2022-01-31 11:31 | XRAY ---
Exam: CT of the abdomen and pelvis without IV contrast from 01/29/2022. CTDI: 4.70 mGy Comparison: CT of the abdomen and pelvis with IV contrast from 02/18/2021. Indication: 26-year-old male complains of lower right side abdominal pain; headache. Technique: Non-IV contrast axial images were obtained through the abdomen and pelvis. Reconstructed coronal and sagittal images were created and reviewed. Findings: The visualized lung bases appear clear. The heart size is normal. The liver appears of unremarkable size. Evaluation of the solid organs is limited without the use of IV contrast. No gross liver mass or intrahepatic biliary duct distention is seen. Surgical clips consistent with interval cholecystectomy are noted in the right upper quadrant. The spleen is mildly prominent measuring about 13.8 cm in greatest craniocaudal dimension. This is not significantly changed from the prior CT from 02/18/2021. No focal splenic mass is seen. The pancreas and adrenal glands appear unremarkable. The kidneys appear of unremarkable size and shape. No gross renal mass is seen. No renal calculi or hydronephrosis is seen. The visualized ureters are normal in diameter without ureterolith. No urinary bladder stone is seen. The abdominal aorta is not aneurysmal. A few small shotty periaortic lymph nodes are seen representing no change. No pathological lymphadenopathy is seen. There is no evidence of free intraperitoneal air or ventral abdominal wall hernia. I see no evidence of bowel distention or obstruction. Moderate colonic stool is seen scattered throughout the colon. There is no evidence of bowel wall thickening or colonic diverticulitis. The appendix is seen adjacent to the inferior margin of the cecum and appears unremarkable. The pelvis reveals no suspicious mass or lymphadenopathy. No free intraperitoneal fluid is seen. The urinary bladder is only minimally distended. No gross abnormality is seen. The seminal vesicles and prostate gland appear unremarkable. The skeleton reveals no acute fracture or aggressive bone lesion. 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 This is unchanged and represents a developmental/congenital variant. Impression: 1. I see no CT evidence to suggest appendicitis or other inflammatory process within the right lower quadrant. 2. Moderate retained stool is seen scattered throughout the colon. However, I see no evidence of bowel wall thickening to suggest colitis or colonic diverticulitis. 3. Status post interval cholecystectomy. 4. There is mild prominence of the spleen which measures 13.8 cm in craniocaudal dimension. This is unchanged from the prior CT exam. 5. No other acute process is seen within the abdomen or pelvis.
== END 2022-01-29 20:43 | disposition home or self-care (01) ==
LOC: ED 18:36
DX: K59.00 Constipation, unspecified (principal); R10.31 Right lower quadrant pain; I10 Essential (primary) hypertension; Z79.899 Other long term (current) drug therapy; Z72.0 Tobacco use
CPT/HCPCS: 36415; 74176; 80053; 81015; 85025; 96372; 99283; J1885

== ENCOUNTER 2022-01-31 21:39 | Emergency (ER) | payer OTHER ==
[2022-01-31 21:42] VITALS: O2SAT 99
[2022-01-31] MEDS ORDERED: Sodium Chloride 0.9% 1000 ML 1,000 ML IV STA (21:58)
[2022-01-31] MEDS ORDERED: TORAdol 30 mg Injection IV ONE (21:58)
[2022-01-31] MEDS ORDERED: Sodium Chloride 0.9% 1000 ML 1,000 ML ONE (22:03)
[2022-01-31] MEDS ORDERED: TORAdol 30 mg Injection ONE (22:03)
[2022-01-31 22:19] LABS: Basophil (Absolute #) 0.04 x10^3/uL (0-0.4); Eosinophil % 0.6 % (0.00-5.0); Eosinophil (Absolute #) 0.05 x10^3/uL (0-0.5); Hematocrit 47.6 % (42-50); Hemoglobin 15.6 g/dL (12.5-18.0); Lymphocyte (Absolute #) 1.48 x10^3/uL (1.0-4.6); Lymphocytes % 19.1 % (24.0-44.0); Mean Cell Volume 91.7 fL (78-100); Mean Corpuscular Hemoglobin 30.1 pg (26-32); Mean Corpuscular Hgb Concent. 32.8 g/dL (32-36); Monocyte (Absolute #) 0.35 x10^3/uL (0.0-1.3); Monocytes % 4.5 % (0.0-12.0); Platelet Count 202 x10^3/uL (150-450); Red Blood Count 5.19 x10^6/uL (4.1-5.6); Red Cell Distribution Width 12.5 % (11.5-14.0); White Blood Count 7.7 x10^3/uL (4.0-10.5)
[2022-01-31 22:29] LABS: Appearance CLEAR (CLEAR); Bilirubin NEGATIVE (NEGATIVE); Glucose NEGATIVE (NEGATIVE); Ketones NEGATIVE (NEGATIVE); Nitrite NEGATIVE (NEGATIVE); Ph 8.5 (5-6); Protein,Urine Dip NEGATIVE (Negative); RBC TRACE-INTACT Ery/ul (0-5); Urobilinogen 1 mg/dL (0-1)
[2022-01-31 22:30] LABS: Dipstick done @ ? MAIN LAB
[2022-01-31 22:31] LABS: Urine Cultured Indicated? NO
[2022-01-31 22:33] LABS: ALBUMIN 4.9 g/dL (3.5-5.0); ALKALINE PHOSPHATASE 89 U/L (38-126); ANION GAP 9.7 MEQ/L (5-15); BLOOD UREA NITROGEN 12 mg/dL (9-20); CHLORIDE 101 mmol/L (98-107); Calcium 9.2 mg/dL (8.4-10.2); Carbon Dioxide 32 mmol/L (22-30); Creatinine 1 0.64 mg/dL (0.66-1.25); EST GLOMERULAR FILTRATION RATE > 60.0 ML/MIN; Glucose 126 mg/dL (74-106); LIPASE 44 U/L (23-300); Potassium 3.7 mmol/L (3.5-5.1); SGOT/AST 29 U/L (17-59); SGPT/ALT 38 U/L (0-50); SODIUM 138 mmol/L (137-145)
[2022-01-31 22:49] LABS: Amphetamine,Urine NEGATIVE (NEGATIVE); Barbiturate,Urine NEGATIVE (NEGATIVE); Benzodiazepine,Urine NEGATIVE (NEGATIVE); Cocaine,Urine NEGATIVE (NEGATIVE); Methadone,Urine NEGATIVE (NEGATIVE); Opiate,Urine NEGATIVE (NEGATIVE); PCP,Urine NEGATIVE (NEGATIVE); THC,Urine NEGATIVE (NEGATIVE)
--- NOTE | 2022-01-31 23:03 | ERPHSYRPT ---
- History of Present Illness Time Seen by Provider: 01/31/22 21:55 Historian: patient Exam Limitations: no limitations Patient Subjective Stated Complaint: abd pain Triage Nursing Assessment: pt brought in by ambulance, c/o abd pain to RLQ. Pt was seen in ER on Friday with CT scan and labs done. Pt states, "the pain has not gotten any better since Friday". Pt ate dinner at 5pm today and had a bm at 6:30 pm tonight. Pt denies any nausea, vomiting, diarrhea or ingestion. Abd soft with active bs x4 quad, tender to RLQ. Physician History: Patient 26-year-old male presents to emergency department via EMS for evaluation of abdominal pain. Patient was in our ED on Friday for the same. Patient had a CT Noncontrast study which was essentially nonremarkable. Patient states his pain has not gotten any better. No trauma. No fever. No nausea vomiting or diarrhea. Patient had a normal bowel movement today. Pain worsens somewhat after his meal. Patient is otherwise healthy. He denies a history of the same. He voices no other complaints or concerns at this time. Portions of this note were created with voice recognition technology. There may be grammatical, spelling, punctuation or sound alike errors Timing/Duration: day(s) (2 days) Activities at Onset: none Quality: aching Abdominal Pain Onset Location: periumbilical (Pain is just right to the periumbilical region.) Pain Radiation: no radiation Severity of Pain-Max: moderate Severity of Pain-Current: mild Modifying Factors: Improves With: other (Palpation worsens symptoms) Associated Symptoms: denies symptoms Previous symptoms: no prior history Allergies/Adverse Reactions: No Known Drug Allergies Allergy (Verified 01/31/22 21:53) Home Medications: No Reportable Medications [No Reported Medications] 01/31/22 [History] Hx Tetanus, Diphtheria Vaccination/Date Given: Yes Hx Influenza Vaccination/Date Given: No Hx Pneumococcal Vaccination/Date Given: No Travel Risk - International Travel Have you traveled outside of the country in past 3 weeks: No - Coronavirus Screening Are you exhibiting any of the following symptoms?: No Close contact with a COVID-19 positive Pt in past 14-21 Days: No - Vaccine Status Have you recieved a Covid-19 vaccination: Yes [employer]: Moderna - Vaccination Dates Date of 2cond Vaccination (if applicable): . - Review of Systems Constitutional: No Symptoms, No Fever, No Chills Eyes: No Symptoms Ears, Nose, & Throat: No Symptoms Respiratory: No Symptoms, No Cough, No Dyspnea Cardiac: No Symptoms, No Chest Pain, No Edema, No Syncope Abdominal/Gastrointestinal: No Symptoms, No Abdominal Pain, No Nausea, No Vomiting, No Diarrhea Genitourinary Symptoms: No Symptoms, No Dysuria Musculoskeletal: No Back Pain, No Neck Pain Skin: No Rash Neurological: No Dizziness, No Focal Weakness, No Sensory Changes Psychological: No Symptoms Endocrine: No Symptoms All Other Systems: Reviewed and Negative - Past Medical History Pertinent Past Medical History: Yes Neurological History: No Pertinent History ENT History: No Pertinent History Cardiac History: No Pertinent History, Hypertension Respiratory History: Asthma Endocrine Medical History: Hyperthyroidism, Other Musculoskeletal History: Arthritis GI Medical History: Stomach Cancer History: No Pertinent History Psycho-Social History: Anxiety, Depression, Panic Disorder Male Reproductive Disorders: No Pertinent History Other Medical History: 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 GRAVES DISEASe - Past Surgical History Past Surgical History: Yes Neuro Surgical History: No Pertinent History Cardiac: No Pertinent History Respiratory: No Pertinent History Gastrointestinal: Cholecystectomy Genitourinary: No Pertinent History Musculoskeletal: No Pertinent History Male Surgical History: No Pertinent History Other Surgical History: TONSILS - Social History Smoking Status: Current every day smoker How long have you smoked: 9yrs Exposure to second hand smoke: Yes Drug Use: none Patient Lives Alone: No Significant Family History: no pertinent family hx - Nursing Vital Signs Nursing Vital Signs: Initial Vital Signs Temperature 98.7 F 01/31/22 21:41 Pulse Rate 90 01/31/22 21:41 Respiratory Rate 20 01/31/22 21:41 Blood Pressure 125/76 01/31/22 21:41 O2 Sat by Pulse Oximetry 99 01/31/22 21:41 Pain Scale Pain Intensity 10 - Physical Exam General Appearance: no apparent distress, alert Eye Exam: PERRL/EOMI, eyes nml inspection Ears, Nose, Throat Exam: normal ENT inspection, pharynx normal, moist mucous membranes Neck Exam: normal inspection, non-tender, supple, full range of motion Respiratory Exam: normal breath sounds, lungs clear, airway intact, No respiratory distress Cardiovascular Exam: regular rate/rhythm, normal heart sounds, normal peripheral pulses Gastrointestinal/Abdomen Exam: soft, tenderness (Mild right periumbilical pain.), No mass Back Exam: normal inspection, normal range of motion, No CVA tenderness, No vertebral tenderness Extremity Exam: normal inspection, normal range of motion, pelvis stable Neurologic Exam: alert, oriented x 3, cooperative, normal mood/affect, nml cerebellar function, sensation nml, No motor deficits Skin Exam: normal color, warm, dry Lymphatic Exam: No adenopathy SpO2 Interpretation: normal SpO2: 99 O2 Delivery: Room Air - Course Nursing assessment & vital signs reviewed: Yes - CT Exams Abdomen/Pelvis CT Interpretation: Tele-radiologist Report (Mild splenomegaly, mild nonspecific bowel wall thickening of portions of the small bowel and colon.Unremarkable appendix.Mild nonspecific bowel wall thickening of portions of the small bowel and colon please exclude enterocolitis) Ordered Tests: Active Orders 24 hr Category Date Time Status Clean Catch Urine Specimen STAT Care 01/31/22 22:29 Active IV Insertion STAT Care 01/31/22 21:58 Active ABDOMEN AND PELVIS W CONTRAST [CT] Stat Exams 01/31/22 22:35 Taken CBC W DIFF Stat Lab 01/31/22 22:00 Completed CMP Stat Lab 01/31/22 22:00 Completed LIPASE Stat Lab 01/31/22 22:00 Completed TROPONIN Q4H Lab 01/31/22 22:00 Completed TROPONIN Q4H Lab 02/01/22 02:00 Ordered TROPONIN Q4H Lab 02/01/22 06:00 Ordered UA W/RFX CULTURE Stat Lab 01/31/22 22:14 Completed Urine Triage Profile Stat Lab 01/31/22 22:29 Completed Medication Summary Discontinued Medications Generic Name Dose Route Start Last Admin Trade Name Felix PRN Reason Stop Dose Admin Sodium Chloride 1,000 mls @ 999 mls/hr 01/31/22 21:58 01/31/22 22:04 Sodium Chloride 0.9% 1000 Ml IV 01/31/22 22:58 999 mls/hr .Q1H1M STA Administration Sodium Chloride Confirm 01/31/22 22:03 Sodium Chloride 0.9% 1000 Ml Administered 01/31/22 22:04 Dose 1,000 mls @ ud .ROUTE .STK-MED ONE Ketorolac Tromethamine 30 mg 01/31/22 21:58 01/31/22 22:04 Ketorolac Tromethamine 30 Mg/Ml Inj IV 01/31/22 21:59 30 mg STAT ONE Administration Ketorolac Tromethamine Confirm 01/31/22 22:03 Ketorolac Tromethamine 30 Mg/Ml Inj Administered 01/31/22 22:04 Dose 30 mg .ROUTE .STK-MED ONE Lab/Rad Data: Laboratory Result Diagrams 01/31/22 22:00 01/31/22 22:00 Laboratory Results 01/31/22 01/31/22 01/31/22 Range/Units 22:29 22:14 22:00 WBC (4.0-10.5) x10^3/uL RBC (4.1-5.6) x10^6/uL Hgb (12.5-18.0) g/dL Hct (42-50) % MCV (78-100) fL MCH (26-32) pg MCHC (32-36) g/dL RDW (11.5-14.0) % Plt Count (150-450) x10^3/uL MPV (7.5-11.0) fL Gran % (36.0-66.0) % Immature Gran % (Auto) (0.00-0.4) % Nucleat RBC Rel Count (0.00-0.1) % Eos # (Auto) (0-0.5) x10^3/uL Immature Gran # (Auto) (0.00-0.03) x10^3u/L Absolute Lymphs (auto) (1.0-4.6) x10^3/uL Absolute Monos (auto) (0.0-1.3) x10^3/uL Absolute Nucleated RBC (0.00-0.01) x10^3u/L Lymphocytes % (24.0-44.0) % Monocytes % (0.0-12.0) % Eosinophils % (0.00-5.0) % Basophils % (0.0-0.4) % Absolute Granulocytes (1.4-6.9) x10^3/uL Basophils # (0-0.4) x10^3/uL Sodium (137-145) mmol/L Potassium (3.5-5.1) mmol/L Chloride (98-107) mmol/L Carbon Dioxide (22-30) mmol/L Anion Gap (5-15) MEQ/L BUN (9-20) mg/dL Creatinine (0.66-1.25) mg/dL Estimated GFR ML/MIN Glucose (74-106) mg/dL Calcium (8.4-10.2) mg/dL Total Bilirubin (0.2-1.3) mg/dL AST (17-59) U/L ALT (0-50) U/L Alkaline Phosphatase (38-126) U/L Troponin I < 0.012 (0.000-0.034) ng/mL Serum Total Protein (6.3-8.2) g/dL Albumin (3.5-5.0) g/dL Lipase (23-300) U/L Urinalys Dipstick Clnc MAIN LAB Urine Color YELLOW (YELLOW) Urine Appearance CLEAR (CLEAR) Urine pH 8.5 A (5-6) Ur Specific [place] 1.020 (1.005-1.025) POC Urine Protein Conf NEGATIVE (Negative) Urine Ketones NEGATIVE (NEGATIVE) Urine Nitrite NEGATIVE (NEGATIVE) Urine Bilirubin NEGATIVE (NEGATIVE) Urine Urobilinogen 1 A (0-1) mg/dL Urine Leukocytes NEGATIVE (NEGATIVE) Urine WBC (Auto) NONE (0-5) /HPF Urine RBC (Auto) 3-5 A (0-2) /HPF U Epithel Cells (Auto) NONE (FEW) /HPF Urine Bacteria (Auto) NONE (NEGATIVE) /HPF Urine RBC TRACE-INTACT A (0-5) Heriberto/ul Ur Culture Indicated? NO Urine Glucose NEGATIVE (NEGATIVE) mg/dL Urine Opiates Level NEGATIVE (NEGATIVE) Ur Methadone NEGATIVE (NEGATIVE) Urine Barbiturates NEGATIVE (NEGATIVE) Ur Phencyclidine (PCP) NEGATIVE (NEGATIVE) Urine Amphetamine NEGATIVE (NEGATIVE) U Benzodiazepine Level NEGATIVE (NEGATIVE) Urine Cocaine NEGATIVE (NEGATIVE) Urine Marijuana (THC) NEGATIVE (NEGATIVE) 01/31/22 01/31/22 Range/Units 22:00 22:00 WBC 7.7 (4.0-10.5) x10^3/uL RBC 5.19 (4.1-5.6) x10^6/uL Hgb 15.6 (12.5-18.0) g/dL Hct 47.6 (42-50) % MCV 91.7 (78-100) fL MCH 30.1 (26-32) pg MCHC 32.8 (32-36) g/dL RDW 12.5 (11.5-14.0) % Plt Count 202 (150-450) x10^3/uL MPV 9.0 (7.5-11.0) fL Gran % 75.0 H (36.0-66.0) % Immature Gran % (Auto) 0.3 (0.00-0.4) % Nucleat RBC Rel Count 0.0 (0.00-0.1) % Eos # (Auto) 0.05 (0-0.5) x10^3/uL Immature Gran # (Auto) 0.02 (0.00-0.03) x10^3u/L Absolute Lymphs (auto) 1.48 (1.0-4.6) x10^3/uL Absolute Monos (auto) 0.35 (0.0-1.3) x10^3/uL Absolute Nucleated RBC 0.00 (0.00-0.01) x10^3u/L Lymphocytes % 19.1 L (24.0-44.0) % Monocytes % 4.5 (0.0-12.0) % Eosinophils % 0.6 (0.00-5.0) % Basophils % 0.5 (0.0-0.4) % Absolute Granulocytes 5.80 (1.4-6.9) x10^3/uL Basophils # 0.04 (0-0.4) x10^3/uL Sodium 138 (137-145) mmol/L Potassium 3.7 (3.5-5.1) mmol/L Chloride 101 (98-107) mmol/L Carbon Dioxide 32 H (22-30) mmol/L Anion Gap 9.7 (5-15) MEQ/L BUN 12 (9-20) mg/dL Creatinine 0.64 L (0.66-1.25) mg/dL Estimated GFR > 60.0 ML/MIN Glucose 126 H (74-106) mg/dL Calcium 9.2 (8.4-10.2) mg/dL Total Bilirubin 0.70 (0.2-1.3) mg/dL AST 29 (17-59) U/L ALT 38 (0-50) U/L Alkaline Phosphatase 89 (38-126) U/L Troponin I (0.000-0.034) ng/mL Serum Total Protein 8.0 (6.3-8.2) g/dL Albumin 4.9 (3.5-5.0) g/dL Lipase 44 (23-300) U/L Urinalys Dipstick Clnc Urine Color (YELLOW) Urine Appearance (CLEAR) Urine pH (5-6) Ur Specific [place] (1.005-1.025) POC Urine Protein Conf (Negative) Urine Ketones (NEGATIVE) Urine Nitrite (NEGATIVE) Urine Bilirubin (NEGATIVE) Urine Urobilinogen (0-1) mg/dL Urine Leukocytes (NEGATIVE) Urine WBC (Auto) (0-5) /HPF Urine RBC (Auto) (0-2) /HPF U Epithel Cells (Auto) (FEW) /HPF Urine Bacteria (Auto) (NEGATIVE) /HPF Urine RBC (0-5) Heriberto/ul Ur Culture Indicated? Urine Glucose (NEGATIVE) mg/dL Urine Opiates Level (NEGATIVE) Ur Methadone (NEGATIVE) Urine Barbiturates (NEGATIVE) Ur Phencyclidine (PCP) (NEGATIVE) Urine Amphetamine (NEGATIVE) U Benzodiazepine Level (NEGATIVE) Urine Cocaine (NEGATIVE) Urine Marijuana (THC) (NEGATIVE) - Progress Progress: improved Progress Note: Patient reassessed. Pain improved but not completely resolved. Work-up reveals an enterocolitis. No indication for antibiotics at this time. Patient will be discharged home. He will change his diet to a clear liquid diet. No solids for the next 3 to 4 days. Patient has an appointment scheduled with Dr. Hebert. I discussed the case with Dr. Hebert who agrees with disposition. Patient voices no other complaints concerns at this time. Portions of this note were created with voice recognition technology. There may be grammatical, spelling, punctuation or sound alike errors 02/01/22 00:12 Counseled pt/family regarding: lab results, diagnosis, need for follow-up, rad results - Departure Departure Disposition: Home Clinical Impression: Enterocolitis Condition: Stable Critical Care Time: No Referrals: JUSTIN HEBERT MD [Primary Care Provider] - Follow up/PCP as directed Additional Instructions: Discharge/Care Plan KIMJUSTIN MATA was seen on 01/31/22 in the Emergency Room. The patient was counseled regarding Diagnosis,Lab results, Imaging studies, need for follow up and when to return to the Emergency Room. Prescriptions given: Discharge Note I have spoken with the patient and/or caregivers. I have explained the patient's condition, diagnosis and treatment plan based on the information available to me at this time. I have answered the patient's and/or caregiver's questions and addressed any concerns. The patient and/or caregivers have as good understanding of the patient's diagnosis, condition and treatment plan as can be expected at this point. The vital signs have been stable. The patient's condition is stable and appropriate for discharge from the emergency department. The patient will pursue further outpatient evaluation with the primary care physician or other designated or consulting physician as outlined in the discharge instructions. The patient and/or caregivers are agreeable to this plan of care and follow-up instructions have been explained in detail. The patient and/or caregivers have received these instruction. The patient/and or caregivers are aware that any significant change in condition or worsening of symptoms should prompt an immediate return to this or the closest emergency department or call 911.
[2022-02-01] MEDS ORDERED: MORPHINE SULFATE 4 MG INJ IV ONE (00:11)
[2022-02-01] MEDS ORDERED: MORPHINE SULFATE 4 MG INJ ONE (00:14)
[2022-02-01 00:20] VITALS: BP 122/78; PULSE 70
--- NOTE | 2022-02-01 09:20 | XRAY ---
Exam: CT of the abdomen and pelvis with IV contrast from 01/31/2022. CTDI: 4.97 mGy Comparison: CT of the abdomen and pelvis without IV contrast from 01/29/2022. Indication: 26-year-old male with persistent right lower quadrant abdominal pain; constipation; history of prior appendectomy. Technique: Post-IV contrast axial images were obtained through the abdomen and pelvis during automated injection of 80 cc of nonionic Isovue 370 contrast material. Reconstructed coronal and sagittal images were created and reviewed. Findings: The lung bases reveal minimal posterior dependent compression atelectatic changes within the posterior lung sulci tips. Otherwise, the lung bases appear clear. The heart size is normal. The liver appears of normal size and uniform attenuation. No hepatic mass or intrahepatic biliary duct distention is seen. Surgical clips are seen within the subhepatic space consistent with prior cholecystectomy. The common bile duct does not appear distended. The spleen is mildly enlarged measuring about 14.1 cm in greatest craniocaudal dimension on coronal image #76. This represents no significant change. No splenic mass is seen. The pancreas and adrenal glands appear unremarkable. The kidneys are of normal size and shape. No renal calculi or hydronephrosis is seen. There is normal cortical medullary differentiation on the portal venous postcontrast images. Both kidneys function on delayed images. No renal mass is seen. The ureters reveal no abnormal dilation or ureterolith. The abdominal aorta is of normal diameter (no aneurysm). A few shotty periaortic lymph nodes are again seen representing no significant change. No pathologic lymphadenopathy is seen. There is no evidence of free intraperitoneal air or ventral abdominal wall hernia. I see no abnormal bowel distention. Some scattered stool is seen throughout the colon. There is equivocal evidence of mild nonspecific bowel wall thickening of portions of the small bowel and colon. The terminal ileum within the right lower quadrant appears unremarkable which would speak against Crohn's disease. A small amount of air and fecal debris is seen within a normal diameter appendix on coronal images #55 through #58. There is no evidence of appendicitis. The pelvis reveals no suspicious mass, abnormal lymphadenopathy, or free fluid. The urinary bladder is mostly empty. The seminal vesicles and prostate gland appear unremarkable. The skeleton reveals no acute fracture or aggressive osseous process. There is again a slight levoscoliosis centered at L4-L5. Inferior to L5, there is a transitional vertebra at the lumbosacral junction with asymmetric enlargement of the right transverse process of the transitional vertebra which appears fused with the upper right side of the sacrum. This represents a developmental variant. The sacroiliac joints and hip joint spaces appear unremarkable. Impression: 1. There is no CT evidence to suggest appendicitis. 2. Questionable mild nonspecific bowel wall thickening within portions of the small bowel and colon. Consider enterocolitis. Incidentally, the terminal ileum within the right lower quadrant appears essentially unremarkable on coronal images #53 through #61. 3. Status post cholecystectomy, mild splenomegaly, and chronic bone findings are unchanged. 4. No other acute process is seen within the abdomen or pelvis.
== END 2022-02-01 00:32 | disposition home or self-care (01) ==
LOC: ED 21:39
DX: K52.9 Noninfective gastroenteritis and colitis, unspecified (principal); R10.33 Periumbilical pain; I10 Essential (primary) hypertension; Z72.0 Tobacco use
CPT/HCPCS: 36000; 36415; 74177; 80053; 80307; 81015; 83690; 84484; 85025; 96374; 96375; 99284; J1885; J2270

== ENCOUNTER 2022-03-19 03:29 | Emergency (ER) | payer OTHER ==
[2022-03-19 03:35] VITALS: O2SAT 94
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
[2022-03-19 04:25] VITALS: BP 151/101; PULSE 100
[2022-03-19 04:30] LABS: ALBUMIN 4.5 g/dL (3.5-5.0); ALKALINE PHOSPHATASE 99 U/L (38-126); ANION GAP 10.9 MEQ/L (5-15); BLOOD UREA NITROGEN 8 mg/dL (9-20); CHLORIDE 104 mmol/L (98-107); Calcium 8.9 mg/dL (8.4-10.2); Carbon Dioxide 26 mmol/L (22-30); Creatinine 1 0.61 mg/dL (0.66-1.25); EST GLOMERULAR FILTRATION RATE > 60.0 ML/MIN; Glucose 128 mg/dL (74-106); Potassium 3.2 mmol/L (3.5-5.1); SGOT/AST 21 U/L (17-59); SGPT/ALT 17 U/L (0-50); SODIUM 138 mmol/L (137-145); Total Protein 7.3 g/dL (6.3-8.2)
[2022-03-19 04:31] LABS: Basophil (Absolute #) 0.03 x10^3/uL (0-0.4); Eosinophil % 0.2 % (0.00-5.0); Eosinophil (Absolute #) 0.02 x10^3/uL (0-0.5); Hematocrit 45.3 % (42-50); Hemoglobin 15.3 g/dL (12.5-18.0); Lymphocyte (Absolute #) 1.06 x10^3/uL (1.0-4.6); Lymphocytes % 12.2 % (24.0-44.0); Mean Cell Volume 89.3 fL (78-100); Mean Corpuscular Hemoglobin 30.2 pg (26-32); Mean Corpuscular Hgb Concent. 33.8 g/dL (32-36); Mean Platelet Volume 9.1 fL (7.5-11.0); Monocyte (Absolute #) 0.53 x10^3/uL (0.0-1.3); Monocytes % 6.1 % (0.0-12.0); Neutrophil % 80.7 % (36.0-66.0); Platelet Count 212 x10^3/uL (150-450); Red Blood Count 5.07 x10^6/uL (4.1-5.6); Red Cell Distribution Width 13.1 % (11.5-14.0); White Blood Count 8.7 x10^3/uL (4.0-10.5)
--- NOTE | 2022-03-19 08:50 | XRAY ---
Indication: Chest pain. Comparison: February 18, 2021 Portable chest remains hyperinflated and clear. Heart and mediastinal structures within normal limits. Bony thorax intact. Impression: Continued nonacute hyperinflated chest.
== END 2022-03-19 04:43 | disposition left against medical advice (07) ==
LOC: ED 03:29
DX: F43.0 Acute stress reaction (principal); F41.9 Anxiety disorder, unspecified; R07.9 Chest pain, unspecified; R42 Dizziness and giddiness; I10 Essential (primary) hypertension; Z72.0 Tobacco use
CPT/HCPCS: 36415; 71045; 80053; 84484; 85025; 85379; 93005; 93041; 94760; 99283

== ENCOUNTER 2022-04-07 00:05 | Emergency (ER) | payer OTHER ==
[2012-03-05 21:13] VITALS: BP 104/65
[2022-04-07] MEDS ORDERED: Keppra 500 MG/5 ML*** 1,000 MG in D5w 100ML Mini Bag 100 ML 100 ML IV ONE (00:21)
[2022-04-07] MEDS ORDERED: Ativan 2 MG/1 ML VIAL IV ONE (00:21)
[2022-04-07] MEDS ORDERED: Sodium Chloride 0.9% 1000 ML 1,000 ML IV STA (00:21)
== END 2022-04-07 00:15 | disposition home or self-care (01) ==
LOC: ED 00:05
DX: Z53.21 Procedure and treatment not carried out due to patient leaving prior to being seen by health care provider (principal)

== ENCOUNTER 2024-12-26 17:41 | Emergency (ER) | payer OTHER ==
[2024-12-26 17:52] VITALS: RESP 16; TEMP 97.2
--- NOTE | 2024-12-26 18:07 | ERPHSYRPT ---
- History of Present Illness Time Seen by Provider: 12/26/24 17:57 Source: patient Exam Limitations: no limitations Patient Subjective Stated Complaint: PT HERE FOR INCONT OF URINE NIGHTLY FOR LAST 3 DAYS NOW, HE STATES HE USE TO HAVE THIS PROBLEM A TEENAGER. PT IS NOT TAKING IN MEDICATION AT THIS TIME. HE IS WORRIED IT IS HE'S GRAVES DISEASE.PT ALSO REPORTS HE HAS BEEN MORE TRIED LATELY Triage Nursing Assessment: PT ALERT, WALKED IN, RESP EASY, SKIN W/D/P. MOVES ALL EXT WELL, NO EDEMA NOTED, ABD SOFT. NONTENDER. UNABLE TO VOID AT THIS TIME Physician History: Patient is here with urinary incontinence at night. Patient states he has a history of Graves' disease. He states that this is a byproduct of his untreated Graves' disease. Patient states that he had these symptoms the last time that he is Graves' disease was flaring. Patient has been completely untreated for over 3 years. He states that he has a primary care doctor in [place]. But he has never been given prescriptions for Graves' disease medication. He is unsure of what medication he was on in the past. He has no chest pain, shortness of breath, fever, chills. He is otherwise in his normal state of health. When asked why he does not follow-up with his primary care doctor he states "I just do not have time". Patient is taking PO well. Same number of urinations and defecations. The patient has no signs of altered mental status, nuchal rigidity, signs of meningitis. The patient is up-to-date on all vaccinations. Allergies/Adverse Reactions: No Known Drug Allergies Allergy (Verified 12/26/24 17:49) Home Medications: No Reportable Medications [No Reported Medications] 12/26/24 [History] Hx Tetanus, Diphtheria Vaccination/Date Given: No Hx Influenza Vaccination/Date Given: No Hx Pneumococcal Vaccination/Date Given: No Immunizations Up to Date: Yes Travel Risk - International Travel Have you traveled outside of the country in past 3 weeks: No - Emerging Infectious Disease Are you exhibiting symptoms associated with any current EIDs: No - Past Medical History Pertinent Past Medical History: Yes Neurological History: No Pertinent History ENT History: No Pertinent History Cardiac History: No Pertinent History, Hypertension Respiratory History: Asthma Endocrine Medical History: Hyperthyroidism, Other Musculoskeletal History: Arthritis GI Medical History: Stomach Cancer History: No Pertinent History Psycho-Social History: Anxiety, Depression, Panic Disorder Male Reproductive Disorders: No Pertinent History Other Medical History: 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 GRAVES DISEASe - Past Surgical History Past Surgical History: Yes Neuro Surgical History: No Pertinent History Cardiac: No Pertinent History Respiratory: No Pertinent History Gastrointestinal: Cholecystectomy Genitourinary: No Pertinent History Musculoskeletal: No Pertinent History Male Surgical History: No Pertinent History Other Surgical History: TONSILS. left knee Significant Family History: no pertinent family hx - Social History Smoking Status: Current every day smoker Exposure to second hand smoke: Yes Drug Use: none - Social Determinants of Health Will the patient participate in the screening: Declined to provide - Nursing Vital Signs Nursing Vital Signs: Initial Vital Signs Temperature 97.2 F 12/26/24 17:51 Pulse Rate 76 12/26/24 17:51 Respiratory Rate 16 12/26/24 17:51 Blood Pressure 113/81 12/26/24 17:51 O2 Sat by Pulse Oximetry 99 12/26/24 17:51 Pain Scale Pain Intensity 0 - Physical Exam SpO2: 99 Comments: 12/26/24 18:06 Review of Systems Constitutional: Negative for fever. HENT: Negative for congestion. Respiratory: Negative for shortness of breath. Cardiovascular: Negative for chest pain. Gastrointestinal: Negative for abdominal pain. Genitourinary: Negative for dysuria. Musculoskeletal: Negative for back pain. Skin: Negative for rash. Neurological: Negative for headaches. Psychiatric/Behavioral: Negative for behavioral problems. All other systems reviewed and are negative. Physical Exam Vitals signs and nursing note reviewed. Constitutional: Appearance: Patient is well-developed. HENT: Head: Normocephalic and atraumatic. Eyes: Conjunctiva/sclera: Conjunctivae normal. Neck: Musculoskeletal: Normal range of motion. Trachea: No tracheal deviation. Cardiovascular: Rate and Rhythm: Normal rate. Heart sounds normal. Pulmonary: Effort: Pulmonary effort is normal. No respiratory distress. Abdominal: Palpations: Abdomen is soft. Musculoskeletal: General: No deformity. Skin: General: Skin is warm and dry. Neurological/ Psychiatric: Mental Status: Mental status, behavior, interaction with environment is appropriate for patient's age and condition - Course Nursing assessment & vital signs reviewed: Yes Ordered Tests: Active Orders 24 hr Category Date Time Status IV Insertion STAT Care 12/26/24 17:59 Completed CBC W DIFF Stat Lab 12/26/24 18:15 Completed CMP Stat Lab 12/26/24 18:15 Received CULTURE,URINE Stat Lab 12/26/24 18:34 Received LIPASE Stat Lab 12/26/24 18:15 Received TSH [TSH, 3RD Generation] Stat Lab 12/26/24 18:15 Received UA W/RFX UR CULTURE Stat Lab 12/26/24 18:34 Completed Lab/Rad Data: Laboratory Result Diagrams 12/26/24 18:15 Laboratory Results 12/26/24 12/26/24 Range/Units 18:34 18:15 WBC 7.6 (4.23-9.07) x10^3/uL RBC 4.63 (4.63-6.08) x10^6/uL Hgb 14.4 (13.7-17.5) g/dL Hct 43.6 (40.1-51.0) % MCV 94.2 H (79.0-92.2) fL MCH 31.1 (25.7-32.2) pg MCHC 33.0 (32.3-36.5) g/dL RDW 12.4 (11.6-14.4) % Plt Count 195 (163-337) x10^3/uL MPV 8.9 L (9.4-12.4) fL Gran % 69.7 H (34.0-67.9) % Immature Gran % (Auto) 0.3 (0.001-0.429) % Nucleat RBC Rel Count 0.0 (0.00-0.2) % Eos # (Auto) 0.10 (0.04-0.54) x10^3/uL Immature Gran # (Auto) 0.02 (0.001-0.031) x10^3u/L Absolute Lymphs (auto) 1.79 (1.32-3.57) x10^3/uL Absolute Monos (auto) 0.34 (0.30-0.82) x10^3/uL Absolute Nucleated RBC 0.00 (0.00-0.012) x10^3u/L Lymphocytes % 23.5 (21.8-53.1) % Monocytes % 4.5 L (5.3-12.2) % Eosinophils % 1.3 (0.8-7.0) % Basophils % 0.7 (0.2-1.2) % Absolute Granulocytes 5.32 (1.78-5.38) x10^3/uL Basophils # 0.05 (0.01-0.08) x10^3/uL Urine Color Yellow (Yellow) Urine Appearance Clear (Clear) Urine pH 6.5 (4.6-8.0) Ur Specific [place] >=1.030 A (1.005-1.030) Urine Protein Negative (Negative) Urine Glucose (UA) Negative (Negative) mg/dL Urine Ketones Negative (Negative) Urine Blood Negative (Negative) Urine Nitrite Negative (Negative) Urine Bilirubin Negative (Negative) Urine Urobilinogen 1.0 A (0.2) mg/dL Ur Leukocyte Esterase Negative (Negative) U Hyaline Cast (Auto) NONE SEEN (0-2) /LPF Urine Microscopic RBC 3-5 (0-5) /HPF Urine Microscopic WBC 0-2 (0-5) /HPF Ur Epithelial Cells None Seen (None Seen) /HPF Urine Bacteria None Seen (None Seen) /HPF Urine Culture Reflexed NO (NO) - Progress Progress: improved Progress Note: 12/26/24 18:07 Differential diagnosis includes UTI, other infection, patient does not believe that he has an STI. Patient may be having Graves' disease flare given that he is untreated. Plan for basic labs, TSH, T4. We likely would not start patient on treatment tonight. However, these will be helpful for his primary care doctor. He will need to see his primary care doctor this week. 12/26/24 18:51 Transfer of care to Dr. Rao at 7 PM. He will follow-up on all labs and imaging. Ultimate disposition per his reexam. Counseled pt/family regarding: lab results, diagnosis, need for follow-up - Departure Clinical Impression: Bladder incontinence Condition: Stable Critical Care Time: No Referrals: JUSTIN HEBERT MD [Primary Care Provider, [facility]] - Follow up/PCP as directed
[2024-12-26 18:17] LABS: BASOPHIL % 0.7 % (0.2-1.2); Basophil (Absolute #) 0.05 x10^3/uL (0.01-0.08); Eosinophil (Absolute #) 0.10 x10^3/uL (0.04-0.54); Hematocrit 43.6 % (40.1-51.0); Hemoglobin 14.4 g/dL (13.7-17.5); IMMATURE GRAN # 0.02 x10^3u/L (0.001-0.031); IMMATURE GRAN % 0.3 % (0.001-0.429); Lymphocyte (Absolute #) 1.79 x10^3/uL (1.32-3.57); Mean Corpuscular Hemoglobin 31.1 pg (25.7-32.2); Mean Corpuscular Hgb Concent. 33.0 g/dL (32.3-36.5); Monocyte (Absolute #) 0.34 x10^3/uL (0.30-0.82); NUCLEATED RBC # 0.00 x10^3u/L (0.00-0.012); NUCLEATED RBC % 0.0 % (0.00-0.2); Platelet Count 195 x10^3/uL (163-337); Red Blood Count 4.63 x10^6/uL (4.63-6.08); White Blood Count 7.6 x10^3/uL (4.23-9.07)
[2024-12-26 18:43] LABS: Glucose, Urine Negative (Negative); Protein,Urine Dip Negative (Negative); WBC 0-2 /HPF (0-5)
[2024-12-26 18:52] VITALS: O2SAT 99
[2024-12-26 18:57] VITALS: PULSE 75
[2024-12-26 19:01] LABS: Calcium 9.0 mg/dL (8.4-10.2); Carbon Dioxide 28.0 mmol/L (22-30); Creatinine 1 1.02 mg/dL (0.66-1.25); EST GLOMERULAR FILTRATION RATE 103.3 ML/MIN; Glucose 105.0 mg/dL (74-106); Potassium 4.0 mmol/L (3.5-5.1); SGOT/AST 24.0 U/L (17-59); SGPT/ALT 35.0 U/L (0-50); Total Protein 7.9 g/dL (6.3-8.2)
--- NOTE | 2024-12-26 20:06 | ERPHSYRPT ---
- History of Present Illness Time Seen by Provider: 12/26/24 17:57 Patient Subjective Stated Complaint: PT HERE FOR INCONT OF URINE NIGHTLY FOR LAST 3 DAYS NOW, HE STATES HE USE TO HAVE THIS PROBLEM A TEENAGER. PT IS NOT TAKING IN MEDICATION AT THIS TIME. HE IS WORRIED IT IS HE'S GRAVES DISEASE.PT ALSO REPORTS HE HAS BEEN MORE TRIED LATELY Triage Nursing Assessment: PT ALERT, WALKED IN, RESP EASY, SKIN W/D/P. MOVES ALL EXT WELL, NO EDEMA NOTED, ABD SOFT. NONTENDER. UNABLE TO VOID AT THIS TIME Allergies/Adverse Reactions: No Known Drug Allergies Allergy (Verified 12/26/24 17:49) Home Medications: No Reportable Medications [No Reported Medications] 12/26/24 [History] Hx Tetanus, Diphtheria Vaccination/Date Given: No Hx Influenza Vaccination/Date Given: No Hx Pneumococcal Vaccination/Date Given: No Immunizations Up to Date: Yes Travel Risk - International Travel Have you traveled outside of the country in past 3 weeks: No - Emerging Infectious Disease Are you exhibiting symptoms associated with any current EIDs: No - Past Medical History Pertinent Past Medical History: Yes Neurological History: No Pertinent History ENT History: No Pertinent History Cardiac History: No Pertinent History, Hypertension Respiratory History: Asthma Endocrine Medical History: Hyperthyroidism, Other Musculoskeletal History: Arthritis GI Medical History: Stomach Cancer History: No Pertinent History Psycho-Social History: Anxiety, Depression, Panic Disorder Male Reproductive Disorders: No Pertinent History Other Medical History: 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 GRAVES DISEASe - Past Surgical History Past Surgical History: Yes Neuro Surgical History: No Pertinent History Cardiac: No Pertinent History Respiratory: No Pertinent History Gastrointestinal: Cholecystectomy Genitourinary: No Pertinent History Musculoskeletal: No Pertinent History Male Surgical History: No Pertinent History Other Surgical History: TONSILS. left knee Significant Family History: no pertinent family hx - Social History Smoking Status: Current every day smoker Exposure to second hand smoke: Yes Drug Use: none - Social Determinants of Health Will the patient participate in the screening: Declined to provide - Nursing Vital Signs Nursing Vital Signs: Initial Vital Signs Temperature 97.2 F 12/26/24 17:51 Pulse Rate 76 12/26/24 17:51 Respiratory Rate 16 12/26/24 17:51 Blood Pressure 113/81 12/26/24 17:51 O2 Sat by Pulse Oximetry 99 12/26/24 17:51 Pain Scale Pain Intensity 0 - Physical Exam SpO2 Interpretation: normal SpO2: 99 Ordered Tests: Active Orders 24 hr Category Date Time Status IV Insertion STAT Care 12/26/24 17:59 Completed CBC W DIFF Stat Lab 12/26/24 18:15 Completed CMP Stat Lab 12/26/24 18:15 Completed CULTURE,URINE Stat Lab 12/26/24 18:34 Received LIPASE Stat Lab 12/26/24 18:15 Completed TSH [TSH, 3RD Generation] Stat Lab 12/26/24 18:15 Completed UA W/RFX UR CULTURE Stat Lab 12/26/24 18:34 Completed Lab/Rad Data: Laboratory Result Diagrams 12/26/24 18:15 12/26/24 18:15 Laboratory Results 12/26/24 12/26/24 12/26/24 Range/Units 18:34 18:15 18:15 WBC (4.23-9.07) x10^3/uL RBC (4.63-6.08) x10^6/uL Hgb (13.7-17.5) g/dL Hct (40.1-51.0) % MCV (79.0-92.2) fL MCH (25.7-32.2) pg MCHC (32.3-36.5) g/dL RDW (11.6-14.4) % Plt Count (163-337) x10^3/uL MPV (9.4-12.4) fL Gran % (34.0-67.9) % Immature Gran % (Auto) (0.001-0.429) % Nucleat RBC Rel Count (0.00-0.2) % Eos # (Auto) (0.04-0.54) x10^3/uL Immature Gran # (Auto) (0.001-0.031) x10^3u/L Absolute Lymphs (auto) (1.32-3.57) x10^3/uL Absolute Monos (auto) (0.30-0.82) x10^3/uL Absolute Nucleated RBC (0.00-0.012) x10^3u/L Lymphocytes % (21.8-53.1) % Monocytes % (5.3-12.2) % Eosinophils % (0.8-7.0) % Basophils % (0.2-1.2) % Absolute Granulocytes (1.78-5.38) x10^3/uL Basophils # (0.01-0.08) x10^3/uL Sodium 141 (135-145) mmol/L Potassium 4.0 (3.5-5.1) mmol/L Chloride 102 (98-107) mmol/L Carbon Dioxide 28 (22-30) mmol/L Anion Gap 14.8 (5-15) MEQ/L BUN 13 (9-20) mg/dL Creatinine 1.02 (0.66-1.25) mg/dL Estimated GFR 103.3 ML/MIN Glucose 105 (74-106) mg/dL Calcium 9.0 (8.4-10.2) mg/dL Total Bilirubin 0.50 (0.2-1.3) mg/dL AST 24 (17-59) U/L ALT 35 (0-50) U/L Alkaline Phosphatase 66 (38-126) U/L Serum Total Protein 7.9 (6.3-8.2) g/dL Albumin 4.8 (3.5-5.0) g/dL Lipase 83 (23-300) U/L Free T4 1.09 (0.78-2.19) ng/dL TSH 3rd Generation 0.332 L (0.470-4.680) mIU/L Urine Color Yellow (Yellow) Urine Appearance Clear (Clear) Urine pH 6.5 (4.6-8.0) Ur Specific [place] >=1.030 A (1.005-1.030) Urine Protein Negative (Negative) Urine Glucose (UA) Negative (Negative) mg/dL Urine Ketones Negative (Negative) Urine Blood Negative (Negative) Urine Nitrite Negative (Negative) Urine Bilirubin Negative (Negative) Urine Urobilinogen 1.0 A (0.2) mg/dL Ur Leukocyte Esterase Negative (Negative) U Hyaline Cast (Auto) NONE SEEN (0-2) /LPF Urine Microscopic RBC 3-5 (0-5) /HPF Urine Microscopic WBC 0-2 (0-5) /HPF Ur Epithelial Cells None Seen (None Seen) /HPF Urine Bacteria None Seen (None Seen) /HPF Urine Culture Reflexed NO (NO) 12/26/ Range/Units 18:15 WBC 7.6 (4.23-9.07) x10^3/uL RBC 4.63 (4.63-6.08) x10^6/uL Hgb 14.4 (13.7-17.5) g/dL Hct 43.6 (40.1-51.0) % MCV 94.2 H (79.0-92.2) fL MCH 31.1 (25.7-32.2) pg MCHC 33.0 (32.3-36.5) g/dL RDW 12.4 (11.6-14.4) % Plt Count 195 (163-337) x10^3/uL MPV 8.9 L (9.4-12.4) fL Gran % 69.7 H (34.0-67.9) % Immature Gran % (Auto) 0.3 (0.001-0.429) % Nucleat RBC Rel Count 0.0 (0.00-0.2) % Eos # (Auto) 0.10 (0.04-0.54) x10^3/uL Immature Gran # (Auto) 0.02 (0.001-0.031) x10^3u/L Absolute Lymphs (auto) 1.79 (1.32-3.57) x10^3/uL Absolute Monos (auto) 0.34 (0.30-0.82) x10^3/uL Absolute Nucleated RBC 0.00 (0.00-0.012) x10^3u/L Lymphocytes % 23.5 (21.8-53.1) % Monocytes % 4.5 L (5.3-12.2) % Eosinophils % 1.3 (0.8-7.0) % Basophils % 0.7 (0.2-1.2) % Absolute Granulocytes 5.32 (1.78-5.38) x10^3/uL Basophils # 0.05 (0.01-0.08) x10^3/uL Sodium (135-145) mmol/L Potassium (3.5-5.1) mmol/L Chloride (98-107) mmol/L Carbon Dioxide (22-30) mmol/L Anion Gap (5-15) MEQ/L BUN (9-20) mg/dL Creatinine (0.66-1.25) mg/dL Estimated GFR ML/MIN Glucose (74-106) mg/dL Calcium (8.4-10.2) mg/dL Total Bilirubin (0.2-1.3) mg/dL AST (17-59) U/L ALT (0-50) U/L Alkaline Phosphatase (38-126) U/L Serum Total Protein (6.3-8.2) g/dL Albumin (3.5-5.0) g/dL Lipase (23-300) U/L Free T4 (0.78-2.19) ng/dL TSH 3rd Generation (0.470-4.680) mIU/L Urine Color (Yellow) Urine Appearance (Clear) Urine pH (4.6-8.0) Ur Specific [place] (1.005-1.030) Urine Protein (Negative) Urine Glucose (UA) (Negative) mg/dL Urine Ketones (Negative) Urine Blood (Negative) Urine Nitrite (Negative) Urine Bilirubin (Negative) Urine Urobilinogen (0.2) mg/dL Ur Leukocyte Esterase (Negative) U Hyaline Cast (Auto) (0-2) /LPF Urine Microscopic RBC (0-5) /HPF Urine Microscopic WBC (0-5) /HPF Ur Epithelial Cells (None Seen) /HPF Urine Bacteria (None Seen) /HPF Urine Culture Reflexed (NO) - Progress Progress Note: 12/26/24 20:[address] Díaz, patient's laboratory studies were reviewed and discussed with the patient, recommend that he follow-up to his primary care doctor next week - Departure Clinical Impression: Bladder incontinence Condition: Stable Critical Care Time: No Referrals: JUSTIN HEBERT MD [Primary Care Provider, [facility]] - Follow Up with PCP/3 days Instructions: Graves' disease, Urinary Incontinence, Adult ED
[2024-12-26 20:24] VITALS: BP 110/78
== END 2024-12-26 20:24 | disposition home or self-care (01) ==
LOC: ED 17:41
DX: R32 Unspecified urinary incontinence (principal); E05.00 Thyrotoxicosis with diffuse goiter without thyrotoxic crisis or storm; I10 Essential (primary) hypertension; Z72.0 Tobacco use